=== PATIENT | female | born 1965 | race Caucasian/White ===

== ENCOUNTER → 2016-10-26 | Outpatient (CLI) | payer OTHER ==
[~2016-10-26] MED LIST: /LOR25TA PO; /RALO60TA PO; /RISPSOL3 GT; ACET-654 PO; ACET325S2 PR; ACTO45TA PO; ALBU17IN INH; ALLE60TA69 PO; ALLI60CA2 PO; AMLO5TAB2 PO; ASMA1AER3 IN; ASPI81TA7 PO; BABY81CH PO; BENA25CA2 PO; BUPR10TASR PO; BUPR15TA PO; BUTACAP78 PO; CALCCHW12 PO; CETI10TA PO; COMBVENT INH; CYCL10TA PO; DARV100T; DARV100T PO; DICL1POW30 PO; DOCQ100C PO; EPIP0.3I2 IM; ETOD400T PO; FENO160T10 PO; FENO54TA2 PO; FERR325T PO; FERR325T3 PO; GABA300C2 PO; GLIP5TAB8 PO; GLUC1000 PO; HYDR-3713 PO; HYDR12.55 PO; HYDR25TA6 OR; INSULANT SC; LEVOTHYROXINE; LITH300T2 PO; MOBI15TA PO; MULTCAP PO; NIAS10003 PO; NICO14DI3 TD; OMEP20CA3 PO; OMEP40CA2 PO; PREG100CA PO; PREG50CA; PRIN10TA PO; PROP40SO PO; RALO1TAB PO; RISP-4 PO; RISP1TAB21 PO; ROBA750T4 PO; SALMDISK INH; SERO1TAB PO; SERO50TA PO; SIMV10TA2 PO; SING5CHW PO; TIZA4TAB PO; TOPA25TA10 PO; TRAZ100T PO; TYLENOL #3 OR; ULTR50TA PO; VIT D 2000 PO; VITA500C24 PO; WELL200T PO; ZOCO10TA PO; [UNRECOGNIZED DRUG - CODE] PO; [UNRECOGNIZED DRUG - OTHER] INH; asthmanex INH; symbicort INH
--- NOTE | 2016-11-12 01:31 | ECWPNPC ---
PATIENT NAME: JAMES LORENZO : 1965 GENDER: FEMALE VISIT DATE: 10/26/2016 DISCHARGE DATE: 10/26/16 1024 VISIT LOCKED DATE TIME: PHYSICIAN: SYED AZUL RESOURCE: SYED AZUL REASON FOR APPOINTMENT 1. BACK HISTORY OF PRESENT ILLNESS HISTORY OF PRESENT ILLNESS: PAIN THE PATIENT DESCRIBES THE PAIN... FALL RISK SCREENING: SCREENING :NO FALLS IN THE PAST YEAR TODAY'S VISIT: NOTES: RATES PAIN TODAY 05/27. REPORTS" HEADACHE FROM HELL", HAS BEEEN CONSTANT FOR 2 DAYS. IS ALSO HAVING A FIBRO FLAIR. NOTES SHE IS ITCHY ALL OVER. HAS SEASONAL ALLERGIES.. CURRENT MEDICATIONS TAKING BREO ELLIPTA 100-25 MCG/INH AEROSOL POWDER BREATH ACTIVATED 1 PUFF INHALATION ONCE A DAY AT NIGHT TAKING SEROQUEL 200 MG TABLET 1 TABLET AT BEDTIME ORALLY AT BEDTIME TAKING WELLBUTRIN SR 100 MG TABLET EXTENDED RELEASE ORALLY DAILY TAKING SADE ALLERGY 180 MG TABLET 1 TABLET ORALLY ONCE A DAY TAKING GLIPIZIDE 5 MG TABLET 1/2 TABLET ORALLY ONCE A DAY TAKING FENOFIBRATE 160 MG TABLET 1 TABLET WITH A MEAL ORALLY ONCE A DAY TAKING SINGULAIR 10 MG TABLET 1 TABLET IN THE EVENING ORALLY ONCE A DAY TAKING PRILOSEC 20 MG CAPSULE DELAYED RELEASE 1 CAPSULE ORALLY TWICE DAILY TAKING RISPERDAL 1 MG TABLET 1 TABLET ORALLY EVERY AM TAKING METFORMIN HCL 1000 MG TABLET 1 TABLET WITH MEALS ORALLY TWICE A DAY TAKING ONE TOUCH/ONE TOUCH II STARTER ONE TOUCH STIPS 1 STRIP SUBCUTANEOUSLY TWICE A DAY DX: 250.00 TAKING EVISTA 60 MG TABLET 1 TABLET ORALLY ONCE A DAY TAKING ASPIRIN 81 MG TABLET CHEWABLE 1 TABLET (TAKING TWICE A DAY) BY MOUTH ONCE A DAY TAKING RISPERDAL 0.5 MG TABLET 1 TABLET ORALLY AT BEDTIME TAKING TOPAMAX 100 MG TABLET 1/2 TAB IN AM, 1 TAB AT BEDTIME ORALLY TWICE A DAY TAKING PROPRANOLOL HCL CR 120 MG CAPSULE EXTENDED RELEASE 24 HOUR 1 CAPSULE ORALLY ONCE A DAY TAKING HYDROCHLOROTHIAZIDE 12.5 MG CAPSULE 1 CAPSULE ORALLY ONCE A DAY TAKING RASPBERRY KETONES 100 MG CAPSULE ORALLY TAKING BUSPAR 5 MG TABLET 1 TABLET ORALLY DAILY TAKING TIZANIDINE HCL 4 MG TABLET 1 TAB ORALLY EVERY 8 HOURS MDD 3 TABS TAKING NORCO 5-325 MG TABLET 1 TAB(S) ORALLY EVERY 6 HOURS PRN PAIN MDD=4 TAKING GABAPENTIN 400 MG CAPSULE 1 CAPSULE ORALLY THREE TIMES A DAY TAKING TRAMADOL HCL 50 MG TABLET 1 -2 TABLET ORALLY EVERY 4 -6 HRS PRN PAIN MDD = 6 TAKING ATORVASTATIN CALCIUM 20 MG TABLET 1 TABLET ORALLY ONCE A DAY TAKING TOUJEO SOLOSTAR 300 UNIT/ML SOLUTION PEN-INJECTOR 60 UNITS SUBCUTANEOUS DAILY DISCONTINUED LANTUS SOLOSTAR 100 UNIT/ML SOLUTION 60 UNITS SUBCUTANEOUS DAILY AT LUNCH TIME UNKNOWN CLOTRIMAZOLE-BETAMETHASONE 1-0.05 % CREAM 1 APPLICATION TO AFFECTED AREA EXTERNALLY TWICE A DAY NEEDED UNKNOWN SYRINGE 1CC SYRINGES 1 SYRINGE INTRAMUSCULARLY ONCE A DAY UNKNOWN BLOOD PRESSURE MONITOR DX: 401.9 HOME BLOOD PRESSURE MONITOR TWICE A DAY MEDICATION LIST REVIEWED AND RECONCILED WITH THE PATIENT PAST MEDICAL HISTORY BIPOLAR DISORDER-MANAGED BY DR. 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, INSULIN REQUIRING HYPOTHYROIDISM HYPERLIPIDEMIA 2B OBESITY, MORBID NONALCOHOLIC FATTY LIVER DISEASE-SEEN DIET FEBRUARY 2006 ULTRASOUND ANEMIA, IRON DEFICIENCY-PATIENT REFUSES ENDOSCOPY EARLY MENOPAUSE AT AGE 42 ALLERGIES PENICILLIN (FOR ALLERGIES USE ONLY): DEADLY: ALLERGY AMOXICILLIN: DEADLY: ALLERGY TEGRETOL: DEADLY: ALLERGY CLARITIN: SOB: ALLERGY NIASPAN: HIVES BACLOFEN: HALLUCINATIONS MOBIC: SEVERE MIGRAINES: SIDE EFFECTS CLINDAMYCIN HCL: ANAPHYLAXIS: ALLERGY SOCIAL HISTORY GENERAL: TOBACCO USE ARE YOU A:NONSMOKER LEARNING BARRIERS / SPECIAL NEEDS ORIENTED TO PLAN OF CARE: PATIENT, PAIN MANAGEMENT PATIENT, ORIENTED TO PLAN OF CARE: PATIENT, PAIN MANAGEMENT PATIENT. NEW PATIENT PAIN DIARY TODAY'S VISITNOTES FROM 0-10, WHAT LEVEL IS YOUR PAIN TODAY?0 PAIN CLINIC PFS, CLERGY, PUBLIC HEALTH REFERRALS PFS REFERRAL NEEDED?NO CLERGY REFERRAL NEEDED?NO PUBLIC HEALTH REFERRAL NEEDED?NO WAS THE PROVIDER NOTIFIED OF ANY PERTINENT INFO?NO PFS REFERRAL NEEDED?NO CLERGY REFERRAL NEEDED?NO PUBLIC HEALTH REFERRAL NEEDED?NO WAS THE PROVIDER NOTIFIED OF ANY PERTINENT INFO?NO REVIEW OF SYSTEMS CONSTITUTIONAL: ANY CHANGE IN YOUR MEDICAL CONDITION? NO . CHILLS NO . FEVER NO . INFECTION: DO YOU HAVE NEW INFECTIONS? NO . DO YOU HAVE HISTORY OF MRSA? NO . MUSCULOSKELETAL: ANY NEW PATTERNS OF PAIN OR NUMBNESS? NO . GASTROENTEROLOGY: ANY NEW CHANGE IN BOWEL CONTROL? NO . GENITOURINARY: ANY NEW CHANGE IN BLADDER CONTROL? NO . IS THERE A CHANCE YOU COULD BE ? NO . HEMATOLOGY/LYMPH: DO YOU TAKE ANY BLOOD THINNERS? (FOR EXAMPLE- COUMADIN, PLAVIX, AGGRENOX, PLATEL, PRADAXA, OR XARELTO) NO . WHEN WAS YOUR LAST DOSE? DATE: TIME: . NEUROLOGY: HAVE YOU FALLEN IN THE PAST 6 MONTHS? YES . ANY NEW EXTREMITY NUMBNESS OR WEAKNESS? NO . CARDIOLOGY: DO YOU HAVE A PACEMAKER OR DEFIBRILLATOR? NO . RESPIRATORY: HAVE YOU BEEN SICK IN THE PAST WEEK? NO . FEVER NO . FLU LIKE SYMPTOMS? NO . COUGH NO . INTEGUMENTARY: DO YOU HAVE ANY RASHES OR OPEN SORES? NO . ALLERGIC/IMMUNO: ARE YOU ALLERGIC TO SHELLFISH OR IV DYE? NO . ANY NEW ALLERGIES? NO . PSYCHIATRIC: DO YOU HAVE THOUGHTS OF HURTING YOURSELF OR SOMEONE ELSE? NO . ARE YOU ABUSED, NEGLECTED, OR IN AN UNSAFE ENVIRONMENT? NO . ENDOCRINOLOGY: ARE YOU DIABETIC? YES - NOTES LOW BLOOD SUGARS . OTHER: DO YOU NEED ANY PRESCRIPTIONS? YES . IF YES, PLEASE LIST: NOT SURE . ANY NEW PROBLEMS WITH YOUR MEDICATIONS? NO . WHEN DID YOU LAST EAT? ____ . WHEN DID YOU LAST DRINK? ____ . WHAT DID YOU LAST DRINK? ____ . NAME OF PERSON DRIVING YOU HOME? ____ . DO YOU HAVE ANY OTHER QUESTIONS OR CONCERNS NO . REVIEWED BY: PROVIDER: SYED SOUZA . VITAL SIGNS WT 170 LBS, HT 64 IN, BMI 29.18 INDEX, BP 150/80 MM HG, HR 72 /MIN, RR 18 /MIN, TEMP 97.2 F, OXYGEN SAT % 99%, NA INITIALS SC 09:42. EXAMINATION GENERAL EXAMINATION: PSYCHALERT , ORIENTED X 3 . NECK:BILATERAL THRYOID ENLARGEMENT. TENDER. LUNGS:LUNG SOUNDS ARE CLEAR. HEART:HEART RATE REGULAR. MUSCULOSKELETAL:MUSCLE STRENGTH TESTING 5/5 BILATERAL LOWER EXTREMITIES. ABLE TO RISE TO STANDING POSITION. POSTURE STOOPED. GAIT SLOW. , TRIGGER POINTS:, ELICITED WITH PALPATION OVER LUMBAR PARAVERTEBRAL MUSCLES AND INTO THE SACRUM. RESTRICTION OF ROM IN THIS AREA. . ASSESSMENTS MYALGIA - M79.1 (PRIMARY) LUMBAR DISC DISPLACEMENT WITHOUT MYELOPATHY - M51.26 CHRONIC PRESCRIPTION OPIATE USE - Z79.899 TREATMENT MYALGIA TRIGGER POINT 3 + SYED MISHRA 10/26/2016 10:14:52 AM > NECK AND SHOULDERS NOTES: KEEP TRACK OF BLOOD SUGARS FOR DR PERAZA. MUST BRING MEDS TO VISIT. WALK TOLERATED. LIFT 1 LB WEIGHTS FOR UPPER BODY EXERCISE. PROCEDURE CODES 33270 INJECT TRIGGER POINTS, =/> 3 FOLLOW UP AFTER INJECTION ELECTRONICALLY SIGNED BY SAQIB ALEJO ON 11/09/2016 AT 09:43 AM EST DISCLAIMER : THIS IS A VISIT SUMMARY EXTRACTED FROM THE [employer] CHART. IT IS NOT A COPY OF THE [employer] PROGRESS NOTE. LETHA
== END ==
LOC: M PAIN 09:20
PROVIDERS: ATTEND Nurse Practitioner Family
DX: Z09 Encounter for follow-up examination after completed treatment for conditions other than malignant neoplasm (principal); M79.1 Myalgia; M51.26 Other intervertebral disc displacement, lumbar region; M51.36 Other intervertebral disc degeneration, lumbar region; E11.9 Type 2 diabetes mellitus without complications; Z79.4 Long term (current) use of insulin; E03.9 Hypothyroidism, unspecified; E78.5 Hyperlipidemia, unspecified; D50.9 Iron deficiency anemia, unspecified; K76.0 Fatty (change of) liver, not elsewhere classified; E66.9 Obesity, unspecified; Z68.29 Body mass index [BMI] 29.0-29.9, adult; J44.9 Chronic obstructive pulmonary disease, unspecified; I10 Essential (primary) hypertension; I87.2 Venous insufficiency (chronic) (peripheral); R60.0 Localized edema; F17.200 Nicotine dependence, unspecified, uncomplicated; E28.319 Asymptomatic premature menopause; F31.9 Bipolar disorder, unspecified; Z88.0 Allergy status to penicillin; Z88.1 Allergy status to other antibiotic agents; Z88.8 Allergy status to other drugs, medicaments and biological substances; Z79.84 Long term (current) use of oral hypoglycemic drugs; Z79.82 Long term (current) use of aspirin; Z79.891 Long term (current) use of opiate analgesic; Z79.899 Other long term (current) drug therapy; Z85.59 Personal history of malignant neoplasm of other urinary tract organ

== ENCOUNTER → 2016-11-05 | Outpatient (CLI) | payer OTHER ==
[~2016-11-05] MED LIST changes: +BUPIVACAINE HCL 0.25% 10 ML VIAL As Ordered ONE; +BUPIVACAINE HCL 0.25% 30 ML VIAL As Ordered ONE; +TRIAMCINOLONE ACETONIDE SUSP 40 MG/ML VIAL (J3301) As Ordered ONE
--- NOTE | 2016-11-08 23:39 | ECWPNPC ---
PATIENT NAME: JAMES LORENZO : 1965 GENDER: FEMALE VISIT DATE: 11/05/2016 DISCHARGE DATE: 11/05/16 09 VISIT LOCKED DATE TIME: PHYSICIAN: HENRY STEVENS RESOURCE: HENRY STEVENS REASON FOR APPOINTMENT 1. TPI HISTORY OF PRESENT ILLNESS HISTORY OF PRESENT ILLNESS: PAIN THE PATIENT DESCRIBES THE PAIN... FALL RISK SCREENING: SCREENING :NO FALLS IN THE PAST YEAR CURRENT MEDICATIONS TAKING BREO ELLIPTA 100-25 MCG/INH AEROSOL POWDER BREATH ACTIVATED 1 PUFF INHALATION ONCE A DAY AT NIGHT, NOTES: 1 MONTH AGO TAKING SEROQUEL 200 MG TABLET 1 TABLET AT BEDTIME ORALLY AT BEDTIME, NOTES: 11/04 11PM TAKING WELLBUTRIN SR 100 MG TABLET EXTENDED RELEASE ORALLY DAILY, NOTES: 11/05 7AM TAKING SADE ALLERGY 180 MG TABLET 1 TABLET ORALLY ONCE A DAY, NOTES: 11/04 9PM TAKING GLIPIZIDE 5 MG TABLET 1/2 TABLET ORALLY ONCE A DAY, NOTES: 11/04 9AM TAKING FENOFIBRATE 160 MG TABLET 1 TABLET WITH A MEAL ORALLY ONCE A DAY, NOTES: 11/04 9PM TAKING SINGULAIR 10 MG TABLET 1 TABLET IN THE EVENING ORALLY ONCE A DAY, NOTES: 11/05 7AM TAKING PRILOSEC 20 MG CAPSULE DELAYED RELEASE 1 CAPSULE ORALLY TWICE DAILY, NOTES: 11/05 7AM TAKING RISPERDAL 1 MG TABLET 1 TABLET ORALLY EVERY AM, NOTES: 11/05 7AM TAKING METFORMIN HCL 1000 MG TABLET 1 TABLET WITH MEALS ORALLY TWICE A DAY, NOTES: 11/04 9AM TAKING ONE TOUCH/ONE TOUCH II STARTER ONE TOUCH STIPS 1 STRIP SUBCUTANEOUSLY TWICE A DAY DX: 250.00 TAKING EVISTA 60 MG TABLET 1 TABLET ORALLY ONCE A DAY, NOTES: 11/05 7AM TAKING ASPIRIN 81 MG TABLET CHEWABLE 1 TABLET (TAKING TWICE A DAY) BY MOUTH ONCE A DAY, NOTES: 1 MONTH AGO TAKING RISPERDAL 0.5 MG TABLET 1 TABLET ORALLY AT BEDTIME, NOTES: 11/04 9PM TAKING TOPAMAX 100 MG TABLET 1/2 TAB IN AM, 1 TAB AT BEDTIME ORALLY TWICE A DAY, NOTES: 11/05 7AM TAKING PROPRANOLOL HCL CR 120 MG CAPSULE EXTENDED RELEASE 24 HOUR 1 CAPSULE ORALLY ONCE A DAY, NOTES: 11/05 7AM TAKING RASPBERRY KETONES 100 MG CAPSULE ORALLY , NOTES: 11/05 7AM TAKING BUSPAR 5 MG TABLET 1 TABLET ORALLY DAILY, NOTES: 11/05 7AM TAKING TIZANIDINE HCL 4 MG TABLET 1 TAB ORALLY EVERY 8 HOURS MDD 3 TABS, NOTES: 11/05 7AM TAKING NORCO 5-325 MG TABLET 1 TAB(S) ORALLY EVERY 6 HOURS PRN PAIN MDD=4, NOTES: 11/05 7AM TAKING GABAPENTIN 400 MG CAPSULE 1 CAPSULE ORALLY THREE TIMES A DAY, NOTES: 11/05 7AM TAKING TRAMADOL HCL 50 MG TABLET 1 -2 TABLET ORALLY EVERY 4 -6 HRS PRN PAIN MDD = 6, NOTES: 11/05 7AM TAKING ATORVASTATIN CALCIUM 20 MG TABLET 1 TABLET ORALLY ONCE A DAY, NOTES: 11/05 7AM TAKING TOUJEO SOLOSTAR 300 UNIT/ML SOLUTION PEN-INJECTOR 60 UNITS SUBCUTANEOUS DAILY TAKING LANTUS 100 UNIT/ML SOLUTION 60 UNITS SUBCUTANEOUS DAILY, NOTES: 11/04 12NOON NOT-TAKING HYDROCHLOROTHIAZIDE 12.5 MG CAPSULE 1 CAPSULE ORALLY ONCE A DAY UNKNOWN CLOTRIMAZOLE-BETAMETHASONE 1-0.05 % CREAM 1 APPLICATION TO AFFECTED AREA EXTERNALLY TWICE A DAY NEEDED UNKNOWN SYRINGE 1CC SYRINGES 1 SYRINGE INTRAMUSCULARLY ONCE A DAY UNKNOWN BLOOD PRESSURE MONITOR DX: 401.9 HOME BLOOD PRESSURE MONITOR TWICE A DAY MEDICATION LIST REVIEWED AND RECONCILED WITH THE PATIENT PAST MEDICAL HISTORY BIPOLAR DISORDER-MANAGED BY DR. 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, INSULIN REQUIRING HYPOTHYROIDISM HYPERLIPIDEMIA 2B OBESITY, MORBID NONALCOHOLIC FATTY LIVER DISEASE-SEEN DIET FEBRUARY 2006 ULTRASOUND ANEMIA, IRON DEFICIENCY-PATIENT REFUSES ENDOSCOPY EARLY MENOPAUSE AT AGE 42 ALLERGIES PENICILLIN (FOR ALLERGIES USE ONLY): DEADLY: ALLERGY AMOXICILLIN: DEADLY: ALLERGY TEGRETOL: DEADLY: ALLERGY CLARITIN: SOB: ALLERGY NIASPAN: HIVES BACLOFEN: HALLUCINATIONS MOBIC: SEVERE MIGRAINES: SIDE EFFECTS CLINDAMYCIN HCL: ANAPHYLAXIS: ALLERGY SOCIAL HISTORY GENERAL: TOBACCO USE ARE YOU A:NONSMOKER LEARNING BARRIERS / SPECIAL NEEDS ORIENTED TO PLAN OF CARE: PATIENT, PAIN MANAGEMENT PATIENT, ORIENTED TO PLAN OF CARE: PATIENT, PAIN MANAGEMENT PATIENT. NEW PATIENT PAIN DIARY TODAY'S VISITNOTES FROM 0-10, WHAT LEVEL IS YOUR PAIN TODAY?0 PAIN CLINIC PFS, CLERGY, PUBLIC HEALTH REFERRALS PFS REFERRAL NEEDED?NO CLERGY REFERRAL NEEDED?NO PUBLIC HEALTH REFERRAL NEEDED?NO WAS THE PROVIDER NOTIFIED OF ANY PERTINENT INFO?NO PFS REFERRAL NEEDED?NO CLERGY REFERRAL NEEDED?NO PUBLIC HEALTH REFERRAL NEEDED?NO WAS THE PROVIDER NOTIFIED OF ANY PERTINENT INFO?NO REVIEW OF SYSTEMS CONSTITUTIONAL: ANY CHANGE IN YOUR MEDICAL CONDITION? NO . CHILLS NO . FEVER NO . INFECTION: DO YOU HAVE NEW INFECTIONS? NO . DO YOU HAVE HISTORY OF MRSA? NO . MUSCULOSKELETAL: ANY NEW PATTERNS OF PAIN OR NUMBNESS? NO . GASTROENTEROLOGY: ANY NEW CHANGE IN BOWEL CONTROL? NO . GENITOURINARY: ANY NEW CHANGE IN BLADDER CONTROL? NO . IS THERE A CHANCE YOU COULD BE ? NO . HEMATOLOGY/LYMPH: DO YOU TAKE ANY BLOOD THINNERS? (FOR EXAMPLE- COUMADIN, PLAVIX, AGGRENOX, PLATEL, PRADAXA, OR XARELTO) NO . WHEN WAS YOUR LAST DOSE? DATE: TIME: . NEUROLOGY: HAVE YOU FALLEN IN THE PAST 6 MONTHS? YES, PT STATES THAT SHE WAS OUT WALKING AND TRIPPED OVER SHOELACE, NO INJURY FROM FALL, NO REPORT TO ED . ANY NEW EXTREMITY NUMBNESS OR WEAKNESS? NO . CARDIOLOGY: DO YOU HAVE A PACEMAKER OR DEFIBRILLATOR? NO . RESPIRATORY: HAVE YOU BEEN SICK IN THE PAST WEEK? NO . FEVER NO . FLU LIKE SYMPTOMS? NO . COUGH NO . INTEGUMENTARY: DO YOU HAVE ANY RASHES OR OPEN SORES? NO . ALLERGIC/IMMUNO: ARE YOU ALLERGIC TO SHELLFISH OR IV DYE? NO . ANY NEW ALLERGIES? NO . PSYCHIATRIC: DO YOU HAVE THOUGHTS OF HURTING YOURSELF OR SOMEONE ELSE? NO . ARE YOU ABUSED, NEGLECTED, OR IN AN UNSAFE ENVIRONMENT? NO . ENDOCRINOLOGY: ARE YOU DIABETIC? YES, PT STATES FSBS 134 AT 6AM . OTHER: DO YOU NEED ANY PRESCRIPTIONS? NO . IF YES, PLEASE LIST: ____ . ANY NEW PROBLEMS WITH YOUR MEDICATIONS? NO . WHEN DID YOU LAST EAT? 11/04 9PM . WHEN DID YOU LAST DRINK? 11/05 6:30AM . WHAT DID YOU LAST DRINK? BLACK COFFEE . NAME OF PERSON DRIVING YOU HOME? ELI WISEMANJEANNIEClaudia . DO YOU HAVE ANY OTHER QUESTIONS OR CONCERNS NO, PT STATES THAT SHE HAS NOT HAD FLU SHOT IN YEARS. . REVIEWED BY: PROVIDER: . VITAL SIGNS WT 170 LBS, HT 64 IN, BMI 29.18 INDEX, BP 142/68 MM HG, HR 76 /MIN, RR 16 /MIN, TEMP 97.2 F, OXYGEN SAT % 96, SAFE IN ENV? (Y/N) Y, NA INITIALS TL 0850, REVIEWED BY: TIANNA. ASSESSMENTS MYALGIA - M79.1 (PRIMARY) PROCEDURES PN TRIGGER POINT INJECTION WITH STEROIDS PRE PROCEDURE DIAGNOSIS 1. MYALGIA 2. PAIN AT LEFT SHOULDER AREA AND BILATERAL LOW BACK AREA POST PROCEDURE DIAGNOSIS 1. MYALGIA 2. PAIN AT LEFT SHOULDER AREA AND BILATERAL LOW BACK AREA PROCEDURE TRIGGER POINT INJECTION AT LEFT SHOULDER AREA AND BILATERAL LOW BACK AREA SURGEON DR. HENRY STEVENS MANAGER COSTING NONE ANESTHESIA LOCAL PRE PROCEDURE NOTE THE PATIENT HAS A HISTORY OF CHRONIC PAIN AT THE LEFT SHOULDER AREA AND RIGHT AND LEFT LOW BACK AREA. I EVALUATE THE PATIENT AND REVIEWED THE CHART. THERE IS EVIDENCE OF BANDS OF TISSUE WITH RESTRICTION OF MOVEMENT AND PRESENCE OF TRIGGER POINT AT THE AFFECTED AREA. I WENT OVER THE RISKS, ALTERNATIVES, AND BENEFITS ASSOCIATED WITH THIS PROCEDURE. THE PATIENT WOULD LIKE TO PROCEED AND GIVE CONSENT TO PERFORMED THE PROCEDURE. THE PATIENT DENIES UNEXPLAINABLE WEIGHT LOSS, FEVER, CHILLS, OR NEW CHANGES IN URINARY OR BOWEL CONTROL DESCRIPTION OF PROCEDURE THE PATIENT WAS BROUGHT TO THE PROCEDURE ROOM AND PLACED IN THE SITTING POSITION. THE AREA WAS CLEANED WITH ALCOHOL. THE PROCEDURE WAS DONE USING ASEPTIC STERILE TECHNIQUE. I CHECKED LATERALITY AND THE LEVEL WHERE THE PROCEDURE WAS GOING TO BE PERFORMED WITH THE PATIENT AND THE SUPPORTING STAFF AT THE MOMENT OF THE TIME OUT IN THE PROCEDURE ROOM. USING A 25-GAUGE NEEDLE, TRIGGER POINTS WERE INJECTED AT THE LEFT SHOULDER AREA AND RIGHT AND LEFT LOW BACK AREA WITH A TOTAL OF 40 ML OF BUPIVACAINE 0.25% AND KENALOG 40 MG. THERE WAS NO EVIDENCE OF BLOOD, PARESTHESIA OR CEREBROSPINAL FLUID DURING THE PROCEDURE. THE PATIENT WAS SENT TO THE RECOVERY ROOM. THE PATIENT WAS MOVING THE EXTREMITIES AND DOING WELL. THERE WAS NO COMPLICATION DURING THE PROCEDURE POST PROCEDURE NOTE THE PATIENT WILL BE SEEN IN A FOLLOW UP IN THE NEXT FEW WEEKS. INSTRUCTIONS WERE GIVEN, QUESTIONS WERE ANSWERED, AND THE PATIENT EXPRESSED UNDERSTANDING AND AGREES WITH THE PLAN. INSTRUCTIONS WERE GIVEN, QUESTIONS WERE ANSWERED, PATIENT REPORTS UNDERSTANDING AND AGREES WITH THE PLAN. I, LEORA GARCIA, DOCUMENTED THE ABOVE INFORMATION ACTING A SCRIBE FOR DR. STEVENS. I HAVE REVIEWED THE ABOVE DOCUMENT, WRITTEN BY LEORA GARCIA SCRIBCarey AND I VERIFY THAT IT IS ACCURATE. PROCEDURE CODES 78741 INJECT TRIGGER POINTS 3/> FOLLOW UP 3 WEEKS ELECTRONICALLY SIGNED BY HENRY STEVENS MD ON 11/08/2016 AT 10:50 PM EST DISCLAIMER : THIS IS A VISIT SUMMARY EXTRACTED FROM THE [employer] CHART. IT IS NOT A COPY OF THE [employer] PROGRESS NOTE. LETHA
== END ==
LOC: M PAIN 09:00
PROVIDERS: ATTEND Anesthesiology
DX: G89.29 Other chronic pain (principal); M79.1 Myalgia; M25.512 Pain in left shoulder; M54.5 Low back pain; F31.9 Bipolar disorder, unspecified; E11.9 Type 2 diabetes mellitus without complications; Z79.4 Long term (current) use of insulin; E78.5 Hyperlipidemia, unspecified; E03.9 Hypothyroidism, unspecified; J44.9 Chronic obstructive pulmonary disease, unspecified; I10 Essential (primary) hypertension; I87.2 Venous insufficiency (chronic) (peripheral); E66.9 Obesity, unspecified; Z68.29 Body mass index [BMI] 29.0-29.9, adult; M51.36 Other intervertebral disc degeneration, lumbar region; K76.0 Fatty (change of) liver, not elsewhere classified; D64.9 Anemia, unspecified; Z88.0 Allergy status to penicillin; Z88.1 Allergy status to other antibiotic agents; Z88.5 Allergy status to narcotic agent; Z88.8 Allergy status to other drugs, medicaments and biological substances; Z79.84 Long term (current) use of oral hypoglycemic drugs; Z79.82 Long term (current) use of aspirin; Z79.891 Long term (current) use of opiate analgesic; Z79.899 Other long term (current) drug therapy; Z87.891 Personal history of nicotine dependence; Z85.59 Personal history of malignant neoplasm of other urinary tract organ
CPT/HCPCS: 20553; J3301

== ENCOUNTER → 2016-11-20 | Outpatient (CLI) | payer OTHER ==
[~2016-11-20] MED LIST changes: -BUPIVACAINE HCL 0.25% 10 ML VIAL As Ordered ONE; -BUPIVACAINE HCL 0.25% 30 ML VIAL As Ordered ONE; -TRIAMCINOLONE ACETONIDE SUSP 40 MG/ML VIAL (J3301) As Ordered ONE
--- NOTE | 2016-12-10 01:25 | ECWPNPC ---
PATIENT NAME: JAMES LORENZO : 1965 GENDER: FEMALE VISIT DATE: 11/20/2016 DISCHARGE DATE: 11/20/16 1142 VISIT LOCKED DATE TIME: PHYSICIAN: SYED AZUL RESOURCE: SYED AZUL REASON FOR APPOINTMENT 1. POST PROCEDURE- SHOULDER/LBP HISTORY OF PRESENT ILLNESS HISTORY OF PRESENT ILLNESS: PAIN THE PATIENT DESCRIBES THE PAIN... FALL RISK SCREENING: SCREENING :NO FALLS IN THE PAST YEAR TODAY'S VISIT: NOTES: RATES PAIN TODAY 8/10. NOTES PAIN IS CONSTANT, ACHING AND BURNING, SHARP. NOTES FIBROMYALGIA IS BOTHING SHOULDERS AND ARMS.IS S/P TPI ON 11/05/16. THIS SIGNIF IMPROVED THE MOBILITY BUT ONLY HAD PAIN REDUCTION FOR A DAY OR SO. HAS BEEN HAVING URI SX.. CURRENT MEDICATIONS TAKING BREO ELLIPTA 100-25 MCG/INH AEROSOL POWDER BREATH ACTIVATED 1 PUFF INHALATION ONCE A DAY AT NIGHT, NOTES: 1 MONTH AGO TAKING SEROQUEL 200 MG TABLET 1 TABLET AT BEDTIME ORALLY AT BEDTIME, NOTES: 11/04 11PM TAKING WELLBUTRIN SR 100 MG TABLET EXTENDED RELEASE ORALLY DAILY, NOTES: 11/05 7AM TAKING SADE ALLERGY 180 MG TABLET 1 TABLET ORALLY ONCE A DAY, NOTES: 11/04 9PM TAKING GLIPIZIDE 5 MG TABLET 1/2 TABLET ORALLY ONCE A DAY, NOTES: 11/04 9AM TAKING FENOFIBRATE 160 MG TABLET 1 TABLET WITH A MEAL ORALLY ONCE A DAY, NOTES: 11/04 9PM TAKING SINGULAIR 10 MG TABLET 1 TABLET IN THE EVENING ORALLY ONCE A DAY, NOTES: 11/05 7AM TAKING PRILOSEC 20 MG CAPSULE DELAYED RELEASE 1 CAPSULE ORALLY TWICE DAILY, NOTES: 11/05 7AM TAKING RISPERDAL 1 MG TABLET 1 TABLET ORALLY EVERY AM, NOTES: 11/05 7AM TAKING METFORMIN HCL 1000 MG TABLET 1 TABLET WITH MEALS ORALLY TWICE A DAY, NOTES: 11/04 9AM TAKING ONE TOUCH/ONE TOUCH II STARTER ONE TOUCH STIPS 1 STRIP SUBCUTANEOUSLY TWICE A DAY DX: 250.00 TAKING EVISTA 60 MG TABLET 1 TABLET ORALLY ONCE A DAY, NOTES: 11/05 7AM TAKING ASPIRIN 81 MG TABLET CHEWABLE 1 TABLET (TAKING TWICE A DAY) BY MOUTH ONCE A DAY, NOTES: 1 MONTH AGO TAKING RISPERDAL 0.5 MG TABLET 1 TABLET ORALLY AT BEDTIME, NOTES: 11/04 9PM TAKING PROPRANOLOL HCL CR 120 MG CAPSULE EXTENDED RELEASE 24 HOUR 1 CAPSULE ORALLY ONCE A DAY, NOTES: 11/05 7AM TAKING RASPBERRY KETONES 100 MG CAPSULE ORALLY , NOTES: 11/05 7AM TAKING BUSPAR 5 MG TABLET 1 TABLET ORALLY DAILY, NOTES: 11/05 7AM TAKING TIZANIDINE HCL 4 MG TABLET 1 TAB ORALLY EVERY 8 HOURS MDD 3 TABS, NOTES: 11/05 7AM TAKING NORCO 5-325 MG TABLET 1 TAB(S) ORALLY EVERY 6 HOURS PRN PAIN MDD=4, NOTES: 11/05 7AM TAKING GABAPENTIN 400 MG CAPSULE 1 CAPSULE ORALLY THREE TIMES A DAY, NOTES: 11/05 7AM TAKING TRAMADOL HCL 50 MG TABLET 1 -2 TABLET ORALLY EVERY 4 -6 HRS PRN PAIN MDD = 6, NOTES: 11/05 7AM TAKING ATORVASTATIN CALCIUM 20 MG TABLET 1 TABLET ORALLY ONCE A DAY, NOTES: 11/05 7AM TAKING TOUJEO SOLOSTAR 300 UNIT/ML SOLUTION PEN-INJECTOR 60 UNITS SUBCUTANEOUS DAILY TAKING LANTUS 100 UNIT/ML SOLUTION 60 UNITS SUBCUTANEOUS DAILY, NOTES: 11/04 12NOON TAKING TOPAMAX 100 MG TABLET 1 TABLET ORALLY TWICE A DAY NOT-TAKING HYDROCHLOROTHIAZIDE 12.5 MG CAPSULE 1 CAPSULE ORALLY ONCE A DAY UNKNOWN CLOTRIMAZOLE-BETAMETHASONE 1-0.05 % CREAM 1 APPLICATION TO AFFECTED AREA EXTERNALLY TWICE A DAY NEEDED UNKNOWN SYRINGE 1CC SYRINGES 1 SYRINGE INTRAMUSCULARLY ONCE A DAY UNKNOWN BLOOD PRESSURE MONITOR DX: 401.9 HOME BLOOD PRESSURE MONITOR TWICE A DAY MEDICATION LIST REVIEWED AND RECONCILED WITH THE PATIENT PAST MEDICAL HISTORY BIPOLAR DISORDER-MANAGED BY DR. 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, INSULIN REQUIRING HYPOTHYROIDISM HYPERLIPIDEMIA 2B OBESITY, MORBID NONALCOHOLIC FATTY LIVER DISEASE-SEEN DIET FEBRUARY 2006 ULTRASOUND ANEMIA, IRON DEFICIENCY-PATIENT REFUSES ENDOSCOPY EARLY MENOPAUSE AT AGE 42 ALLERGIES PENICILLIN (FOR ALLERGIES USE ONLY): DEADLY: ALLERGY AMOXICILLIN: DEADLY: ALLERGY TEGRETOL: DEADLY: ALLERGY CLARITIN: SOB: ALLERGY NIASPAN: HIVES BACLOFEN: HALLUCINATIONS MOBIC: SEVERE MIGRAINES: SIDE EFFECTS CLINDAMYCIN HCL: ANAPHYLAXIS: ALLERGY SOCIAL HISTORY GENERAL: TOBACCO USE ARE YOU A:NONSMOKER LEARNING BARRIERS / SPECIAL NEEDS ORIENTED TO PLAN OF CARE: PATIENT, PAIN MANAGEMENT PATIENT, ORIENTED TO PLAN OF CARE: PATIENT, PAIN MANAGEMENT PATIENT. NEW PATIENT PAIN DIARY TODAY'S VISITNOTES FROM 0-10, WHAT LEVEL IS YOUR PAIN TODAY?0 PAIN CLINIC PFS, CLERGY, PUBLIC HEALTH REFERRALS PFS REFERRAL NEEDED?NO CLERGY REFERRAL NEEDED?NO PUBLIC HEALTH REFERRAL NEEDED?NO WAS THE PROVIDER NOTIFIED OF ANY PERTINENT INFO?NO PFS REFERRAL NEEDED?NO CLERGY REFERRAL NEEDED?NO PUBLIC HEALTH REFERRAL NEEDED?NO WAS THE PROVIDER NOTIFIED OF ANY PERTINENT INFO?NO REVIEW OF SYSTEMS CONSTITUTIONAL: ANY CHANGE IN YOUR MEDICAL CONDITION? NO . CHILLS NO . FEVER NO . INFECTION: DO YOU HAVE NEW INFECTIONS? NO . DO YOU HAVE HISTORY OF MRSA? NO . MUSCULOSKELETAL: ANY NEW PATTERNS OF PAIN OR NUMBNESS? NO . GASTROENTEROLOGY: ANY NEW CHANGE IN BOWEL CONTROL? NO . GENITOURINARY: ANY NEW CHANGE IN BLADDER CONTROL? NO . IS THERE A CHANCE YOU COULD BE ? NO . HEMATOLOGY/LYMPH: DO YOU TAKE ANY BLOOD THINNERS? (FOR EXAMPLE- COUMADIN, PLAVIX, AGGRENOX, PLATEL, PRADAXA, OR XARELTO) NO . WHEN WAS YOUR LAST DOSE? DATE: TIME: . NEUROLOGY: HAVE YOU FALLEN IN THE PAST 6 MONTHS? YES . ANY NEW EXTREMITY NUMBNESS OR WEAKNESS? NO . CARDIOLOGY: DO YOU HAVE A PACEMAKER OR DEFIBRILLATOR? NO . RESPIRATORY: HAVE YOU BEEN SICK IN THE PAST WEEK? YES . FEVER NO . FLU LIKE SYMPTOMS? NO . COUGH YES . INTEGUMENTARY: DO YOU HAVE ANY RASHES OR OPEN SORES? NO . ALLERGIC/IMMUNO: ARE YOU ALLERGIC TO SHELLFISH OR IV DYE? NO . ANY NEW ALLERGIES? NO . PSYCHIATRIC: DO YOU HAVE THOUGHTS OF HURTING YOURSELF OR SOMEONE ELSE? NO . ARE YOU ABUSED, NEGLECTED, OR IN AN UNSAFE ENVIRONMENT? NO . ENDOCRINOLOGY: ARE YOU DIABETIC? YES . OTHER: DO YOU NEED ANY PRESCRIPTIONS? YES . IF YES, PLEASE LIST: HYDROCODONE . ANY NEW PROBLEMS WITH YOUR MEDICATIONS? NO . WHEN DID YOU LAST EAT? ____ . WHEN DID YOU LAST DRINK? ____ . WHAT DID YOU LAST DRINK? ____ . NAME OF PERSON DRIVING YOU HOME? ____ . DO YOU HAVE ANY OTHER QUESTIONS OR CONCERNS NO . REVIEWED BY: PROVIDER: SYED WELLERP . VITAL SIGNS WT 170 LBS, HT 64 IN, BMI 29.18 INDEX, BP 140/80 MANUAL, HR 79 /MIN, RR 18 /MIN, TEMP 98.6 F, OXYGEN SAT % 95%, NA INITIALS SC 11:06, REVIEWED BY: RORY. EXAMINATION GENERAL EXAMINATION: PSYCHALERT , ORIENTED X 3 . NECK:BILATERAL THRYOID ENLARGEMENT. TENDER. LUNGS:LUNG SOUNDS ARE CLEAR. HEART:HEART RATE REGULAR. MUSCULOSKELETAL:MUSCLE STRENGTH TESTING 5/5 BILATERAL LOWER EXTREMITIES. ABLE TO RISE TO STANDING POSITION. POSTURE STOOPED. GAIT SLOW. , TRIGGER POINTS:, ELICITED WITH PALPATION OVER LUMBAR PARAVERTEBRAL MUSCLES AND INTO THE SACRUM. RESTRICTION OF ROM IN THIS AREA. . 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 TREATMENT MYALGIA REFILL NORCO TABLET, 5-325 MG, 1 TAB(S), ORALLY, EVERY 8 HOURS PRN PAIN MDD=3, 30 DAY(S), 120, REFILLS 0 START TESSALON PERLES CAPSULE, 100 MG, 1 CAPSULE NEEDED, ORALLY, THREE TIMES A DAY PRN COUGH, 10 DAY(S), 30, REFILLS 1 START [id number] CAPSULE, 24-485-11-30 MG, 1 CAPSULE NEEDED, ORALLY, EVERY 4 HRS PRN MIGRAINE MDD=2, 30 DAY(S), 30, REFILLS 1 START DULOXETINE HCL CAPSULE DELAYED RELEASE PARTICLES, 30 MG, 1 CAPSULE, ORALLY, DAILY, 30 DAY(S), 30 CAPSULE, REFILLS 1 PROCEDURE CODES [id number] ESTABILISHED PATIENT [facility] CHARGE DISPOSITION & COMMUNICATION FOLLOW UP 1 MONTHS ELECTRONICALLY SIGNED BY SAQIB ALEJO ON 12/09/2016 AT 12:10 PM EST DISCLAIMER : THIS IS A VISIT SUMMARY EXTRACTED FROM THE [facility] CHART. IT IS NOT A COPY OF THE [facility] PROGRESS NOTE. MTDD
== END ==
LOC: M PAIN 10:40
PROVIDERS: ATTEND Nurse Practitioner Family
DX: M79.1 Myalgia (principal); Z79.82 Long term (current) use of aspirin; Z79.84 Long term (current) use of oral hypoglycemic drugs; Z79.4 Long term (current) use of insulin; Z79.891 Long term (current) use of opiate analgesic; Z79.899 Other long term (current) drug therapy; I10 Essential (primary) hypertension; E11.9 Type 2 diabetes mellitus without complications

== ENCOUNTER → 2016-12-18 | Outpatient (CLI) | payer OTHER ==
--- NOTE | 2016-12-19 00:42 | ECWPNPC ---
PATIENT NAME: JAMES LORENZO : 1965 GENDER: FEMALE VISIT DATE: 12/18/2016 DISCHARGE DATE: 12/18/16 1136 VISIT LOCKED DATE TIME: PHYSICIAN: SYED AZUL RESOURCE: SYED AZUL REASON FOR APPOINTMENT 1. FIBROMIALGA HISTORY OF PRESENT ILLNESS HISTORY OF PRESENT ILLNESS: PAIN THE PATIENT DESCRIBES THE PAIN... FALL RISK SCREENING: SCREENING :NO FALLS IN THE PAST YEAR TODAY'S VISIT: NOTES: INCREASED PAIN AND MUSCLE SPASMS AT BACK OF HEAD, NECK AND SHOULDERS.RATES PAIN TODAY 7/10. DESCRIBES PAIN TIGHT, TENDER, SORE AND SHOOTING. CONTINUES TO HAVE SOME TIGHTNESS AT LOW BACK. NO RECENT FALLS. CURRENT MEDICATIONS TAKING BREO ELLIPTA 100-25 MCG/INH AEROSOL POWDER BREATH ACTIVATED 1 PUFF INHALATION ONCE A DAY AT NIGHT, NOTES: 1 MONTH AGO TAKING SEROQUEL 100 MG TABLET 1 TABLET AT BEDTIME ORALLY AT BEDTIME, NOTES: 11/04 11PM TAKING WELLBUTRIN SR 100 MG TABLET EXTENDED RELEASE ORALLY DAILY, NOTES: 11/05 7AM TAKING SADE ALLERGY 180 MG TABLET 1 TABLET ORALLY ONCE A DAY, NOTES: 11/04 9PM TAKING GLIPIZIDE 5 MG TABLET 1/2 TABLET ORALLY ONCE A DAY, NOTES: 11/04 9AM TAKING FENOFIBRATE 160 MG TABLET 1 TABLET WITH A MEAL ORALLY ONCE A DAY, NOTES: 11/04 9PM TAKING SINGULAIR 10 MG TABLET 1 TABLET IN THE EVENING ORALLY ONCE A DAY, NOTES: 11/05 7AM TAKING PRILOSEC 20 MG CAPSULE DELAYED RELEASE 1 CAPSULE ORALLY TWICE DAILY, NOTES: 11/05 7AM TAKING RISPERDAL 1 MG TABLET 1 TABLET ORALLY EVERY AM, NOTES: 11/05 7AM TAKING METFORMIN HCL 1000 MG TABLET 1 TABLET WITH MEALS ORALLY TWICE A DAY, NOTES: 11/04 9AM TAKING ONE TOUCH/ONE TOUCH II STARTER ONE TOUCH STIPS 1 STRIP SUBCUTANEOUSLY TWICE A DAY DX: 250.00 TAKING EVISTA 60 MG TABLET 1 TABLET ORALLY ONCE A DAY, NOTES: 11/05 7AM TAKING ASPIRIN 81 MG TABLET CHEWABLE 1 TABLET (TAKING TWICE A DAY) BY MOUTH ONCE A DAY TAKING RISPERDAL 0.5 MG TABLET 1 TABLET ORALLY AT BEDTIME TAKING PROPRANOLOL HCL CR 120 MG CAPSULE EXTENDED RELEASE 24 HOUR 1 CAPSULE ORALLY ONCE A DAY TAKING RASPBERRY KETONES 100 MG CAPSULE 1 DROP ORALLY BID TAKING TIZANIDINE HCL 4 MG TABLET 1 TAB ORALLY EVERY 8 HOURS MDD 3 TABS TAKING GABAPENTIN 400 MG CAPSULE 1 CAPSULE ORALLY THREE TIMES A DAY TAKING TRAMADOL HCL 50 MG TABLET 1 -2 TABLET ORALLY EVERY 4 -6 HRS PRN PAIN MDD = 6 TAKING ATORVASTATIN CALCIUM 20 MG TABLET 1 TABLET ORALLY ONCE A DAY TAKING TOUJEO SOLOSTAR 300 UNIT/ML SOLUTION PEN-INJECTOR 60 UNITS SUBCUTANEOUS DAILY TAKING TOPAMAX 100 MG TABLET 1 TABLET ORALLY TWICE A DAY TAKING NORCO 5-325 MG TABLET 1 TAB(S) ORALLY EVERY 8 HOURS PRN PAIN MDD=3 TAKING TESSALON PERLES 100 MG CAPSULE 1 CAPSULE NEEDED ORALLY THREE TIMES A DAY PRN COUGH TAKING [id number] MG CAPSULE 1 CAPSULE NEEDED ORALLY EVERY 4 HRS PRN MIGRAINE MDD=2 TAKING SEROQUEL 50 MG TABLET 1 TABLET ORALLY BEFORE BEDTIME TAKING RISPERDAL 0.5 MG TABLET 1 TABLET ORALLY ONCE A DAYIN P.M. TAKING BUSPIRONE HCL 10 MG TABLET 1 TABLET ORALLY DAILY NOT-TAKING DULOXETINE HCL 30 MG CAPSULE DELAYED RELEASE PARTICLES 1 CAPSULE ORALLY DAILY, NOTES: NOT TAKING DUE DO ALLERGY NOT-TAKING HYDROCHLOROTHIAZIDE 12.5 MG CAPSULE 1 CAPSULE ORALLY ONCE A DAY DISCONTINUED BUSPAR 5 MG TABLET 1 TAB ORALLY DAILY DISCONTINUED LANTUS 100 UNIT/ML SOLUTION 60 UNITS SUBCUTANEOUS DAILY UNKNOWN CLOTRIMAZOLE-BETAMETHASONE 1-0.05 % CREAM 1 APPLICATION TO AFFECTED AREA EXTERNALLY TWICE A DAY NEEDED UNKNOWN SYRINGE 1CC SYRINGES 1 SYRINGE INTRAMUSCULARLY ONCE A DAY UNKNOWN BLOOD PRESSURE MONITOR DX: 401.9 HOME BLOOD PRESSURE MONITOR TWICE A DAY MEDICATION LIST REVIEWED AND RECONCILED WITH THE PATIENT PAST MEDICAL HISTORY BIPOLAR DISORDER-MANAGED BY DR. 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, INSULIN REQUIRING HYPOTHYROIDISM HYPERLIPIDEMIA 2B OBESITY, MORBID NONALCOHOLIC FATTY LIVER DISEASE-SEEN DIET FEBRUARY 2006 ULTRASOUND ANEMIA, IRON DEFICIENCY-PATIENT REFUSES ENDOSCOPY EARLY MENOPAUSE AT AGE 42 ALLERGIES PENICILLIN (FOR ALLERGIES USE ONLY): DEADLY: ALLERGY AMOXICILLIN: DEADLY: ALLERGY TEGRETOL: DEADLY: ALLERGY CLARITIN: SOB: ALLERGY NIASPAN: HIVES BACLOFEN: HALLUCINATIONS MOBIC: SEVERE MIGRAINES: SIDE EFFECTS CLINDAMYCIN HCL: ANAPHYLAXIS: ALLERGY CYMBALTA: SEVERE NAUEA/VOMITING, INCREASE INTENSITY OF MIGRAINE: SIDE EFFECTS SOCIAL HISTORY GENERAL: TOBACCO USE ARE YOU A:CURRENT SMOKER HOW MANY CIGARETTES A DAY DO YOU SMOKE?6-10 HOW SOON AFTER YOU WAKE UP DO YOU SMOKE YOUR FIRST CIGARETTE?WITHIN 5 MIN HOW OFTEN DO YOU SMOKE CIGARETTES?EVERY DAY PATIENT COUNSELED ON THE DANGERS OF TOBACCO USE AND URGED TO QUIT: COUNCELLED ON THE IMPORTANCE OF QUITTING ARE YOU INTERESTED IN QUITTING?NOT READY TO QUIT STATES SHE IS NOT QUITTING LEARNING BARRIERS / SPECIAL NEEDS ORIENTED TO PLAN OF CARE: PATIENT, PAIN MANAGEMENT PATIENT, ORIENTED TO PLAN OF CARE: PATIENT, PAIN MANAGEMENT PATIENT. NEW PATIENT PAIN DIARY TODAY'S VISITNOTES FROM 0-10, WHAT LEVEL IS YOUR PAIN TODAY?0 PAIN CLINIC PFS, CLERGY, PUBLIC HEALTH REFERRALS PFS REFERRAL NEEDED?NO CLERGY REFERRAL NEEDED?NO PUBLIC HEALTH REFERRAL NEEDED?NO WAS THE PROVIDER NOTIFIED OF ANY PERTINENT INFO?NO PFS REFERRAL NEEDED?NO CLERGY REFERRAL NEEDED?NO PUBLIC HEALTH REFERRAL NEEDED?NO WAS THE PROVIDER NOTIFIED OF ANY PERTINENT INFO?NO REVIEW OF SYSTEMS CONSTITUTIONAL: ANY CHANGE IN YOUR MEDICAL CONDITION? NO . CHILLS NO . FEVER NO . INFECTION: DO YOU HAVE NEW INFECTIONS? YES - UPPER RESPIRATORY WITH COUGH . DO YOU HAVE HISTORY OF MRSA? NO . MUSCULOSKELETAL: ANY NEW PATTERNS OF PAIN OR NUMBNESS? NO . GASTROENTEROLOGY: ANY NEW CHANGE IN BOWEL CONTROL? NO . GENITOURINARY: ANY NEW CHANGE IN BLADDER CONTROL? NO . IS THERE A CHANCE YOU COULD BE ? NO . HEMATOLOGY/LYMPH: DO YOU TAKE ANY BLOOD THINNERS? (FOR EXAMPLE- COUMADIN, PLAVIX, AGGRENOX, PLATEL, PRADAXA, OR XARELTO) NO . WHEN WAS YOUR LAST DOSE? DATE: TIME: . NEUROLOGY: HAVE YOU FALLEN IN THE PAST 6 MONTHS? YES APPROX 2 MONTHS AGO SLIPPED ON ICE AND APPROX 1 1/2 MONTHS AGO JUST INCREASE IN PAIN . ANY NEW EXTREMITY NUMBNESS OR WEAKNESS? NO . CARDIOLOGY: DO YOU HAVE A PACEMAKER OR DEFIBRILLATOR? NO . CHEST PAIN DENIES CHEST PAIN . RESPIRATORY: HAVE YOU BEEN SICK IN THE PAST WEEK? YES COLD SYMP. X ONE WEEK. ON MUCINEX AND TUSSALON PERLES . FEVER NO . FLU LIKE SYMPTOMS? NO . COUGH YES, CLEAR TO YELLOW SPUTUM . INTEGUMENTARY: DO YOU HAVE ANY RASHES OR OPEN SORES? NO . ALLERGIC/IMMUNO: ARE YOU ALLERGIC TO SHELLFISH OR IV DYE? NO . ANY NEW ALLERGIES? NO . PSYCHIATRIC: DO YOU HAVE THOUGHTS OF HURTING YOURSELF OR SOMEONE ELSE? NO . ARE YOU ABUSED, NEGLECTED, OR IN AN UNSAFE ENVIRONMENT? NO . ENDOCRINOLOGY: ARE YOU DIABETIC? YES . OTHER: DO YOU NEED ANY PRESCRIPTIONS? NO . IF YES, PLEASE LIST: ____ . ANY NEW PROBLEMS WITH YOUR MEDICATIONS? NO . WHEN DID YOU LAST EAT? ____ . WHEN DID YOU LAST DRINK? ____ . WHAT DID YOU LAST DRINK? ____ . NAME OF PERSON DRIVING YOU HOME? ____ . DO YOU HAVE ANY OTHER QUESTIONS OR CONCERNS YES HAVING A LOT OF KNOTS IN SHOULDERS AND NECKS WHICH ARE CAUSING HEADACHES . PSYCHOLOGY: HIGH STRESS LEVEL IN THE FAMILY IMPROVED SINCE LAST VISIT . REVIEWED BY: PROVIDER: SYED SOUZA . VITAL SIGNS WT 180 LBS, HT 64 IN, BMI 30.89 INDEX, BP 153/88 MM HG, HR 84 /MIN, RR 18 /MIN, TEMP 93.7 F, OXYGEN SAT % 95%, NA INITIALS SC 10:51, REVIEWED BY: AD. EXAMINATION GENERAL EXAMINATION: PSYCHALERT , ORIENTED X 3 . NECK:BILATERAL THRYOID ENLARGEMENT. TENDER. LUNGS:LUNG SOUNDS ARE CLEAR. HEART:HEART RATE REGULAR. MUSCULOSKELETAL:MUSCLE STRENGTH TESTING 5/5 BILATERAL UPPER AND LOWER EXTREMITIES.. ABLE TO RISE TO STANDING POSITION. POSTURE STOOPED. GAIT SLOW. , TRIGGER POINTS AND TIGHT FIBROUS BANDS:, ELICITED WITH PALPATION OVER CERVICAL PARASPINOUS MUSCLES AND ACROSS THE TRAPEZIUS BILATERALLY. MARKED DECREASE IN ROM WITH NECK FLEXION, EXTENSION AND ROTATION. 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 TREATMENT MYALGIA TRIGGER POINT 3 + SYED MISHRA 12/18/2016 11:26:36 AM > NECK AND SHOULDERS NOTES: GO TO ER OR URGENT CARE REGARDING UPPER RESPIRATORY INFECTION AND COUGH. CONTINUE CURRENT MEDS. CLINICAL NOTES: ISTOP REGISTRY REVIEWED AND DEMNOSTRATES COMPLLIANCE. BRINGS IN MEDICATIONS WHICH IS APPROPRIATE FOR WHAT WAS DISPENSED. RECENT URINE TOXICOLOGY REVIEWED. NO UNAUTHORIZED MEDICATIONS. NO ILLICIT SUBSTANCES AND PRESCRIBED MEDICATIONS WERE PRESENT. PREVENTIVE MEDICINE PAIN CLINIC TEACHING: PROCEDURE TEACHING PATIENT DECLINED PRINTED INFORMATION ON TPI STATING SHE HAS HAD THEM IN THE PAST AND IS FAMILIAR WITH THEM. PRE-PROCEDURE INSTRUCTIONS REVIEWED WITH PATIENT AND SHE VERBALIZED UNDERSTANDING.. PROCEDURE CODES FA211 ESTABILISHED PATIENT [facility] CHARGE DISPOSITION & COMMUNICATION FOLLOW UP AFTER INJECTION ELECTRONICALLY SIGNED BY SAQIB ALEJO ON 12/18/2016 AT 01:43 PM EST DISCLAIMER : THIS IS A VISIT SUMMARY EXTRACTED FROM THE [employer] CHART. IT IS NOT A COPY OF THE [employer] PROGRESS NOTE. LETHA
== END ==
LOC: M PAIN 10:20
PROVIDERS: ATTEND Nurse Practitioner Family
DX: Z09 Encounter for follow-up examination after completed treatment for conditions other than malignant neoplasm (principal); G89.29 Other chronic pain; M79.7 Fibromyalgia; F31.9 Bipolar disorder, unspecified; J44.9 Chronic obstructive pulmonary disease, unspecified; I10 Essential (primary) hypertension; E11.9 Type 2 diabetes mellitus without complications; Z79.4 Long term (current) use of insulin; E03.9 Hypothyroidism, unspecified; E78.5 Hyperlipidemia, unspecified; F17.200 Nicotine dependence, unspecified, uncomplicated; E66.9 Obesity, unspecified; Z68.30 Body mass index [BMI] 30.0-30.9, adult; K76.0 Fatty (change of) liver, not elsewhere classified; D50.9 Iron deficiency anemia, unspecified; Z88.0 Allergy status to penicillin; Z88.1 Allergy status to other antibiotic agents; Z88.8 Allergy status to other drugs, medicaments and biological substances; Z88.6 Allergy status to analgesic agent; Z79.51 Long term (current) use of inhaled steroids; Z79.84 Long term (current) use of oral hypoglycemic drugs; Z79.82 Long term (current) use of aspirin; Z79.891 Long term (current) use of opiate analgesic; Z79.899 Other long term (current) drug therapy; Z86.59 Personal history of other mental and behavioral disorders

== ENCOUNTER → 2017-01-28 | Outpatient (CLI) | payer OTHER ==
[~2017-01-28] MED LIST changes: +BUPIVACAINE HCL 0.25% 10 ML VIAL As Ordered ONE; +BUPIVACAINE HCL 0.25% 30 ML VIAL As Ordered ONE; +TRIAMCINOLONE ACETONIDE SUSP 40 MG/ML VIAL (J3301) As Ordered ONE
--- NOTE | 2017-02-04 00:13 | ECWPNPC ---
PATIENT NAME: JAMES LORENZO : 1965 GENDER: FEMALE VISIT DATE: 01/28/2017 DISCHARGE DATE: 01/28/17 1620 VISIT LOCKED DATE TIME: PHYSICIAN: HENRY STEVENS RESOURCE: HENRY STEVENS REASON FOR APPOINTMENT 1. TPI HISTORY OF PRESENT ILLNESS HISTORY OF PRESENT ILLNESS: PAIN THE PATIENT DESCRIBES THE PAIN... FALL RISK SCREENING: SCREENING :NO FALLS IN THE PAST YEAR CURRENT MEDICATIONS TAKING BREO ELLIPTA 100-25 MCG/INH AEROSOL POWDER BREATH ACTIVATED 1 PUFF INHALATION ONCE A DAY AT NIGHT, NOTES: 1 MONTH AGO TAKING SEROQUEL 100 MG TABLET 1 TABLET AT BEDTIME ORALLY AT BEDTIME, NOTES: 01/27/17@2300 TAKING WELLBUTRIN SR 100 MG TABLET EXTENDED RELEASE ORALLY DAILY, NOTES: 0700 TAKING SADE ALLERGY 180 MG TABLET 1 TABLET ORALLY ONCE A DAY, NOTES: 01/27/17@2300 TAKING GLIPIZIDE 5 MG TABLET 1/2 TABLET ORALLY ONCE A DAY, NOTES: 01/27/17@0730 TAKING FENOFIBRATE 160 MG TABLET 1 TABLET WITH A MEAL ORALLY ONCE A DAY, NOTES: 01/27/17@2300 TAKING SINGULAIR 10 MG TABLET 1 TABLET IN THE EVENING ORALLY ONCE A DAY, NOTES: 0700 TAKING PRILOSEC 20 MG CAPSULE DELAYED RELEASE 1 CAPSULE ORALLY TWICE DAILY, NOTES: 0700 TAKING RISPERDAL 1 MG TABLET 1 TABLET ORALLY EVERY AM, NOTES: 0700 TAKING METFORMIN HCL 1000 MG TABLET 1 TABLET WITH MEALS ORALLY TWICE A DAY, NOTES: 0700 TAKING ONE TOUCH/ONE TOUCH II STARTER ONE TOUCH STIPS 1 STRIP SUBCUTANEOUSLY TWICE A DAY DX: 250.00 TAKING EVISTA 60 MG TABLET 1 TABLET ORALLY ONCE A DAY, NOTES: 0700 TAKING ASPIRIN 81 MG TABLET CHEWABLE 1 TABLET (TAKING TWICE A DAY) BY MOUTH ONCE A DAY, NOTES: HASNT USED LATELY TAKING RISPERDAL 0.5 MG TABLET 1 TABLET ORALLY AT BEDTIME, NOTES: 01/29/17@2300 TAKING PROPRANOLOL HCL ER 120 MG CAPSULE EXTENDED RELEASE 24 HOUR 1 CAPSULE ORALLY ONCE A DAY, NOTES: 0700 TAKING RASPBERRY KETONES 100 MG CAPSULE 1 DROP ORALLY BID, NOTES: 0700 TAKING TIZANIDINE HCL 4 MG TABLET 1 TAB ORALLY EVERY 8 HOURS MDD 3 TABS, NOTES: 0700 TAKING TRAMADOL HCL 50 MG TABLET 1 -2 TABLET ORALLY EVERY 4 -6 HRS PRN PAIN MDD = 6, NOTES: 0700 TAKING ATORVASTATIN CALCIUM 20 MG TABLET 1 TABLET ORALLY ONCE A DAY, NOTES: 0700 TAKING TOUJEO SOLOSTAR 300 UNIT/ML SOLUTION PEN-INJECTOR 60 UNITS SUBCUTANEOUS DAILY, NOTES: 01/27/17@1200 TAKING TOPAMAX 100 MG TABLET 1 TABLET ORALLY TWICE A DAY, NOTES: 0700 TAKING TESSALON PERLES 100 MG CAPSULE 1 CAPSULE NEEDED ORALLY THREE TIMES A DAY PRN COUGH, NOTES: 1 MONTH AGO TAKING [id number] [id number] MG CAPSULE 1 CAPSULE NEEDED ORALLY EVERY 4 HRS PRN MIGRAINE MDD=2, NOTES: 3DAYS AGO TAKING SEROQUEL 50 MG TABLET 1 TABLET ORALLY BEFORE BEDTIME, NOTES: 01/27/17@2300 TAKING BUSPIRONE HCL 10 MG TABLET 1 TABLET ORALLY DAILY, NOTES: 0700 TAKING NORCO 5-325 MG TABLET 1 TAB(S) ORALLY EVERY 8 HOURS PRN PAIN MDD=3, NOTES: 0700 TAKING GABAPENTIN 400 MG CAPSULE 1 CAPSULE ORALLY THREE TIMES A DAY, NOTES: 0700 TAKING LOSARTAN POTASSIUM 25 MG TABLET 1 TABLET ORALLY ONCE A DAY, NOTES: 0700 NOT-TAKING DULOXETINE HCL 30 MG CAPSULE DELAYED RELEASE PARTICLES 1 CAPSULE ORALLY DAILY, NOTES: NOT TAKING DUE DO ALLERGY NOT-TAKING HYDROCHLOROTHIAZIDE 12.5 MG CAPSULE 1 CAPSULE ORALLY ONCE A DAY DISCONTINUED RISPERDAL 0.5 MG TABLET 1 TABLET ORALLY ONCE A DAYIN P.M. UNKNOWN CLOTRIMAZOLE-BETAMETHASONE 1-0.05 % CREAM 1 APPLICATION TO AFFECTED AREA EXTERNALLY TWICE A DAY NEEDED UNKNOWN SYRINGE 1CC SYRINGES 1 SYRINGE INTRAMUSCULARLY ONCE A DAY UNKNOWN BLOOD PRESSURE MONITOR DX: 401.9 HOME BLOOD PRESSURE MONITOR TWICE A DAY MEDICATION LIST REVIEWED AND RECONCILED WITH THE PATIENT PAST MEDICAL HISTORY BIPOLAR DISORDER-MANAGED BY DR. 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, INSULIN REQUIRING HYPOTHYROIDISM HYPERLIPIDEMIA 2B OBESITY, MORBID NONALCOHOLIC FATTY LIVER DISEASE-SEEN DIET FEBRUARY 2006 ULTRASOUND ANEMIA, IRON DEFICIENCY-PATIENT REFUSES ENDOSCOPY EARLY MENOPAUSE AT AGE 42 ALLERGIES PENICILLIN (FOR ALLERGIES USE ONLY): DEADLY: ALLERGY AMOXICILLIN: DEADLY: ALLERGY TEGRETOL: DEADLY: ALLERGY CLARITIN: SOB: ALLERGY NIASPAN: HIVES BACLOFEN: HALLUCINATIONS MOBIC: SEVERE MIGRAINES: SIDE EFFECTS CLINDAMYCIN HCL: ANAPHYLAXIS: ALLERGY CYMBALTA: SEVERE NAUEA/VOMITING, INCREASE INTENSITY OF MIGRAINE: SIDE EFFECTS SOCIAL HISTORY GENERAL: PAIN CLINIC PFS, CLERGY, PUBLIC HEALTH REFERRALS CLERGY REFERRAL NEEDED?NO WAS THE PROVIDER NOTIFIED OF ANY PERTINENT INFO?NO PFS REFERRAL NEEDED?NO PUBLIC HEALTH REFERRAL NEEDED?NO PATIENT: ____. REVIEW OF SYSTEMS CONSTITUTIONAL: ANY CHANGE IN YOUR MEDICAL CONDITION? NO . CHILLS NO . FEVER NO . INFECTION: DO YOU HAVE NEW INFECTIONS? NO . DO YOU HAVE HISTORY OF MRSA? NO . MUSCULOSKELETAL: ANY NEW PATTERNS OF PAIN OR NUMBNESS? NO . GASTROENTEROLOGY: ANY NEW CHANGE IN BOWEL CONTROL? NO . GENITOURINARY: ANY NEW CHANGE IN BLADDER CONTROL? NO . IS THERE A CHANCE YOU COULD BE ? NO . HEMATOLOGY/LYMPH: DO YOU TAKE ANY BLOOD THINNERS? (FOR EXAMPLE- COUMADIN, PLAVIX, AGGRENOX, PLATEL, PRADAXA, OR XARELTO) NO . WHEN WAS YOUR LAST DOSE? DATE: TIME: . NEUROLOGY: HAVE YOU FALLEN IN THE PAST 6 MONTHS? NO . ANY NEW EXTREMITY NUMBNESS OR WEAKNESS? NO . CARDIOLOGY: DO YOU HAVE A PACEMAKER OR DEFIBRILLATOR? NO . RESPIRATORY: HAVE YOU BEEN SICK IN THE PAST WEEK? NO . FEVER NO . FLU LIKE SYMPTOMS? NO . COUGH NO . INTEGUMENTARY: DO YOU HAVE ANY RASHES OR OPEN SORES? NO . ALLERGIC/IMMUNO: ARE YOU ALLERGIC TO SHELLFISH OR IV DYE? NO . ANY NEW ALLERGIES? NO . PSYCHIATRIC: DO YOU HAVE THOUGHTS OF HURTING YOURSELF OR SOMEONE ELSE? NO . ARE YOU ABUSED, NEGLECTED, OR IN AN UNSAFE ENVIRONMENT? NO . ENDOCRINOLOGY: ARE YOU DIABETIC? YES . OTHER: DO YOU NEED ANY PRESCRIPTIONS? YES . IF YES, PLEASE LIST: ____GABAPENTIN . ANY NEW PROBLEMS WITH YOUR MEDICATIONS? NO . WHEN DID YOU LAST EAT? ____0700 . WHEN DID YOU LAST DRINK? ____1130 . WHAT DID YOU LAST DRINK? ____ . NAME OF PERSON DRIVING YOU HOME? ____[employer] . DO YOU HAVE ANY OTHER QUESTIONS OR CONCERNS NO . REVIEWED BY: PROVIDER: . VITAL SIGNS WT 180 LBS, HT 64 IN, BMI 30.89 INDEX, BP 167/87 MM HG, HR 83 /MIN, RR 18 /MIN, TEMP 95.9 F, OXYGEN SAT % 100%, NA INITIALS SC 14:15, REVIEWED BY: VD. ASSESSMENTS MYALGIA - M79.1 (PRIMARY) PROCEDURES PN TRIGGER POINT INJECTION WITH STEROIDS PRE PROCEDURE DIAGNOSIS 1. MYALGIA 2. PAIN AT BILATERAL NECK AREA AND BILATERAL SHOULDER AREA POST PROCEDURE DIAGNOSIS 1. MYALGIA 2. 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 I EVALUATE THE PATIENT AND REVIEWED THE CHART. THERE IS EVIDENCE OF BANDS OF TISSUE WITH RESTRICTION OF MOVEMENT AND PRESENCE OF TRIGGER POINT AT THE AFFECTED AREA. I WENT OVER THE RISKS, ALTERNATIVES, AND BENEFITS ASSOCIATED WITH THIS PROCEDURE. THE PATIENT WOULD LIKE TO PROCEED AND GIVE CONSENT TO PERFORMED THE PROCEDURE. THE PATIENT DENIES UNEXPLAINABLE WEIGHT LOSS, FEVER, CHILLS, OR NEW CHANGES IN URINARY OR BOWEL CONTROL DESCRIPTION OF PROCEDURE THE PATIENT WAS BROUGHT TO THE PROCEDURE ROOM AND PLACED IN THE SITTING POSITION. THE AREA WAS CLEANED WITH ALCOHOL. THE PROCEDURE WAS DONE USING ASEPTIC STERILE TECHNIQUE. I CHECKED LATERALITY AND THE LEVEL WHERE THE PROCEDURE WAS GOING TO BE PERFORMED WITH THE PATIENT AND THE SUPPORTING STAFF AT THE MOMENT OF THE TIME OUT IN THE PROCEDURE ROOM. USING A 25-GAUGE NEEDLE, TRIGGER POINTS WERE INJECTED AT THE RIGHT AND LEFT NECK AREA AND RIGHT AND LEFT SHOULDER AREA WITH A TOTAL OF 40 ML OF BUPIVACAINE 0.25% AND KENALOG 40 MG. THERE WAS NO EVIDENCE OF BLOOD, PARESTHESIA OR CEREBROSPINAL FLUID DURING THE PROCEDURE. THE PATIENT WAS SENT TO THE RECOVERY ROOM. THE PATIENT WAS MOVING THE EXTREMITIES AND DOING WELL. THERE WAS NO COMPLICATION DURING THE PROCEDURE POST PROCEDURE NOTE THE PATIENT WILL BE SEEN IN A FOLLOW UP IN THE NEXT FEW WEEKS. INSTRUCTIONS WERE GIVEN, QUESTIONS WERE ANSWERED, AND THE PATIENT EXPRESSED UNDERSTANDING AND AGREES WITH THE PLAN. I, LEORA GARCIA, DOCUMENTED THE ABOVE INFORMATION ACTING A SCRIBE FOR DR. STEVENS. I HAVE REVIEWED THE ABOVE DOCUMENT, WRITTEN BY LEORA SCHMIDT AND I VERIFY THAT IT IS ACCURATE. PROCEDURE CODES 97036 INJECT TRIGGER POINTS 3/> DISPOSITION & COMMUNICATION FOLLOW UP 3 WEEKS ELECTRONICALLY SIGNED BY HENRY STEVENS MD ON 02/03/2017 AT 11:20 AM EDT DISCLAIMER : THIS IS A VISIT SUMMARY EXTRACTED FROM THE [employer] CHART. IT IS NOT A COPY OF THE [employer] PROGRESS NOTE. LETHA
== END ==
LOC: M PAIN 14:20
PROVIDERS: ATTEND Anesthesiology
DX: G89.29 Other chronic pain (principal); M79.1 Myalgia; M54.2 Cervicalgia; M25.512 Pain in left shoulder; M25.511 Pain in right shoulder; Z79.891 Long term (current) use of opiate analgesic; Z79.899 Other long term (current) drug therapy; Z79.84 Long term (current) use of oral hypoglycemic drugs; Z79.82 Long term (current) use of aspirin; I10 Essential (primary) hypertension; J44.9 Chronic obstructive pulmonary disease, unspecified; M79.7 Fibromyalgia; E11.9 Type 2 diabetes mellitus without complications; E03.9 Hypothyroidism, unspecified; E78.5 Hyperlipidemia, unspecified; Z88.0 Allergy status to penicillin; Z88.1 Allergy status to other antibiotic agents; Z88.8 Allergy status to other drugs, medicaments and biological substances
CPT/HCPCS: 20553; J3301

== ENCOUNTER → 2017-02-11 | Outpatient (CLI) | payer OTHER ==
[~2017-02-11] MED LIST changes: -BUPIVACAINE HCL 0.25% 10 ML VIAL As Ordered ONE; -BUPIVACAINE HCL 0.25% 30 ML VIAL As Ordered ONE; -TRIAMCINOLONE ACETONIDE SUSP 40 MG/ML VIAL (J3301) As Ordered ONE
--- NOTE | 2017-03-02 01:31 | ECWPNPC ---
PATIENT NAME: JAMES LORENZO : 1965 GENDER: FEMALE VISIT DATE: 02/11/2017 DISCHARGE DATE: 02/11/17 1109 VISIT LOCKED DATE TIME: PHYSICIAN: SYED AZUL RESOURCE: SYED AZUL REASON FOR APPOINTMENT 1. POST TPI HISTORY OF PRESENT ILLNESS HISTORY OF PRESENT ILLNESS: PAIN THE PATIENT DESCRIBES THE PAIN... FALL RISK SCREENING: SCREENING :NO FALLS IN THE PAST YEAR TODAY'S VISIT: NOTES: IS S/P TRIGGER POINT INJECTIONS TO NECK AND SHOULDERS WITH STEROIDS ON 01/28/17 WITH 25% REDUCTION IN PAIN AND 100% REDUCTION IS HEADACHES. OVER THE LAST FEW WEEKS HAS BEEN HAVING INCRESED PAIN IN LOW BACK WITH RADIATION DOWN BACK OF RIGHT LEG TO FOOT. . CURRENT MEDICATIONS TAKING BREO ELLIPTA 100-25 MCG/INH AEROSOL POWDER BREATH ACTIVATED 1 PUFF INHALATION ONCE A DAY AT NIGHT TAKING SEROQUEL 100 MG TABLET 1 TABLET AT BEDTIME ORALLY AT BEDTIME TAKING WELLBUTRIN SR 100 MG TABLET EXTENDED RELEASE ORALLY DAILY TAKING SADE ALLERGY 180 MG TABLET 1 TABLET ORALLY ONCE A DAY TAKING GLIPIZIDE 5 MG TABLET 1/2 TABLET ORALLY ONCE A DAY TAKING FENOFIBRATE 160 MG TABLET 1 TABLET WITH A MEAL ORALLY ONCE A DAY TAKING SINGULAIR 10 MG TABLET 1 TABLET IN THE EVENING ORALLY ONCE A DAY TAKING PRILOSEC 20 MG CAPSULE DELAYED RELEASE 1 CAPSULE ORALLY TWICE DAILY TAKING RISPERDAL 1 MG TABLET 1 TABLET ORALLY EVERY AM TAKING METFORMIN HCL 1000 MG TABLET 1 TABLET WITH MEALS ORALLY TWICE A DAY TAKING ONE TOUCH/ONE TOUCH II STARTER ONE TOUCH STIPS 1 STRIP SUBCUTANEOUSLY TWICE A DAY DX: 250.00 TAKING EVISTA 60 MG TABLET 1 TABLET ORALLY ONCE A DAY TAKING ASPIRIN 81 MG TABLET CHEWABLE 1 TABLET (TAKING TWICE A DAY) BY MOUTH ONCE A DAY TAKING RISPERDAL 0.5 MG TABLET 1 TABLET ORALLY AT BEDTIME TAKING PROPRANOLOL HCL ER 120 MG CAPSULE EXTENDED RELEASE 24 HOUR 1 CAPSULE ORALLY ONCE A DAY TAKING RASPBERRY KETONES 100 MG CAPSULE 1 DROP ORALLY BID TAKING TIZANIDINE HCL 4 MG TABLET 1 TAB ORALLY EVERY 8 HOURS MDD 3 TABS TAKING TRAMADOL HCL 50 MG TABLET 1 -2 TABLET ORALLY EVERY 4 -6 HRS PRN PAIN MDD = 6 TAKING ATORVASTATIN CALCIUM 20 MG TABLET 1 TABLET ORALLY ONCE A DAY TAKING TOUJEO SOLOSTAR 300 UNIT/ML SOLUTION PEN-INJECTOR 60 UNITS SUBCUTANEOUS DAILY TAKING TOPAMAX 100 MG TABLET 1 TABLET ORALLY TWICE A DAY TAKING TESSALON PERLES 100 MG CAPSULE 1 CAPSULE NEEDED ORALLY THREE TIMES A DAY PRN COUGH TAKING [id number] [id number] MG CAPSULE 1 CAPSULE NEEDED ORALLY EVERY 4 HRS PRN MIGRAINE MDD=2 TAKING BUSPIRONE HCL 10 MG TABLET 1 TABLET ORALLY DAILY TAKING GABAPENTIN 400 MG CAPSULE 1 CAPSULE ORALLY THREE TIMES A DAY TAKING LOSARTAN POTASSIUM 25 MG TABLET 1 TABLET ORALLY ONCE A DAY TAKING NORCO 5-325 MG TABLET 1 TAB(S) ORALLY EVERY 8 HOURS PRN PAIN MDD=3 NOT-TAKING SEROQUEL 50 MG TABLET 1 TABLET ORALLY BEFORE BEDTIME NOT-TAKING DULOXETINE HCL 30 MG CAPSULE DELAYED RELEASE PARTICLES 1 CAPSULE ORALLY DAILY, NOTES: NOT TAKING DUE DO ALLERGY NOT-TAKING HYDROCHLOROTHIAZIDE 12.5 MG CAPSULE 1 CAPSULE ORALLY ONCE A DAY UNKNOWN CLOTRIMAZOLE-BETAMETHASONE 1-0.05 % CREAM 1 APPLICATION TO AFFECTED AREA EXTERNALLY TWICE A DAY NEEDED UNKNOWN SYRINGE 1CC SYRINGES 1 SYRINGE INTRAMUSCULARLY ONCE A DAY UNKNOWN BLOOD PRESSURE MONITOR DX: 401.9 HOME BLOOD PRESSURE MONITOR TWICE A DAY MEDICATION LIST REVIEWED AND RECONCILED WITH THE PATIENT PAST MEDICAL HISTORY BIPOLAR DISORDER-MANAGED BY DR. 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, INSULIN REQUIRING HYPOTHYROIDISM HYPERLIPIDEMIA 2B OBESITY, MORBID NONALCOHOLIC FATTY LIVER DISEASE-SEEN DIET FEBRUARY 2006 ULTRASOUND ANEMIA, IRON DEFICIENCY-PATIENT REFUSES ENDOSCOPY EARLY MENOPAUSE AT AGE 42 ALLERGIES PENICILLIN (FOR ALLERGIES USE ONLY): DEADLY: ALLERGY AMOXICILLIN: DEADLY: ALLERGY TEGRETOL: DEADLY: ALLERGY CLARITIN: SOB: ALLERGY NIASPAN: HIVES BACLOFEN: HALLUCINATIONS MOBIC: SEVERE MIGRAINES: SIDE EFFECTS CLINDAMYCIN HCL: ANAPHYLAXIS: ALLERGY CYMBALTA: SEVERE NAUEA/VOMITING, INCREASE INTENSITY OF MIGRAINE: SIDE EFFECTS SOCIAL HISTORY GENERAL: PAIN CLINIC PFS, CLERGY, PUBLIC HEALTH REFERRALS CLERGY REFERRAL NEEDED?NO WAS THE PROVIDER NOTIFIED OF ANY PERTINENT INFO?NO PFS REFERRAL NEEDED?NO PUBLIC HEALTH REFERRAL NEEDED?NO PATIENT: ____. REVIEW OF SYSTEMS CONSTITUTIONAL: ANY CHANGE IN YOUR MEDICAL CONDITION? NO . CHILLS NO . FEVER NO . INFECTION: DO YOU HAVE NEW INFECTIONS? NO . DO YOU HAVE HISTORY OF MRSA? NO . MUSCULOSKELETAL: ANY NEW PATTERNS OF PAIN OR NUMBNESS? YES, PAIN IN BOTH HIPS AND GOING INTO LEGS AND FEET . GASTROENTEROLOGY: ANY NEW CHANGE IN BOWEL CONTROL? NO . GENITOURINARY: ANY NEW CHANGE IN BLADDER CONTROL? NO . IS THERE A CHANCE YOU COULD BE ? NO . HEMATOLOGY/LYMPH: DO YOU TAKE ANY BLOOD THINNERS? (FOR EXAMPLE- COUMADIN, PLAVIX, AGGRENOX, PLATEL, PRADAXA, OR XARELTO) NO . WHEN WAS YOUR LAST DOSE? DATE: TIME: . NEUROLOGY: HAVE YOU FALLEN IN THE PAST 6 MONTHS? YES . ANY NEW EXTREMITY NUMBNESS OR WEAKNESS? NO . CARDIOLOGY: DO YOU HAVE A PACEMAKER OR DEFIBRILLATOR? NO . RESPIRATORY: HAVE YOU BEEN SICK IN THE PAST WEEK? NO, BUT RECENT BRONCHITIS . FEVER NO . FLU LIKE SYMPTOMS? NO . COUGH NO . INTEGUMENTARY: DO YOU HAVE ANY RASHES OR OPEN SORES? NO . ALLERGIC/IMMUNO: ARE YOU ALLERGIC TO SHELLFISH OR IV DYE? NO . ANY NEW ALLERGIES? NO . PSYCHIATRIC: DO YOU HAVE THOUGHTS OF HURTING YOURSELF OR SOMEONE ELSE? NO . ARE YOU ABUSED, NEGLECTED, OR IN AN UNSAFE ENVIRONMENT? NO . ENDOCRINOLOGY: ARE YOU DIABETIC? YES - LAST BS 99. HAD BLOOD SUGAR CRASH WITH LAST PROCEDURE . OTHER: DO YOU NEED ANY PRESCRIPTIONS? NO . IF YES, PLEASE LIST: ____ . ANY NEW PROBLEMS WITH YOUR MEDICATIONS? NO . WHEN DID YOU LAST EAT? ____ . WHEN DID YOU LAST DRINK? ____ . WHAT DID YOU LAST DRINK? ____ . NAME OF PERSON DRIVING YOU HOME? ____ . DO YOU HAVE ANY OTHER QUESTIONS OR CONCERNS NO . HEENT: PATIENT COMPLAINING OF SEASONAL ALLERGIES . REVIEWED BY: PROVIDER: SYED SOUZA . VITAL SIGNS WT 180 LBS, HT 64 IN, BMI 30.89 INDEX, BP 143/77 MM HG, HR 85 /MIN, RR 18 /MIN, TEMP 98.2 F, OXYGEN SAT % 96%, NA INITIALS SC 10:27, REVIEWED BY: CS. EXAMINATION GENERAL EXAMINATION: PSYCHALERT , ORIENTED X 3 . NECK:BILATERAL THRYOID ENLARGEMENT. TENDER. LUNGS:LUNG SOUNDS ARE CLEAR. HEART:HEART RATE REGULAR. MUSCULOSKELETAL:MUSCLE STRENGTH TESTING 5/5 BILATERAL UPPER AND LOWER EXTREMITIES.. ABLE TO RISE TO STANDING POSITION. POSTURE STOOPED. GAIT SLOW. , TRIGGER POINTS AND TIGHT FIBROUS BANDS:, ELICITED WITH PALPATION OVER CERVICAL PARASPINOUS MUSCLES AND ACROSS THE TRAPEZIUS BILATERALLY. POINT TENDERNESS OVER RIGHT SACRAL ILIAC JOINT. POSITIVE WILL SIGN. . 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 SACROILIITIS - M46.1 LUMBAR DISC DISPLACEMENT WITHOUT MYELOPATHY - M51.26 TREATMENT MYALGIA INJECTION ANESTHETIC SACROILIAC JOINTSYED AZUL 02/11/2017 10:57:13 AM > RIGHT SIDE NOTES: HOLD DIABETES MEDS AM OF PROCEDURE - DO BLOOD SUGAR AT HOME AM OF PROCEDURE. PROCEDURE CODES FA211 ESTABILISHED PATIENT [facility] CHARGE DISPOSITION & COMMUNICATION FOLLOW UP AFTER INJECTION (REASON: CHECK AUTH FOR RIGHT SIJ/ MUST SCHEDULE FOR EARLY AM) ELECTRONICALLY SIGNED BY SAQIB ALEJO ON 03/01/2017 AT 05:42 PM EDT DISCLAIMER : THIS IS A VISIT SUMMARY EXTRACTED FROM THE [email or web address] CHART. IT IS NOT A COPY OF THE [email or web address] PROGRESS NOTE. MTDD
== END ==
LOC: M PAIN 11:00
PROVIDERS: ATTEND Nurse Practitioner Family
DX: M79.1 Myalgia (principal); M46.1 Sacroiliitis, not elsewhere classified; M51.26 Other intervertebral disc displacement, lumbar region; E11.9 Type 2 diabetes mellitus without complications; J44.9 Chronic obstructive pulmonary disease, unspecified; F31.9 Bipolar disorder, unspecified; I10 Essential (primary) hypertension; E03.9 Hypothyroidism, unspecified; Z79.891 Long term (current) use of opiate analgesic; Z79.899 Other long term (current) drug therapy; Z79.82 Long term (current) use of aspirin; Z79.84 Long term (current) use of oral hypoglycemic drugs; Z88.0 Allergy status to penicillin; Z88.8 Allergy status to other drugs, medicaments and biological substances

== ENCOUNTER → 2017-02-26 | Outpatient (CLI) | payer OTHER ==
[~2017-02-26] MED LIST changes: +BUPIVACAINE HCL 0.25% 30 ML VIAL As Ordered ONE; +ISOVUE-M 300 61% 15ML VIAL (Q9967) As Ordered ONE; +LIDOCAINE 1% SDV INJ 30 ML VIAL As Ordered ONE; +TRIAMCINOLONE ACETONIDE SUSP 40 MG/ML VIAL (J3301) As Ordered ONE
--- NOTE | 2017-02-26 11:50 | REP ---
RIGHT SI JOINT SERIES: Limited two views. HISTORY: Injection procedure for pain. 18 seconds of fluoroscopy time is reported. FINDINGS: A sequence of two fluoroscopically obtained intraprocedural spot radiographs of the right SI joint document needle positions associated with right SI joint injection procedure.. Signed by Adán Zuleta MD 02/26/2017 12:57 P
--- NOTE | 2017-03-06 23:39 | ECWPNPC ---
PATIENT NAME: JAMES LORENZO : 1965 GENDER: FEMALE VISIT DATE: 02/26/2017 DISCHARGE DATE: 02/26/17 1037 VISIT LOCKED DATE TIME: PHYSICIAN: HENRY STEVENS RESOURCE: HENRY STEVENS REASON FOR APPOINTMENT 1. SIJ HISTORY OF PRESENT ILLNESS HISTORY OF PRESENT ILLNESS: PAIN THE PATIENT DESCRIBES THE PAIN... FALL RISK SCREENING: SCREENING :NO FALLS IN THE PAST YEAR CURRENT MEDICATIONS TAKING BREO ELLIPTA 100-25 MCG/INH AEROSOL POWDER BREATH ACTIVATED 1 PUFF INHALATION ONCE A DAY AT NIGHT PRN, NOTES: NONE RECENT TAKING SEROQUEL 100 MG TABLET 1 TABLET AT BEDTIME ORALLY AT BEDTIME, NOTES: 02/25/17 2300 TAKING WELLBUTRIN SR 100 MG TABLET EXTENDED RELEASE ORALLY DAILY, NOTES: 02/25/17699 TAKING SADE ALLERGY 180 MG TABLET 1 TABLET ORALLY ONCE A DAY, NOTES: 02/25/171729 TAKING GLIPIZIDE 5 MG TABLET 1/2 TABLET ORALLY ONCE A DAY, NOTES: 02/25/17699 TAKING FENOFIBRATE 160 MG TABLET 1 TABLET WITH A MEAL ORALLY ONCE A DAY, NOTES: 02/25/171899 TAKING SINGULAIR 10 MG TABLET 1 TAB ORALLY ONCE A DAY, NOTES: 02/25/17699 TAKING PRILOSEC 40 MG CAPSULE DELAYED RELEASE 1 CAPSULE ORALLY ONCE DAILY, NOTES: 02/25/17699 TAKING RISPERDAL 1 MG TABLET 1 TABLET ORALLY EVERY AM, NOTES: 02/25/17699 TAKING METFORMIN HCL 1000 MG TABLET 1 TABLET WITH MEALS ORALLY TWICE A DAY, NOTES: 02/25/171899 TAKING ONE TOUCH/ONE TOUCH II STARTER ONE TOUCH STIPS 1 STRIP SUBCUTANEOUSLY TWICE A DAY DX: 250.00 TAKING EVISTA 60 MG TABLET 1 TABLET ORALLY ONCE A DAY, NOTES: 02/25/17699 TAKING ASPIRIN 81 MG TABLET CHEWABLE 1 TABLET (TAKING TWICE A DAY) BY MOUTH ONCE A DAY, NOTES: 2 WEEKS AGO TAKING RISPERDAL 0.5 MG TABLET 1 TABLET ORALLY AT BEDTIME, NOTES: 02/25/171899 TAKING PROPRANOLOL HCL ER 120 MG CAPSULE EXTENDED RELEASE 24 HOUR 1 CAPSULE ORALLY ONCE A DAY, NOTES: 02/25/17699 TAKING RASPBERRY KETONES 100 MG CAPSULE 1 DROP ORALLY BID, NOTES: 02/25/171899 TAKING TIZANIDINE HCL 4 MG TABLET 1 TAB ORALLY EVERY 8 HOURS MDD 3 TABS, NOTES: 02/25/17 2100 TAKING ATORVASTATIN CALCIUM 20 MG TABLET 1 TABLET ORALLY ONCE A DAY, NOTES: 02/25/17 0700 TAKING TOUJEO SOLOSTAR 300 UNIT/ML SOLUTION PEN-INJECTOR 60 UNITS SUBCUTANEOUS DAILY, NOTES: 02/25/17 1500 TAKING TOPAMAX 100 MG TABLET 1 TABLET ORALLY TWICE A DAY, NOTES: 02/25/171899 TAKING TESSALON PERLES 100 MG CAPSULE 1 CAPSULE NEEDED ORALLY THREE TIMES A DAY PRN COUGH, NOTES: NONE RECENT TAKING [id number]-COD [id number] MG CAPSULE 1 CAPSULE NEEDED ORALLY EVERY 4 HRS PRN MIGRAINE MDD=2, NOTES: 2 DAYS AGO TAKING BUSPIRONE HCL 10 MG TABLET 1 TABLET ORALLY DAILY, NOTES: 02/25/17 07 TAKING GABAPENTIN 400 MG CAPSULE 1 CAPSULE ORALLY THREE TIMES A DAY, NOTES: 02/25/171899 TAKING LOSARTAN POTASSIUM 25 MG TABLET 1/2 TABLET ORALLY ONCE A DAY, NOTES: 07 TAKING NORCO 5-325 MG TABLET 1 TAB(S) ORALLY EVERY 8 HOURS PRN PAIN MDD=3, NOTES: 02/25/171999 TAKING TRAMADOL HCL 50 MG TABLET 1 -2 TABLET ORALLY EVERY 4 -6 HRS PRN PAIN MDD = 6, NOTES: 02/25/171999 NOT-TAKING SEROQUEL 50 MG TABLET 1 TABLET ORALLY BEFORE BEDTIME NOT-TAKING DULOXETINE HCL 30 MG CAPSULE DELAYED RELEASE PARTICLES 1 CAPSULE ORALLY DAILY, NOTES: NOT TAKING DUE DO ALLERGY NOT-TAKING HYDROCHLOROTHIAZIDE 12.5 MG CAPSULE 1 CAPSULE ORALLY ONCE A DAY UNKNOWN CLOTRIMAZOLE-BETAMETHASONE 1-0.05 % CREAM 1 APPLICATION TO AFFECTED AREA EXTERNALLY TWICE A DAY NEEDED UNKNOWN SYRINGE 1CC SYRINGES 1 SYRINGE INTRAMUSCULARLY ONCE A DAY UNKNOWN BLOOD PRESSURE MONITOR DX: 401.9 HOME BLOOD PRESSURE MONITOR TWICE A DAY MEDICATION LIST REVIEWED AND RECONCILED WITH THE PATIENT PAST MEDICAL HISTORY BIPOLAR DISORDER-MANAGED BY DR. 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, INSULIN REQUIRING HYPOTHYROIDISM HYPERLIPIDEMIA 2B OBESITY, MORBID NONALCOHOLIC FATTY LIVER DISEASE-SEEN DIET FEBRUARY 2006 ULTRASOUND ANEMIA, IRON DEFICIENCY-PATIENT REFUSES ENDOSCOPY EARLY MENOPAUSE AT AGE 42 ALLERGIES PENICILLIN (FOR ALLERGIES USE ONLY): DEADLY: ALLERGY AMOXICILLIN: DEADLY: ALLERGY TEGRETOL: DEADLY: ALLERGY CLARITIN: SOB: ALLERGY NIASPAN: HIVES BACLOFEN: HALLUCINATIONS MOBIC: SEVERE MIGRAINES: SIDE EFFECTS CLINDAMYCIN HCL: ANAPHYLAXIS: ALLERGY CYMBALTA: SEVERE NAUEA/VOMITING, INCREASE INTENSITY OF MIGRAINE: SIDE EFFECTS SOCIAL HISTORY GENERAL: TOBACCO USE ARE YOU A:CURRENT SMOKER HOW MANY CIGARETTES A DAY DO YOU SMOKE?11-20 HOW SOON AFTER YOU WAKE UP DO YOU SMOKE YOUR FIRST CIGARETTE?WITHIN 5 MIN HOW OFTEN DO YOU SMOKE CIGARETTES?EVERY DAY PATIENT COUNSELED ON THE DANGERS OF TOBACCO USE AND URGED TO QUIT:02/26/2017 ARE YOU INTERESTED IN QUITTING?NOT READY TO QUIT COUNSELED THE PATIENT ON SMOKING EFFECTS, EDUCATION [id number]/12/2017 PAIN CLINIC PFS, CLERGY, PUBLIC HEALTH REFERRALS CLERGY REFERRAL NEEDED?NO WAS THE PROVIDER NOTIFIED OF ANY PERTINENT INFO?NO PFS REFERRAL NEEDED?NO PUBLIC HEALTH REFERRAL NEEDED?NO PATIENT: ____. REVIEW OF SYSTEMS CONSTITUTIONAL: ANY CHANGE IN YOUR MEDICAL CONDITION? NO . CHILLS NO . FEVER NO . INFECTION: DO YOU HAVE NEW INFECTIONS? NO . DO YOU HAVE HISTORY OF MRSA? NO . MUSCULOSKELETAL: ANY NEW PATTERNS OF PAIN OR NUMBNESS? YES, PAIN RADIATING DOWN HIP--RIGHT > LEFT . GASTROENTEROLOGY: ANY NEW CHANGE IN BOWEL CONTROL? NO . GENITOURINARY: ANY NEW CHANGE IN BLADDER CONTROL? NO . IS THERE A CHANCE YOU COULD BE ? NO . HEMATOLOGY/LYMPH: DO YOU TAKE ANY BLOOD THINNERS? (FOR EXAMPLE- COUMADIN, PLAVIX, AGGRENOX, PLATEL, PRADAXA, OR XARELTO) NO . WHEN WAS YOUR LAST DOSE? DATE: TIME: . NEUROLOGY: HAVE YOU FALLEN IN THE PAST 6 MONTHS? YES, SEVERAL MONTHS AGO TRIPPED ON SHOELACE . ANY NEW EXTREMITY NUMBNESS OR WEAKNESS? NO . CARDIOLOGY: DO YOU HAVE A PACEMAKER OR DEFIBRILLATOR? NO . RESPIRATORY: HAVE YOU BEEN SICK IN THE PAST WEEK? NO . FEVER NO . FLU LIKE SYMPTOMS? NO . COUGH NO . INTEGUMENTARY: DO YOU HAVE ANY RASHES OR OPEN SORES? NO . ALLERGIC/IMMUNO: ARE YOU ALLERGIC TO SHELLFISH OR IV DYE? NO . ANY NEW ALLERGIES? NO . PSYCHIATRIC: DO YOU HAVE THOUGHTS OF HURTING YOURSELF OR SOMEONE ELSE? NO . ARE YOU ABUSED, NEGLECTED, OR IN AN UNSAFE ENVIRONMENT? NO . ENDOCRINOLOGY: ARE YOU DIABETIC? YES, FSBS 136 @ 0730 . OTHER: DO YOU NEED ANY PRESCRIPTIONS? NO . IF YES, PLEASE LIST: ____ . ANY NEW PROBLEMS WITH YOUR MEDICATIONS? NO . WHEN DID YOU LAST EAT? 02/25/17 2300 . WHEN DID YOU LAST DRINK? 02/26/17 0600 . WHAT DID YOU LAST DRINK? WATER . NAME OF PERSON DRIVING YOU HOME? MEDICAID FIRST ASSISTANT . DO YOU HAVE ANY OTHER QUESTIONS OR CONCERNS NO . REVIEWED BY: PROVIDER: . VITAL SIGNS WT 189 LBS, HT 64 IN, BMI 32.44 INDEX, BP 164/90 MM HG, HR 92 /MIN, RR 16 /MIN, TEMP 98.9 F, OXYGEN SAT % 97, BLOOD GLUCOSE LEVEL 136@0730, REVIEWED BY: AD. ASSESSMENTS SACROILIITIS, NOT ELSEWHERE CLASSIFIED - M46.1 (PRIMARY) PROCEDURES PN SI PRE PROCEDURE DIAGNOSIS SACROILIITIS, SACROILIAC JOINT DYSFUNCTION POST PROCEDURE DIAGNOSIS SACROILIITIS, SACROILIAC JOINT DYSFUNCTION PROCEDURE RIGHT SACROILIAC JOINT BLOCK SURGEON DR. HENRY STEVENS SOFTWARE TECHNICIAN NONE ANESTHESIA LOCAL PRE PROCEDURE NOTE PATIENT WITH HISTORY OF CHRONIC LOW BACK PAIN. I EVALUATED THE PATIENT AND REVIEWED THE CHART. I WENT OVER THE RISKS, ALTERNATIVES, AND BENEFITS ASSOCIATED WITH THIS PROCEDURE. THE PATIENT WOULD LIKE TO PROCEED AND GAVE CONSENT TO PERFORM THE PROCEDURE. THE PATIENT DENIES UNEXPLAINABLE WEIGHT LOSS, FEVER, CHILLS, OR NEW CHANGES IN URINARY OR BOWEL CONTROL DESCRIPTION OF PROCEDURE THE PATIENT WAS BROUGHT TO THE PROCEDURE ROOM AND PLACED IN THE PRONE POSITION. THE LUMBOSACRAL AREA WAS CLEANED WITH CHLORAPREP SOLUTION AND DRAPED ASEPTICALLY. THE PROCEDURE WAS DONE UNDER STERILE CONDITIONS. I CHECKED LATERALITY AND THE LEVEL WHERE THE PROCEDURE WAS GOING TO BE PERFORMED WITH THE PATIENT AND THE SUPPORTING STAFF AT THE MOMENT OF THE TIME OUT IN THE PROCEDURE ROOM. UNDER FLUOROSCOPIC GUIDANCE, TARGET POINT WAS SELECTED AT THE LOWER BORDER OF THE RIGHT SACROILIAC JOINT. TARGET POINT WAS SELECTED AFTER MEDIAL ROTATION AND TILT OF THE MAGNIFIER OF THE C-ARM. LIDOCAINE WAS USED TO NUMB THE SKIN AND SUBCUTANEOUS TISSUE BELOW IT. A SPINAL NEEDLE, 22-GAUGE, WAS ADVANCED UNDER FLUOROSCOPIC GUIDANCE AND FOLLOWING PATIENT FEEDBACK UNTIL THE TARGET AREA WAS TOUCHED. THE POSITION OF THE NEEDLE WAS VERIFIED WITH AP AND LATERAL VIEWS. AFTER PROPER POSITION OF THE NEEDLE WAS ACHIEVED, ISOVUE M DYE 30%, 0.25 ML, WAS INJECTED SHOWING SPREAD OF THE DYE. THEN, A SOLUTION OF 20 MG OF KENALOG WAS INJECTED IN RIGHT JOINT WITH 3 ML OF BUPIVACAINE 0.125%. THERE WAS NO EVIDENCE OF BLOOD, PARESTHESIA OR CEREBROSPINAL FLUID DURING THE PROCEDURE. THE PATIENT WAS SENT TO THE RECOVERY ROOM. THE PATIENT WAS MOVING THE EXTREMITIES AND DOING WELL. THERE WAS NO COMPLICATION DURING THE PROCEDURE. FLUOROSCOPY TIME WAS 18 SECONDS POST PROCEDURE NOTE THE PATIENT WILL BE SEEN IN A FOLLOW UP IN THE NEXT FEW WEEKS. INSTRUCTIONS WERE GIVEN, QUESTIONS WERE ANSWERED, AND THE PATIENT EXPRESSED UNDERSTANDING AND AGREED WITH THE PLAN. I, CHRISTIE LOPEZ, DOCUMENTED THE ABOVE INFORMATION ACTING A SCRIBE FOR DR. STEVENS. I HAVE REVIEWED THE ABOVE DOCUMENT, WRITTEN BY CHRISTIE SCHMIDT AND I VERIFY THAT IT IS [facility] FLUORO GUIDANCE (PAIN)[id number] PROCEDURE CODES 13523 INJECT SACROILIAC JOINT 6045F RADXPS IN END [id number] PXD DISPOSITION & COMMUNICATION FOLLOW UP 3 WEEKS ELECTRONICALLY SIGNED BY HENRY STEVENS MD ON 03/06/2017 AT 07:09 PM EDT DISCLAIMER : THIS IS A VISIT SUMMARY EXTRACTED FROM THE [employer] CHART. IT IS NOT A COPY OF THE [employer] PROGRESS NOTE. LETHA
== END ==
LOC: M PAIN 08:40
PROVIDERS: ATTEND Anesthesiology
DX: M46.1 Sacroiliitis, not elsewhere classified (principal); M79.1 Myalgia; Z79.82 Long term (current) use of aspirin; Z79.84 Long term (current) use of oral hypoglycemic drugs; Z79.891 Long term (current) use of opiate analgesic; Z79.899 Other long term (current) drug therapy; Z79.4 Long term (current) use of insulin; I10 Essential (primary) hypertension; E11.9 Type 2 diabetes mellitus without complications; F32.9 Major depressive disorder, single episode, unspecified; E03.9 Hypothyroidism, unspecified; E78.5 Hyperlipidemia, unspecified; J44.9 Chronic obstructive pulmonary disease, unspecified; F17.210 Nicotine dependence, cigarettes, uncomplicated; Z88.0 Allergy status to penicillin; Z88.1 Allergy status to other antibiotic agents; Z88.8 Allergy status to other drugs, medicaments and biological substances

== ENCOUNTER → 2017-03-19 | Outpatient (CLI) | payer OTHER ==
[~2017-03-19] MED LIST changes: -BUPIVACAINE HCL 0.25% 30 ML VIAL As Ordered ONE; -ISOVUE-M 300 61% 15ML VIAL (Q9967) As Ordered ONE; -LIDOCAINE 1% SDV INJ 30 ML VIAL As Ordered ONE; -TRIAMCINOLONE ACETONIDE SUSP 40 MG/ML VIAL (J3301) As Ordered ONE
--- NOTE | 2017-04-04 23:55 | ECWPNPC ---
PATIENT NAME: JAMES LORENZO : 1965 GENDER: FEMALE VISIT DATE: 03/19/2017 DISCHARGE DATE: 03/19/17 1108 VISIT LOCKED DATE TIME: PHYSICIAN: SYED AZUL RESOURCE: SYED AZUL REASON FOR APPOINTMENT 1. POST SIJ HISTORY OF PRESENT ILLNESS HISTORY OF PRESENT ILLNESS: PAIN THE PATIENT DESCRIBES THE PAIN... FALL RISK SCREENING: SCREENING :NO FALLS IN THE PAST YEAR TODAY'S VISIT: NOTES: S/P RIGHT SIJ INJECT ON 02/26/17. NOTES PAIN IN AREA DECREASED FROM 8/10 TO 0/10 FOR OVER ONE WEEK, AND NOW HAS SEVERE MUSCLE KNOT AND PAIN IS RADIATING UP THE BACK. STATES PAIN IS NO LONGER RADIATING INTO RIGHT LEG. . CURRENT MEDICATIONS TAKING BREO ELLIPTA 100-25 MCG/INH AEROSOL POWDER BREATH ACTIVATED 1 PUFF INHALATION ONCE A DAY AT NIGHT PRN, NOTES: NONE RECEN TAKING SEROQUEL 50 MG TABLET 1 TABLET AT BEDTIME ORALLY AT BEDTIME TAKING WELLBUTRIN SR 100 MG TABLET EXTENDED RELEASE ORALLY DAILY TAKING SADE ALLERGY 180 MG TABLET 1 TABLET ORALLY ONCE A DAY TAKING GLIPIZIDE 5 MG TABLET 1/2 TABLET ORALLY ONCE A DAY TAKING FENOFIBRATE 160 MG TABLET 1 TABLET WITH A MEAL ORALLY ONCE A DAY TAKING SINGULAIR 10 MG TABLET 1 TAB ORALLY ONCE A DAY TAKING PRILOSEC 40 MG CAPSULE DELAYED RELEASE 1 CAPSULE ORALLY ONCE DAILY TAKING RISPERDAL 1 MG TABLET 1 TABLET ORALLY EVERY AM TAKING METFORMIN HCL 1000 MG TABLET 1 TABLET WITH MEALS ORALLY TWICE A DAY TAKING ONE TOUCH/ONE TOUCH II STARTER ONE TOUCH STIPS 1 STRIP SUBCUTANEOUSLY TWICE A DAY DX: 250.00 TAKING EVISTA 60 MG TABLET 1 TABLET ORALLY ONCE A DAY TAKING ASPIRIN 81 MG TABLET CHEWABLE 1 TABLET (TAKING TWICE A DAY) BY MOUTH ONCE A DAY TAKING RISPERDAL 0.5 MG TABLET 1 TABLET ORALLY AT BEDTIME TAKING PROPRANOLOL HCL ER 120 MG CAPSULE EXTENDED RELEASE 24 HOUR 1 CAPSULE ORALLY ONCE A DAY TAKING RASPBERRY KETONES 100 MG CAPSULE 1 DROP ORALLY BID TAKING TIZANIDINE HCL 4 MG TABLET 1 TAB ORALLY EVERY 8 HOURS MDD 3 TABS TAKING ATORVASTATIN CALCIUM 20 MG TABLET 1 TABLET ORALLY ONCE A DAY TAKING TOUJEO SOLOSTAR 300 UNIT/ML SOLUTION PEN-INJECTOR 60 UNITS SUBCUTANEOUS DAILY TAKING TOPAMAX 100 MG TABLET 1 TABLET ORALLY TWICE A DAY TAKING TESSALON PERLES 100 MG CAPSULE 1 CAPSULE NEEDED ORALLY THREE TIMES A DAY PRN COUGH TAKING [id number]-COD 31-309-99-30 MG CAPSULE 1 CAPSULE NEEDED ORALLY EVERY 4 HRS PRN MIGRAINE MDD=2 TAKING BUSPIRONE HCL 10 MG TABLET 1 TABLET ORALLY DAILY TAKING GABAPENTIN 400 MG CAPSULE 1 CAPSULE ORALLY THREE TIMES A DAY TAKING LOSARTAN POTASSIUM 25 MG TABLET 1/2 TABLET ORALLY ONCE A DAY TAKING NORCO 5-325 MG TABLET 1 TAB(S) ORALLY EVERY 8 HOURS PRN PAIN MDD=3 TAKING TRAMADOL HCL 50 MG TABLET 1 -2 TABLET ORALLY EVERY 4 -6 HRS PRN PAIN MDD = 6 NOT-TAKING SEROQUEL 50 MG TABLET 1 TABLET ORALLY BEFORE BEDTIME NOT-TAKING DULOXETINE HCL 30 MG CAPSULE DELAYED RELEASE PARTICLES 1 CAPSULE ORALLY DAILY, NOTES: NOT TAKING DUE DO ALLERGY NOT-TAKING HYDROCHLOROTHIAZIDE 12.5 MG CAPSULE 1 CAPSULE ORALLY ONCE A DAY UNKNOWN CLOTRIMAZOLE-BETAMETHASONE 1-0.05 % CREAM 1 APPLICATION TO AFFECTED AREA EXTERNALLY TWICE A DAY NEEDED UNKNOWN SYRINGE 1CC SYRINGES 1 SYRINGE INTRAMUSCULARLY ONCE A DAY UNKNOWN BLOOD PRESSURE MONITOR DX: 401.9 HOME BLOOD PRESSURE MONITOR TWICE A DAY MEDICATION LIST REVIEWED AND RECONCILED WITH THE PATIENT PAST MEDICAL HISTORY BIPOLAR DISORDER-MANAGED BY DR. 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, INSULIN REQUIRING HYPOTHYROIDISM HYPERLIPIDEMIA 2B OBESITY, MORBID NONALCOHOLIC FATTY LIVER DISEASE-SEEN DIET FEBRUARY 2006 ULTRASOUND ANEMIA, IRON DEFICIENCY-PATIENT REFUSES ENDOSCOPY EARLY MENOPAUSE AT AGE 42 ALLERGIES PENICILLIN (FOR ALLERGIES USE ONLY): DEADLY: ALLERGY AMOXICILLIN: DEADLY: ALLERGY TEGRETOL: DEADLY: ALLERGY CLARITIN: SOB: ALLERGY NIASPAN: HIVES BACLOFEN: HALLUCINATIONS MOBIC: SEVERE MIGRAINES: SIDE EFFECTS CLINDAMYCIN HCL: ANAPHYLAXIS: ALLERGY CYMBALTA: SEVERE NAUEA/VOMITING, INCREASE INTENSITY OF MIGRAINE: SIDE EFFECTS REVIEW OF SYSTEMS CONSTITUTIONAL: ANY CHANGE IN YOUR MEDICAL CONDITION? NO . CHILLS NO . FEVER NO . INFECTION: DO YOU HAVE NEW INFECTIONS? NO . DO YOU HAVE HISTORY OF MRSA? NO . MUSCULOSKELETAL: ANY NEW PATTERNS OF PAIN OR NUMBNESS? NO . GASTROENTEROLOGY: ANY NEW CHANGE IN BOWEL CONTROL? NO . GENITOURINARY: ANY NEW CHANGE IN BLADDER CONTROL? NO . IS THERE A CHANCE YOU COULD BE ? NO . HEMATOLOGY/LYMPH: DO YOU TAKE ANY BLOOD THINNERS? (FOR EXAMPLE- COUMADIN, PLAVIX, AGGRENOX, PLATEL, PRADAXA, OR XARELTO) NO . WHEN WAS YOUR LAST DOSE? DATE: TIME: . NEUROLOGY: HAVE YOU FALLEN IN THE PAST 6 MONTHS? YES, NOT SINCE LAST TIME SHE WAS HERE . ANY NEW EXTREMITY NUMBNESS OR WEAKNESS? NO . CARDIOLOGY: DO YOU HAVE A PACEMAKER OR DEFIBRILLATOR? NO . RESPIRATORY: HAVE YOU BEEN SICK IN THE PAST WEEK? NO . FEVER NO . FLU LIKE SYMPTOMS? NO . COUGH NO . INTEGUMENTARY: DO YOU HAVE ANY RASHES OR OPEN SORES? NO . ALLERGIC/IMMUNO: ARE YOU ALLERGIC TO SHELLFISH OR IV DYE? NO . ANY NEW ALLERGIES? NO . PSYCHIATRIC: DO YOU HAVE THOUGHTS OF HURTING YOURSELF OR SOMEONE ELSE? NO . ARE YOU ABUSED, NEGLECTED, OR IN AN UNSAFE ENVIRONMENT? NO . ENDOCRINOLOGY: ARE YOU DIABETIC? YES - UNDER CONTROL BS 118 . OTHER: DO YOU NEED ANY PRESCRIPTIONS? NO . IF YES, PLEASE LIST: ____ . ANY NEW PROBLEMS WITH YOUR MEDICATIONS? NO . WHEN DID YOU LAST EAT? ____ . WHEN DID YOU LAST DRINK? ____ . WHAT DID YOU LAST DRINK? ____ . NAME OF PERSON DRIVING YOU HOME? ____ . DO YOU HAVE ANY OTHER QUESTIONS OR CONCERNS NO . ALLERGY: NASAL CONGESTION SEASONAL ALLERGIES . REVIEWED BY: PROVIDER: SYED SOUZA . VITAL SIGNS WT 193.2 LBS, HT 64 IN, BMI 33.16 INDEX, BP 137/79 MM HG, HR 76 /MIN, RR 16 /MIN, TEMP 96.8 F, OXYGEN SAT % 96%, NA INITIALS TL 1037, REVIEWED BY: NL. EXAMINATION GENERAL EXAMINATION: PSYCHALERT , ORIENTED X 3 . LUNGS:LUNG SOUNDS ARE CLEAR. HEART:HEART RATE REGULAR. MUSCULOSKELETAL:MUSCLE STRENGTH TESTING 5/5 BILATERAL UPPER AND LOWER EXTREMITIES.. ABLE TO RISE TO STANDING POSITION. POSTURE STOOPED. GAIT SLOW. , TRIGGER POINTS AND TIGHT FIBROUS BANDS:, ELICITED WITH PALPATION OVER LUMBAR PARASPINOUS MUSCLES AND ACROSS THE SACRUM BILATERALLY. POINT TENDERNESS OVER RIGHT SACRAL ILIAC JOINT. POSITIVE WILL SIGN. . 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 SACROILIITIS - M46.1 LUMBAR DISC DISPLACEMENT WITHOUT MYELOPATHY - M51.26 TREATMENT MYALGIA REFILL [id number] CAPSULE, 51-399-12-30 MG, 1 CAPSULE NEEDED, ORALLY, EVERY 4 HRS PRN MIGRAINE MDD=2, 30 DAY(S), 30, REFILLS 1 TRIGGER POINT 3 + TOÑASYED GILLIAM Jorge 03/19/2017 10:58:55 AM > LOW BACK NOTES: CONTINUE CURRENT MEDS. HOLD DIABETIC MEDS AM OF PROCEDURE. CHECK BLOOD SUGAR AM OF PROCEDURE AND BRING RESULTS TO CLINIC. PREVENTIVE MEDICINE EXPRESSED UNDERSTANDING OF PREPROCEDURE INSTRUCTIONS/ KNOWS NOT TO TAKE ANY MEDS FOR HER BLOOD SUGARS. PROCEDURE CODES FA211 ESTABILISHED PATIENT [facility] CHARGE DISPOSITION & COMMUNICATION FOLLOW UP AFTER INJECTION (REASON: CHECK AUTH FOR TPI LOW BACK/SACRUM) ELECTRONICALLY SIGNED BY SAQIB ALEJO ON 04/04/2017 AT 03:47 PM EDT DISCLAIMER : THIS IS A VISIT SUMMARY EXTRACTED FROM THE [employer] CHART. IT IS NOT A COPY OF THE [employer] PROGRESS NOTE. LETHA
== END ==
LOC: M PAIN 10:40
PROVIDERS: ATTEND Nurse Practitioner Family
DX: M79.1 Myalgia (principal); M46.1 Sacroiliitis, not elsewhere classified; M51.26 Other intervertebral disc displacement, lumbar region; Z79.82 Long term (current) use of aspirin; Z79.84 Long term (current) use of oral hypoglycemic drugs; Z79.4 Long term (current) use of insulin; Z79.891 Long term (current) use of opiate analgesic; Z79.899 Other long term (current) drug therapy; Z88.0 Allergy status to penicillin; Z88.1 Allergy status to other antibiotic agents; Z88.8 Allergy status to other drugs, medicaments and biological substances

== ENCOUNTER → 2017-04-05 | Outpatient (CLI) | payer OTHER ==
[~2017-04-05] MED LIST changes: +TOPA1TAB PO; -TOPA25TA10 PO
--- NOTE | 2017-04-24 00:26 | ECWPNPC ---
PATIENT NAME: JAMES LORENZO : 1965 GENDER: FEMALE VISIT DATE: 04/05/2017 DISCHARGE DATE: 04/05/17 1227 VISIT LOCKED DATE TIME: PHYSICIAN: SYED AZUL RESOURCE: SYED AZUL REASON FOR APPOINTMENT 1. BACK HISTORY OF PRESENT ILLNESS HISTORY OF PRESENT ILLNESS: PAIN THE PATIENT DESCRIBES THE PAIN... FALL RISK SCREENING: SCREENING :NO FALLS IN THE PAST YEAR TODAY'S VISIT: NOTES: RATES PAIN TODAY 07/27. IS REPORTING SEVERE PAIN IN RIGHT SACRUM ASYA LAST INJECTION. SOMETHING POPPED IN LOW BACK WHEN LIFTING AN OBJECT.PAIN MEDS ARE NOT WORKING. CAN STAND AND WALK BUT REPORTS SHE IS IN [place].. CURRENT MEDICATIONS TAKING BREO ELLIPTA 100-25 MCG/INH AEROSOL POWDER BREATH ACTIVATED 1 PUFF INHALATION ONCE A DAY AT NIGHT PRN, NOTES: NONE RECEN TAKING SEROQUEL 50 MG TABLET 1 TABLET AT BEDTIME ORALLY AT BEDTIME TAKING WELLBUTRIN SR 100 MG TABLET EXTENDED RELEASE ORALLY DAILY TAKING SADE ALLERGY 180 MG TABLET 1 TABLET ORALLY ONCE A DAY TAKING GLIPIZIDE 5 MG TABLET 1/2 TABLET ORALLY ONCE A DAY TAKING FENOFIBRATE 160 MG TABLET 1 TABLET WITH A MEAL ORALLY ONCE A DAY TAKING SINGULAIR 10 MG TABLET 1 TAB ORALLY ONCE A DAY TAKING PRILOSEC 40 MG CAPSULE DELAYED RELEASE 1 CAPSULE ORALLY ONCE DAILY TAKING RISPERDAL 1 MG TABLET 1 TABLET ORALLY EVERY AM TAKING METFORMIN HCL 1000 MG TABLET 1 TABLET WITH MEALS ORALLY TWICE A DAY TAKING ONE TOUCH/ONE TOUCH II STARTER ONE TOUCH STIPS 1 STRIP SUBCUTANEOUSLY TWICE A DAY DX: 250.00 TAKING EVISTA 60 MG TABLET 1 TABLET ORALLY ONCE A DAY TAKING ASPIRIN 81 MG TABLET CHEWABLE 1 TABLET (TAKING TWICE A DAY) BY MOUTH ONCE A DAY TAKING RISPERDAL 0.5 MG TABLET 1 TABLET ORALLY AT BEDTIME TAKING PROPRANOLOL HCL ER 120 MG CAPSULE EXTENDED RELEASE 24 HOUR 1 CAPSULE ORALLY ONCE A DAY TAKING RASPBERRY KETONES 100 MG CAPSULE 1 DROP ORALLY BID TAKING TIZANIDINE HCL 4 MG TABLET 1 TAB ORALLY EVERY 8 HOURS MDD 3 TABS TAKING ATORVASTATIN CALCIUM 20 MG TABLET 1 TABLET ORALLY ONCE A DAY TAKING TOUJEO SOLOSTAR 300 UNIT/ML SOLUTION PEN-INJECTOR 60 UNITS SUBCUTANEOUS DAILY TAKING TOPAMAX 100 MG TABLET 1 TABLET ORALLY TWICE A DAY TAKING TESSALON PERLES 100 MG CAPSULE 1 CAPSULE NEEDED ORALLY THREE TIMES A DAY PRN COUGH TAKING BUSPIRONE HCL 10 MG TABLET 1 TABLET ORALLY DAILY TAKING GABAPENTIN 400 MG CAPSULE 1 CAPSULE ORALLY THREE TIMES A DAY TAKING LOSARTAN POTASSIUM 25 MG TABLET 1/2 TABLET ORALLY ONCE A DAY TAKING TRAMADOL HCL 50 MG TABLET 1 -2 TABLET ORALLY EVERY 4 -6 HRS PRN PAIN MDD = 6 TAKING [id number] 42-021-88-30 MG CAPSULE 1 CAPSULE NEEDED ORALLY EVERY 4 HRS PRN MIGRAINE MDD=2 TAKING NORCO 5-325 MG TABLET 1 TAB(S) ORALLY EVERY 8 HOURS PRN PAIN MDD=3 NOT-TAKING SEROQUEL 50 MG TABLET 1 TABLET ORALLY BEFORE BEDTIME NOT-TAKING DULOXETINE HCL 30 MG CAPSULE DELAYED RELEASE PARTICLES 1 CAPSULE ORALLY DAILY, NOTES: NOT TAKING DUE DO ALLERGY NOT-TAKING HYDROCHLOROTHIAZIDE 12.5 MG CAPSULE 1 CAPSULE ORALLY ONCE A DAY UNKNOWN CLOTRIMAZOLE-BETAMETHASONE 1-0.05 % CREAM 1 APPLICATION TO AFFECTED AREA EXTERNALLY TWICE A DAY NEEDED UNKNOWN SYRINGE 1CC SYRINGES 1 SYRINGE INTRAMUSCULARLY ONCE A DAY UNKNOWN BLOOD PRESSURE MONITOR DX: 401.9 HOME BLOOD PRESSURE MONITOR TWICE A DAY PAST MEDICAL HISTORY BIPOLAR DISORDER-MANAGED BY DR. 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 12/26 ARTHROSCOPIS KNEE SURGERY - L 1984 C-SECTIONS 1987, HOSPITALIZATION/MAJOR DIAGNOSTIC PROCEDURE LITHIUM TOXICITY (PEAK 2.59) REQUIRING DIALYSIS X1 SECONDARY TO ACUTE RENAL FAILURE (PEAK CR 2.1-11/2011 IT WAS 1.0) SECONDARY TO DEHYDRATION FROM VIRAL GASTRITIS, ACEI/[facility]IC [facility]- REVIEW OF SYSTEMS REVIEWED BY: PROVIDER: SYED SOUZA . CONSTITUTIONAL: ANY CHANGE IN YOUR MEDICAL CONDITION? YES . CHILLS NO . FEVER NO . INFECTION: DO YOU HAVE NEW INFECTIONS? NO . DO YOU HAVE HISTORY OF MRSA? NO . MUSCULOSKELETAL: ANY NEW PATTERNS OF PAIN OR NUMBNESS? NO . GASTROENTEROLOGY: ANY NEW CHANGE IN BOWEL CONTROL? NO . GENITOURINARY: ANY NEW CHANGE IN BLADDER CONTROL? NO . IS THERE A CHANCE YOU COULD BE ? NO . HEMATOLOGY/LYMPH: DO YOU TAKE ANY BLOOD THINNERS? (FOR EXAMPLE- COUMADIN, PLAVIX, AGGRENOX, PLATEL, PRADAXA, OR XARELTO) NO . WHEN WAS YOUR LAST DOSE? DATE: TIME: . NEUROLOGY: HAVE YOU FALLEN IN THE PAST 6 MONTHS? YES, COUPLE OF DAYS AGO KNEES GAVE OUT/ FELL ON BACKSIDE . ANY NEW EXTREMITY NUMBNESS OR WEAKNESS? NO . CARDIOLOGY: DO YOU HAVE A PACEMAKER OR DEFIBRILLATOR? NO . RESPIRATORY: HAVE YOU BEEN SICK IN THE PAST WEEK? NO . FEVER NO . FLU LIKE SYMPTOMS? NO . COUGH NO . INTEGUMENTARY: DO YOU HAVE ANY RASHES OR OPEN SORES? NO . ALLERGIC/IMMUNO: ARE YOU ALLERGIC TO SHELLFISH OR IV DYE? NO . ANY NEW ALLERGIES? NO . PSYCHIATRIC: DO YOU HAVE THOUGHTS OF HURTING YOURSELF OR SOMEONE ELSE? NO . ARE YOU ABUSED, NEGLECTED, OR IN AN UNSAFE ENVIRONMENT? NO . ENDOCRINOLOGY: ARE YOU DIABETIC? YES . OTHER: DO YOU NEED ANY PRESCRIPTIONS? NO . IF YES, PLEASE LIST: ____ . ANY NEW PROBLEMS WITH YOUR MEDICATIONS? NO . WHEN DID YOU LAST EAT? ____ . WHEN DID YOU LAST DRINK? ____ . WHAT DID YOU LAST DRINK? ____ . NAME OF PERSON DRIVING YOU HOME? ____ . DO YOU HAVE ANY OTHER QUESTIONS OR CONCERNS NO . VITAL SIGNS WT 193.2 LBS, HT 64 IN, BMI 33.16 INDEX, BP 134/78 MM HG, HR 82 /MIN, RR 16 /MIN, TEMP 98.6 F, OXYGEN SAT % 90%, NA INITIALS SC 11:41. EXAMINATION GENERAL EXAMINATION: PSYCHALERT , ORIENTED X 3 . LUNGS:LUNG SOUNDS ARE CLEAR. HEART:HEART RATE REGULAR. MUSCULOSKELETAL:MUSCLE STRENGTH TESTING 5/5 BILATERAL UPPER AND LOWER EXTREMITIES.. VERY SLOW TO RISE TO STANDING POSITION. POSTURE STOOPED. GAIT SLOW. , TRIGGER POINTS AND TIGHT FIBROUS BANDS:, ELICITED WITH PALPATION OVER LUMBAR PARASPINOUS MUSCLES AND ACROSS THE SACRUM BILATERALLY. POINT TENDERNESS OVER RIGHT SACRAL ILIAC JOINT. POSITIVE WILL SIGN. . 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 SACROILIITIS - M46.1 LUMBAR DISC DISPLACEMENT WITHOUT MYELOPATHY - M51.26 TREATMENT MYALGIA CLINICAL NOTES: ISTOP REGISTRY REVIEWED AND DEMNOSTRATES COMPLLIANCE. BRINGS IN MEDICATIONS WHICH IS APPROPRIATE FOR WHAT WAS DISPENSED. RECENT URINE TOXICOLOGY REVIEWED. NO UNAUTHORIZED MEDICATIONS. NO ILLICIT SUBSTANCES AND PRESCRIBED MEDICATIONS WERE PRESENT. WISHES TO HOLD ON ANY INJECTIONS FOR NOW CURRENT EXACERBATION IN PAIN BEGAN FOLLOWING SIJ INJECTION. LUMBAR DISC DISPLACEMENT WITHOUT MYELOPATHY START NORCO TABLET, 5-325 MG, 1-2 TABLETS, ORALLY, EVERY 6 HRS PRN PAIN MDD=6, 30 DAY(S), 180, REFILLS 0 [facility] SPINE, LUMBOSACRAL W/[id number],SUSAN M 04/05/2017 12:21:15 PM > INCREASED LOW BACK PAIN NOTES: OK TO INCREASE HYDROCODONE 2 TABS EVERY 6-8 HRS MAX 6 /DAY FOR 2 WEEKS. ICE/HEAT TO LOW BACK. WALK DAILY. PROCEDURE CODES FA211 ESTABILISHED PATIENT [facility] CHARGE DISPOSITION & COMMUNICATION FOLLOW UP 3-4 WEEKS (REASON: BACK PAIN) ELECTRONICALLY SIGNED BY SAQIB ALEJO ON 04/22/2017 AT 06:29 PM EDT DISCLAIMER : THIS IS A VISIT SUMMARY EXTRACTED FROM THE [email or web address] CHART. IT IS NOT A COPY OF THE [email or web address] PROGRESS NOTE. LETHA
== END ==
LOC: M PAIN 11:00
PROVIDERS: ATTEND Nurse Practitioner Family
DX: M79.1 Myalgia (principal); M46.1 Sacroiliitis, not elsewhere classified; M51.26 Other intervertebral disc displacement, lumbar region; Z79.891 Long term (current) use of opiate analgesic; Z79.899 Other long term (current) drug therapy; Z79.84 Long term (current) use of oral hypoglycemic drugs; Z79.82 Long term (current) use of aspirin; Z79.4 Long term (current) use of insulin; Z88.0 Allergy status to penicillin; Z88.8 Allergy status to other drugs, medicaments and biological substances

== ENCOUNTER → 2017-05-06 | Outpatient (CLI) | payer OTHER ==
--- NOTE | 2017-06-04 01:06 | ECWPNPC ---
PATIENT NAME: JAMES LORENZO : 1965 GENDER: FEMALE VISIT DATE: 05/06/2017 DISCHARGE DATE: 05/06/17 1524 VISIT LOCKED DATE TIME: PHYSICIAN: SYED AZUL RESOURCE: SYED AZUL REASON FOR APPOINTMENT 1. LOW BACK HISTORY OF PRESENT ILLNESS HISTORY OF PRESENT ILLNESS: PAIN THE PATIENT DESCRIBES THE PAIN... FALL RISK SCREENING: SCREENING :NO FALLS IN THE PAST YEAR TODAY'S VISIT: NOTES: RATES PAIN TODAY 8/10. NOTES PAIN IN CENTER BACK WITH RADIATION TO RIGHT LEG TO KNEE AND CALF. CAN NOT SLEEP. CURRENT MEDICATIONS TAKING BREO ELLIPTA 100-25 MCG/INH AEROSOL POWDER BREATH ACTIVATED 1 PUFF INHALATION ONCE A DAY AT NIGHT PRN, NOTES: NONE RECEN TAKING SEROQUEL 100 MG TABLET 1 TABLET AT BEDTIME ORALLY AT BEDTIME TAKING WELLBUTRIN SR 100 MG TABLET EXTENDED RELEASE ORALLY TWICE A DAY TAKING SADE ALLERGY 180 MG TABLET 1 TABLET ORALLY ONCE A DAY TAKING GLIPIZIDE 5 MG TABLET 1/2 TABLET ORALLY ONCE A DAY TAKING FENOFIBRATE 160 MG TABLET 1 TABLET WITH A MEAL ORALLY ONCE A DAY TAKING SINGULAIR 10 MG TABLET 1 TAB ORALLY ONCE A DAY TAKING PRILOSEC 40 MG CAPSULE DELAYED RELEASE 1 CAPSULE ORALLY TWICE A DAY TAKING RISPERDAL 1 MG TABLET 1 TABLET ORALLY EVERY AM TAKING METFORMIN HCL 1000 MG TABLET 1 TABLET WITH MEALS ORALLY TWICE A DAY TAKING ONE TOUCH/ONE TOUCH II STARTER ONE TOUCH STIPS 1 STRIP SUBCUTANEOUSLY TWICE A DAY DX: 250.00 TAKING EVISTA 60 MG TABLET 1 TABLET ORALLY ONCE A DAY TAKING ASPIRIN 81 MG TABLET CHEWABLE 1 TABLET (TAKING TWICE A DAY) BY MOUTH ONCE A DAY TAKING RISPERDAL 0.5 MG TABLET 1 TABLET ORALLY AT BEDTIME TAKING PROPRANOLOL HCL ER 120 MG CAPSULE EXTENDED RELEASE 24 HOUR 1 CAPSULE ORALLY ONCE A DAY TAKING RASPBERRY KETONES 100 MG CAPSULE 1 DROP ORALLY BID TAKING TIZANIDINE HCL 4 MG TABLET 1 TAB ORALLY EVERY 8 HOURS MDD 3 TABS TAKING ATORVASTATIN CALCIUM 20 MG TABLET 1 TABLET ORALLY ONCE A DAY TAKING TOUJEO SOLOSTAR 300 UNIT/ML SOLUTION PEN-INJECTOR 60 UNITS SUBCUTANEOUS DAILY TAKING TOPAMAX 100 MG TABLET 1 TABLET ORALLY TWICE A DAY TAKING TESSALON PERLES 100 MG CAPSULE 1 CAPSULE NEEDED ORALLY THREE TIMES A DAY PRN COUGH TAKING BUSPIRONE HCL 10 MG TABLET 1 TABLET ORALLY DAILY TAKING GABAPENTIN 400 MG CAPSULE 1 CAPSULE ORALLY THREE TIMES A DAY TAKING LOSARTAN POTASSIUM 25 MG TABLET 1/2 TABLET ORALLY ONCE A DAY TAKING TRAMADOL HCL 50 MG TABLET 1 -2 TABLET ORALLY EVERY 4 -6 HRS PRN PAIN MDD = 6 TAKING [id number]-COD 81-590-12-30 MG CAPSULE 1 CAPSULE NEEDED ORALLY EVERY 4 HRS PRN MIGRAINE MDD=2 TAKING NORCO 5-325 MG TABLET 1-2 TABLETS ORALLY EVERY 6 HRS PRN PAIN MDD=6 NOT-TAKING NORCO 5-325 MG TABLET 1 TAB(S) ORALLY EVERY 8 HOURS PRN PAIN MDD=3 NOT-TAKING SEROQUEL 50 MG TABLET 1 TABLET ORALLY BEFORE BEDTIME NOT-TAKING DULOXETINE HCL 30 MG CAPSULE DELAYED RELEASE PARTICLES 1 CAPSULE ORALLY DAILY, NOTES: NOT TAKING DUE DO ALLERGY NOT-TAKING HYDROCHLOROTHIAZIDE 12.5 MG CAPSULE 1 CAPSULE ORALLY ONCE A DAY UNKNOWN CLOTRIMAZOLE-BETAMETHASONE 1-0.05 % CREAM 1 APPLICATION TO AFFECTED AREA EXTERNALLY TWICE A DAY NEEDED UNKNOWN SYRINGE 1CC SYRINGES 1 SYRINGE INTRAMUSCULARLY ONCE A DAY UNKNOWN BLOOD PRESSURE MONITOR DX: 401.9 HOME BLOOD PRESSURE MONITOR TWICE A DAY MEDICATION LIST REVIEWED AND RECONCILED WITH THE PATIENT PAST MEDICAL HISTORY BIPOLAR DISORDER-MANAGED BY DR. 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, INSULIN REQUIRING HYPOTHYROIDISM HYPERLIPIDEMIA 2B OBESITY, MORBID NONALCOHOLIC FATTY LIVER DISEASE-SEEN DIET FEBRUARY 2006 ULTRASOUND ANEMIA, IRON DEFICIENCY-PATIENT REFUSES ENDOSCOPY EARLY MENOPAUSE AT AGE 42 ALLERGIES PENICILLIN (FOR ALLERGIES USE ONLY): DEADLY: ALLERGY AMOXICILLIN: DEADLY: ALLERGY TEGRETOL: DEADLY: ALLERGY CLARITIN: SOB: ALLERGY NIASPAN: HIVES BACLOFEN: HALLUCINATIONS MOBIC: SEVERE MIGRAINES: SIDE EFFECTS CLINDAMYCIN HCL: ANAPHYLAXIS: ALLERGY CYMBALTA: SEVERE NAUEA/VOMITING, INCREASE INTENSITY OF MIGRAINE: SIDE EFFECTS SOCIAL HISTORY GENERAL: TOBACCO USE ARE YOU A:CURRENT SMOKER HOW MANY CIGARETTES A DAY DO YOU SMOKE?11-20 HOW SOON AFTER YOU WAKE UP DO YOU SMOKE YOUR FIRST CIGARETTE?WITHIN 5 MIN HOW OFTEN DO YOU SMOKE CIGARETTES?EVERY DAY PATIENT COUNSELED ON THE DANGERS OF TOBACCO USE AND URGED TO QUIT:02/26/2017 ARE YOU INTERESTED IN QUITTING?NOT READY TO QUIT COUNSELED THE PATIENT ON SMOKING EFFECTS, EDUCATION [id number]/12/2017 PAIN CLINIC PFS, CLERGY, PUBLIC HEALTH REFERRALS PFS REFERRAL NEEDED?NO CLERGY REFERRAL NEEDED?NO PUBLIC HEALTH REFERRAL NEEDED?NO HAS THE PATIENT BEEN EDUCATED REGARDING HIS/HER PLAN OF CARE?YES HAS THE PATIENT BEEN EDUCATED REGARDING PAIN, THE RISK FOR PAIN, THE IMPORTANCE OF EFFECTIVE PAIN MANAGEMENT, AND THE PAIN ASSESSMENT PROCESS?YES PATIENT: ____. REVIEW OF SYSTEMS REVIEWED BY: PROVIDER: SYED SOUZA . CONSTITUTIONAL: ANY CHANGE IN YOUR MEDICAL CONDITION? NO . CHILLS NO . FEVER NO . INFECTION: DO YOU HAVE NEW INFECTIONS? NO . DO YOU HAVE HISTORY OF MRSA? NO . MUSCULOSKELETAL: ANY NEW PATTERNS OF PAIN OR NUMBNESS? NO . GASTROENTEROLOGY: ANY NEW CHANGE IN BOWEL CONTROL? NO . GENITOURINARY: ANY NEW CHANGE IN BLADDER CONTROL? NO . IS THERE A CHANCE YOU COULD BE ? NO . HEMATOLOGY/LYMPH: DO YOU TAKE ANY BLOOD THINNERS? (FOR EXAMPLE- COUMADIN, PLAVIX, AGGRENOX, PLATEL, PRADAXA, OR XARELTO) NO . WHEN WAS YOUR LAST DOSE? DATE: TIME: . NEUROLOGY: HAVE YOU FALLEN IN THE PAST 6 MONTHS? NO . ANY NEW EXTREMITY NUMBNESS OR WEAKNESS? NO . CARDIOLOGY: DO YOU HAVE A PACEMAKER OR DEFIBRILLATOR? NO . RESPIRATORY: HAVE YOU BEEN SICK IN THE PAST WEEK? NO . FEVER NO . FLU LIKE SYMPTOMS? NO . COUGH NO . INTEGUMENTARY: DO YOU HAVE ANY RASHES OR OPEN SORES? NO . ALLERGIC/IMMUNO: ARE YOU ALLERGIC TO SHELLFISH OR IV DYE? NO . ANY NEW ALLERGIES? NO . PSYCHIATRIC: DO YOU HAVE THOUGHTS OF HURTING YOURSELF OR SOMEONE ELSE? NO . ARE YOU ABUSED, NEGLECTED, OR IN AN UNSAFE ENVIRONMENT? NO . ENDOCRINOLOGY: ARE YOU DIABETIC? YES . OTHER: DO YOU NEED ANY PRESCRIPTIONS? NO . IF YES, PLEASE LIST: ____ . ANY NEW PROBLEMS WITH YOUR MEDICATIONS? NO . WHEN DID YOU LAST EAT? ____ . WHEN DID YOU LAST DRINK? ____ . WHAT DID YOU LAST DRINK? ____ . NAME OF PERSON DRIVING YOU HOME? ____ . DO YOU HAVE ANY OTHER QUESTIONS OR CONCERNS NO . VITAL SIGNS WT 193.8 LBS, HT 64 IN, BMI 33.26 INDEX, BP 130/90 MM HG, HR 87 /MIN, RR 18 /MIN, TEMP 98.2 F, OXYGEN SAT % 93%, NA INITIALS SC, REVIEWED BY: CIRILO. EXAMINATION GENERAL EXAMINATION: PSYCHALERT , ORIENTED X 3 . LUNGS:LUNG SOUNDS ARE CLEAR. HEART:HEART RATE REGULAR. MUSCULOSKELETAL:MUSCLE STRENGTH TESTING 5/5 BILATERAL UPPER AND LOWER EXTREMITIES.. VERY SLOW TO RISE TO STANDING POSITION. POSTURE STOOPED. GAIT SLOW. , TRIGGER POINTS AND TIGHT FIBROUS BANDS:, ELICITED WITH PALPATION OVER LUMBAR PARASPINOUS MUSCLES AND ACROSS THE SACRUM BILATERALLY. POINT TENDERNESS OVER RIGHT SACRAL ILIAC JOINT. POSITIVE WILL SIGN. . ASSESSMENTS LUMBAR DISC DISPLACEMENT WITHOUT MYELOPATHY - M51.26 (PRIMARY) MYALGIA - M79.1 FIBROMYALGIA - M79.7 SACROILIITIS - M46.1 LUMBAR RADICULOPATHY, RIGHT - M54.16 TREATMENT LUMBAR DISC DISPLACEMENT WITHOUT MYELOPATHY START PERCOCET TABLET, 10-325 MG, 1 TABLET NEEDED, ORALLY, EVERY 6 HRS PRN PAIN MDD=4, 30 DAY(S), 120, REFILLS 0 NOTES: ICE AND MASSAGE TO LOW BACKINTRALAMIAR EPIDURAL /SPECIAL ATTENTION RIGHT L5-S1HOLD BLOOD SUGAR MEDS AM OF PROCEDURE. CHECK BLOOD SUGAR AM OF PROCEDURE. CLINICAL NOTES: ISTOP REGISTRY REVIEWED AND DEMNOSTRATES COMPLLIANCE. BRINGS IN MEDICATIONS WHICH IS APPROPRIATE FOR WHAT WAS DISPENSED. RECENT URINE TOXICOLOGY REVIEWED. NO UNAUTHORIZED MEDICATIONS. NO ILLICIT SUBSTANCES AND PRESCRIBED MEDICATIONS WERE PRESENT. PREVENTIVE MEDICINE PAIN CLINIC TEACHING: MEDICATIONS PATIENT HAS TAKEN PERCOCET PRIOR AND DOES NOT NEED ANY ADDITIONAL INFORMATION. PROCEDURE TEACHING PRE-PROCEDURE TEACHING DONE. QUESTIONS ANSWERED. PATIENT STATES SHE HAS HAD EPIDURALS IN THE PAST.. PROCEDURE CODES FA211 ESTABILISHED PATIENT [facility] CHARGE DISPOSITION & COMMUNICATION FOLLOW UP AFTER INJECTION (REASON: INTRALAMIAR EPIDURAL /SPECIAL ATTENTION RIGHT L5-S1) ELECTRONICALLY SIGNED BY SAQIB ALEJO ON 06/03/2017 AT 08:54 AM EDT DISCLAIMER : THIS IS A VISIT SUMMARY EXTRACTED FROM THE [employer] CHART. IT IS NOT A COPY OF THE [employer] PROGRESS NOTE. MTDD
== END ==
LOC: M PAIN 13:20
PROVIDERS: ATTEND Nurse Practitioner Family
DX: M51.26 Other intervertebral disc displacement, lumbar region (principal); M79.7 Fibromyalgia; M46.1 Sacroiliitis, not elsewhere classified; M54.16 Radiculopathy, lumbar region; G89.29 Other chronic pain; F17.210 Nicotine dependence, cigarettes, uncomplicated; Z79.84 Long term (current) use of oral hypoglycemic drugs; Z79.899 Other long term (current) drug therapy; Z79.891 Long term (current) use of opiate analgesic; Z79.4 Long term (current) use of insulin; Z79.82 Long term (current) use of aspirin; Z88.0 Allergy status to penicillin; Z88.8 Allergy status to other drugs, medicaments and biological substances

== ENCOUNTER → 2017-05-12 | Outpatient (REF) | payer OTHER ==
[2017-05-12 16:02] LABS: BASO % 0.4 % (0.0-1.0); EOS # 0.2 K/mm3 (0.0-0.50); EOS % 1.4 % (0.0-3.0); LARGE UNSTAINED CELL # 0.2 K/mm3 (0.0-0.4); LARGE UNSTAINED CELL % 1.3 % (0.0-4.0); LYMPH # 3.6 K/mm3 (1.5-4.5); LYMPH % 24.3 % (24.0-44.0); MEAN CORPUSCULAR HEMOGLOBIN 30.6 pg (27.0-33.0); MEAN CORPUSCULAR HGB CONC 33.1 g/dl (32.0-36.5); MEAN CORPUSCULAR VOLUME 92.4 fl (80.0-96.0); MONO # 0.7 K/mm3 (0.0-0.8); MONO % 4.7 % (0.0-5.0); NEUTROPHILS # 9.4 K/mm3 (1.8-7.7); NEUTROPHILS % 67.8 % (36.0-66.0); PLATELET COUNT, AUTOMATED 276 k/mm3 (150-450); RED CELL DISTRIBUTION WIDTH 14.1 % (11.5-14.5); WHITE BLOOD COUNT 13.9 K/mm3 (4.0-10.0)
[2017-05-12 16:24] LABS: ALBUMIN 3.6 GM/DL (3.2-5.2); ALBUMIN/GLOBULIN RATIO 1.03 (1.00-1.93); ALKALINE PHOSPHATASE 66 U/L (45-117); ALT/SGPT 18 U/L (12-78); ANION GAP 10 MEQ/L (8-16); AST/SGOT 10 U/L (15-37); BILIRUBIN,TOTAL 0.3 MG/DL (0.2-1.0); BLOOD UREA NITROGEN 17 MG/DL (7-18); CALCIUM LEVEL 9.1 MG/DL (8.5-10.1); CARBON DIOXIDE LEVEL 23 MEQ/L (21-32); CHLORIDE LEVEL 103 MEQ/L (98-107); CREATININE FOR GFR 1.02 MG/DL (0.55-1.02); FERRITIN 26 NG/ML (8-252); GLOMERULAR FILTRATION RATE > 60.0 (>51); GLUCOSE, FASTING 168 MG/DL (70-105); PERCENT SATURATION 9.1 % (13.2-37.4); POTASSIUM SERUM 4.2 MEQ/L (3.5-5.1); SODIUM LEVEL 136 MEQ/L (136-145); TOTAL IRON BINDING CAPACITY 395 UG/DL (250-450); TOTAL PROTEIN 7.1 GM/DL (6.4-8.2)
== END ==
LOC: M SFHCPLAZ 14:56
PROVIDERS: ATTEND Physician Assistant Medical
DX: D50.8 Other iron deficiency anemias (principal); I10 Essential (primary) hypertension; E03.9 Hypothyroidism, unspecified; E11.8 Type 2 diabetes mellitus with unspecified complications

== ENCOUNTER → 2017-07-06 | Outpatient (CLI) | payer OTHER ==
[~2017-07-06] MED LIST changes: +ISOVUE-M 300 61% 15ML VIAL (Q9967) As Ordered ONE; +LIDOCAINE 1% SDV INJ 30 ML VIAL As Ordered ONE; +methylPREDNISolone SUSP 40 MG/ML (DEPO-medrol) VIAL (J1030) As Ordered ONE
--- NOTE | 2017-07-06 15:28 | REP ---
Partial lumbar spine series: Three views . History: Injection procedure for pain. Eight seconds of fluoroscopy time is reported. Findings: A sequence of three fluoroscopically obtained last image hold procedural spot radiographs of the lumbar spine document needle position and contrast injection associated with injection procedure. Signed by Adán Zuleta MD 07/06/2017 03:20 P
--- NOTE | 2017-07-07 00:29 | ECWPNPC ---
PATIENT NAME: JAMES LORENZO : 1965 GENDER: FEMALE VISIT DATE: 07/06/2017 DISCHARGE DATE: 07/06/17 1013 VISIT LOCKED DATE TIME: PHYSICIAN: HENRY STEVENS RESOURCE: HENRY STEVENS REASON FOR APPOINTMENT 1. INTRALAMINAR LE HISTORY OF PRESENT ILLNESS HISTORY OF PRESENT ILLNESS: PAIN THE PATIENT DESCRIBES THE PAIN... FALL RISK SCREENING: SCREENING :NO FALLS IN THE PAST YEAR CURRENT MEDICATIONS TAKING SEROQUEL 100 MG TABLET 1 TABLET AT BEDTIME ORALLY AT BEDTIME, NOTES: NONE LATELY TAKING RISPERDAL 1 MG TABLET 1 TABLET ORALLY EVERY AM, NOTES: 07/06/17529 TAKING BUSPIRONE HCL 10 MG TABLET 1 TABLET ORALLY DAILY, NOTES: 07/06/17529 TAKING SADE ALLERGY 180 MG TABLET 1 TABLET ORALLY ONCE A DAY, NOTES: 07/05/172099 TAKING FENOFIBRATE 160 MG TABLET 1 TABLET WITH A MEAL ORALLY ONCE A DAY, NOTES: 07/05/172099 TAKING SINGULAIR 10 MG TABLET 1 TAB ORALLY ONCE A DAY, NOTES: 07/05/172099 TAKING EVISTA 60 MG TABLET 1 TABLET ORALLY ONCE A DAY, NOTES: 07/05/172099 TAKING ATORVASTATIN CALCIUM 20 MG TABLET 1 TABLET ORALLY ONCE A DAY, NOTES: 07/06/17529 TAKING TOPAMAX 100 MG TABLET 1 TABLET ORALLY TWICE A DAY, NOTES: 07/06/17529 TAKING MHEYKLFIJF-BKEC-GPLX-COD 88-953-30-30 MG CAPSULE 1 CAPSULE NEEDED ORALLY EVERY 4 HRS PRN MIGRAINE MDD=2, NOTES: NONE LATELY TAKING BLOOD PRESSURE MONITOR DX: 401.9 HOME BLOOD PRESSURE MONITOR DAILY TAKING BREO ELLIPTA 100-25 MCG/INH AEROSOL POWDER BREATH ACTIVATED 1 PUFF INHALATION ONCE A DAY AT NIGHT PRN, NOTES: NONE RECENT.Y TAKING [employer] W/DEVICE KIT DIRECTED DX E11.8 _ FOUR TIMES DAILY TAKING TIZANIDINE HCL 4 MG TABLET 1 TAB ORALLY EVERY 8 HOURS MDD 3 TABS, NOTES: 07/06/17529 TAKING GABAPENTIN 400 MG CAPSULE 1 CAPSULE ORALLY THREE TIMES A DAY, NOTES: 07/06/17529 TAKING TRAMADOL HCL 50 MG TABLET 1 -2 TABLET ORALLY EVERY 4 -6 HRS PRN PAIN MDD = 6, NOTES: 07/06/17529 TAKING NICODERM CQ 21 MG/24HR PATCH 24 HOUR 1 PATCH TO SKIN TRANSDERMAL ONCE A DAY, NOTES: 07/06/17529 TAKING EQL NICOTINE POLACRILEX 2 MG LOZENGE 1 LOZENGE NEEDED MOUTH/THROAT TWICE A DAY, NOTES: NONE LATELY TAKING PROPRANOLOL HCL ER 120 MG CAPSULE EXTENDED RELEASE 24 HOUR 1 CAPSULE ORALLY ONCE A DAY, NOTES: 07/06/17529 TAKING LOSARTAN POTASSIUM 25 MG TABLET 1/2 TABLET ORALLY ONCE A DAY, NOTES: 07/06/17529 TAKING AMLODIPINE BESYLATE 2.5 MG TABLET 1 TABLET ORALLY ONCE A DAY, NOTES: 07/06/17529 TAKING PRILOSEC 40 MG CAPSULE DELAYED RELEASE 1 CAPSULE ORALLY TWICE A DAY, NOTES: 07/06/17529 TAKING ONE TOUCH/ONE TOUCH II STARTER ONE TOUCH STIPS 1 STRIP SUBCUTANEOUSLY TWICE A DAY DX: 250.00 TAKING METFORMIN HCL 1000 MG TABLET 1 TABLET WITH MEALS ORALLY TWICE A DAY, NOTES: 07/05/172099 TAKING ONETOUCH VERIO - STRIP DIRECTED IN VITRO FOUR TIMES DAILY NEEDED; E11.69 TAKING NOVOLOG FLEXPEN 100 UNIT/ML SOLUTION PEN-INJECTOR 5 UNITS C MEALS UNABLE TO USE SYRINGES DUE TO FIBROMYALGIA SUBCUTANEOUS QAC C MEALSMDDD : 30 UNITS, NOTES: 07/05/171999 TAKING TOUJEO SOLOSTAR 300 UNIT/ML SOLUTION PEN-INJECTOR 60 UNITS SUBCUTANEOUS BEFORE BEDTIME, NOTES: 07/05/171999 TAKING TRULICITY 0.75 MG/0.5ML SOLUTION PEN-INJECTOR 0.5 ML SUBCUTANEOUS WEEKLY, NOTES: 07/02/17 TAKING PERCOCET 5-325 MG TABLET 1 -2 TABLET NEEDED ORALLY EVERY 6 HRS PRN PAIN MDD=6, NOTES: 07/04/17 TAKING PERCOCET 5-325 MG TABLET 1 TABLET NEEDED ORALLY EVERY 4 HRS PRN PAIN MDD=6, NOTES: 07/06/17529 NOT-TAKING RASPBERRY KETONES 100 MG CAPSULE 1 DROP ORALLY BID NOT-TAKING AZITHROMYCIN 250 MG TABLET 2 TABLETS ON THE FIRST DAY, THEN 1 TABLET DAILY FOR 4 DAYS ORALLY ONCE A DAY NOT-TAKING VICTOZA 18 MG/3ML SOLUTION PEN-INJECTOR 0.2 ML SUBCUTANEOUS ONCE A DAY MEDICATION LIST REVIEWED AND RECONCILED WITH THE PATIENT PAST MEDICAL HISTORY BIPOLAR DISORDER-MANAGED BY DR. 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 12/26 ARTHROSCOPIS KNEE SURGERY - L 1984 C-SECTIONS 1987, HOSPITALIZATION/MAJOR DIAGNOSTIC PROCEDURE LITHIUM TOXICITY (PEAK 2.59) REQUIRING DIALYSIS X1 SECONDARY TO ACUTE RENAL FAILURE (PEAK CR 2.1-11/2011 IT WAS 1.0) SECONDARY TO DEHYDRATION FROM VIRAL GASTRITIS, ACEI/DIURETIC USE-[facility] 01/21- REVIEW OF SYSTEMS REVIEWED BY: PROVIDER: . CONSTITUTIONAL: ANY CHANGE IN YOUR MEDICAL CONDITION? NO . CHILLS NO . FEVER NO . INFECTION: DO YOU HAVE NEW INFECTIONS? NO . DO YOU HAVE HISTORY OF MRSA? NO . MUSCULOSKELETAL: ANY NEW PATTERNS OF PAIN OR NUMBNESS? NO . GASTROENTEROLOGY: ANY NEW CHANGE IN BOWEL CONTROL? NO . GENITOURINARY: ANY NEW CHANGE IN BLADDER CONTROL? NO . IS THERE A CHANCE YOU COULD BE ? NO . HEMATOLOGY/LYMPH: DO YOU TAKE ANY BLOOD THINNERS? (FOR EXAMPLE- COUMADIN, PLAVIX, AGGRENOX, PLATEL, PRADAXA, OR XARELTO) NO . WHEN WAS YOUR LAST DOSE? DATE: TIME: . NEUROLOGY: HAVE YOU FALLEN IN THE PAST 6 MONTHS? YES, PT STATES SHE FELL FOR LOSS OF BALANCE, WEAKNESS AND PAIN. PT DENIES SEEKING MEDICAL TX FOR ANY INJURIES . ANY NEW EXTREMITY NUMBNESS OR WEAKNESS? NO . CARDIOLOGY: DO YOU HAVE A PACEMAKER OR DEFIBRILLATOR? NO . RESPIRATORY: HAVE YOU BEEN SICK IN THE PAST WEEK? NO . FEVER NO . FLU LIKE SYMPTOMS? NO . COUGH NO . INTEGUMENTARY: DO YOU HAVE ANY RASHES OR OPEN SORES? NO . ALLERGIC/IMMUNO: ARE YOU ALLERGIC TO SHELLFISH OR IV DYE? NO . ANY NEW ALLERGIES? NO . PSYCHIATRIC: DO YOU HAVE THOUGHTS OF HURTING YOURSELF OR SOMEONE ELSE? NO . ARE YOU ABUSED, NEGLECTED, OR IN AN UNSAFE ENVIRONMENT? NO . ENDOCRINOLOGY: ARE YOU DIABETIC? YES . OTHER: DO YOU NEED ANY PRESCRIPTIONS? YES, GABAPENTIN, TRAMADOL, TOPOMAX . IF YES, PLEASE LIST: ____ . ANY NEW PROBLEMS WITH YOUR MEDICATIONS? NO . WHEN DID YOU LAST EAT? 07/05/17 2100 . WHEN DID YOU LAST DRINK? 07/06/17 0530 . WHAT DID YOU LAST DRINK? WATER . NAME OF PERSON DRIVING YOU HOME? ELI IQBAL . DO YOU HAVE ANY OTHER QUESTIONS OR CONCERNS NO . VITAL SIGNS WT 180 LBS, HT 64 IN, BMI 30.89 INDEX, BP 124/63 MM HG, HR 76 /MIN, RR 18 /MIN, TEMP 97.3 F, OXYGEN SAT % 97%, BLOOD GLUCOSE LEVEL 89, NA INITIALS SC 08:55, REVIEWED BY: DIPTI. ASSESSMENTS INTERVERTEBRAL DISC DISORDER WITH RADICULOPATHY OF LUMBAR REGION - M51.16 (PRIMARY) PROCEDURES PRE PROCEDURE DIAGNOSIS LUMBAR DISC DISORDER WITH RADICULOPATHY POST PROCEDURE DIAGNOSIS LUMBAR DISC DISORDER WITH RADICULOPATHY PROCEDURE LUMBAR EPIDURAL STEROID INJECTION UNDER FLUOROSCOPIC GUIDANCE SURGEON DR. HENRY STEVENS DISABILITY REPRESENTATIVE NONE ANESTHESIA LOCAL PRE PROCEDURE NOTE THE PATIENT HAS A HISTORY OF CHRONIC LOW BACK PAIN. I EVALUATE THE PATIENT AND REVIEWED THE CHART. I WENT OVER THE RISKS, ALTERNATIVES, AND BENEFITS ASSOCIATED WITH THIS PROCEDURE. THE PATIENT WOULD LIKE TO PROCEED AND GIVE CONSENT TO PERFORMED THE PROCEDURE. THE PATIENT DENIES UNEXPLAINABLE WEIGHT LOSS, FEVER, CHILLS, OR NEW CHANGES IN URINARY OR BOWEL CONTROL. DESCRIPTION OF PROCEDURE THE PATIENT WAS BROUGHT TO THE PROCEDURE ROOM AND PLACED IN THE PRONE POSITION. THE LUMBOSACRAL AREA WAS CLEANED WITH BETADINE SOLUTION AND DRAPED ASEPTICALLY. THE PROCEDURE WAS DONE UNDER STERILE CONDITIONS. I CHECKED LATERALITY AND THE LEVEL WHERE THE PROCEDURE WAS GOING TO BE PERFORMED WITH THE PATIENT AND THE SUPPORTING STAFF AT THE MOMENT OF THE TIME OUT IN THE PROCEDURE ROOM. UNDER FLUOROSCOPIC GUIDANCE, THE TARGET POINT WAS SELECTED AT THE INTERLAMINAR LEVEL OF L4-L5. LIDOCAINE WAS USED TO NUMB THE SKIN AND THE SUBCUTANEOUS TISSUE BELOW IT. EPIDURAL TUOHY NEEDLE, 17-GAUGE, WAS ADVANCED UNDER FLUOROSCOPIC GUIDANCE AND FOLLOWING PATIENT FEEDBACK UNTIL THE EPIDURAL SPACE WAS REACHED, 7 CM DEEP INTO THE SKIN BY THE LOSS OF RESISTANCE TECHNIQUE. ISOVUE M DYE 30%, 0.25 ML, WAS INJECTED SHOWING ADEQUATE SPREAD OF THE DYE. THEN, A SOLUTION OF 3 ML OF NORMAL SALINE WITH DEPO-MEDROL 60 MG WAS INJECTED SLOWLY FOLLOWING PATIENT FEEDBACK. THERE WAS NO EVIDENCE OF BLOOD, PARESTHESIA OR CEREBROSPINAL FLUID DURING THE PROCEDURE. THE PATIENT WAS SENT TO THE RECOVERY ROOM. THE PATIENT WAS MOVING THE EXTREMITIES AND DOING WELL. THERE WAS NO COMPLICATION DURING THE PROCEDURE. FLUOROSCOPY TIME WAS 8 SECONDS. POST PROCEDURE NOTE THE PATIENT WILL BE SEEN IN A FOLLOW UP IN THE NEXT FEW WEEKS. INSTRUCTIONS WERE GIVEN, QUESTIONS WERE ANSWERED, AND THE PATIENT EXPRESSED UNDERSTANDING AND AGREES WITH THE PLAN. I, CHRISTIE LOPEZ, DOCUMENTED THE ABOVE INFORMATION ACTING A SCRIBE FOR DR. STEVENS. I HAVE REVIEWED THE ABOVE DOCUMENT, WRITTEN BY CHRISTIE CSHMIDT AND I VERIFY THAT IT IS ACCURATE DIAGNOSTIC IMAGING [facility] FLUORO GUIDE SPINE INJECTION (PAIN)[id number] PROCEDURE CODES 84482 LUMBAR/SACRAL W/ IMAGING 6045F RADXPS IN END [id number] PXD DISPOSITION & COMMUNICATION FOLLOW UP 3 WEEKS ELECTRONICALLY SIGNED BY HENRY STEVENS MD ON 07/06/2017 AT 09:18 PM EDT DISCLAIMER : THIS IS A VISIT SUMMARY EXTRACTED FROM THE [employer] CHART. IT IS NOT A COPY OF THE [employer] PROGRESS NOTE. MTDD
== END ==
LOC: M PAIN 08:30
PROVIDERS: ATTEND Anesthesiology
DX: G89.29 Other chronic pain (principal); M51.16 Intervertebral disc disorders with radiculopathy, lumbar region; M54.5 Low back pain; I10 Essential (primary) hypertension; J44.9 Chronic obstructive pulmonary disease, unspecified; E78.2 Mixed hyperlipidemia; E11.9 Type 2 diabetes mellitus without complications; Z79.891 Long term (current) use of opiate analgesic; Z79.84 Long term (current) use of oral hypoglycemic drugs; Z79.899 Other long term (current) drug therapy; Z79.4 Long term (current) use of insulin; Z88.0 Allergy status to penicillin; Z88.1 Allergy status to other antibiotic agents; Z88.8 Allergy status to other drugs, medicaments and biological substances
CPT/HCPCS: 62323; J1030; Q9967

== ENCOUNTER → 2017-08-03 | Outpatient (CLI) | payer OTHER ==
[~2017-08-03] MED LIST changes: -ISOVUE-M 300 61% 15ML VIAL (Q9967) As Ordered ONE; -LIDOCAINE 1% SDV INJ 30 ML VIAL As Ordered ONE; -methylPREDNISolone SUSP 40 MG/ML (DEPO-medrol) VIAL (J1030) As Ordered ONE
--- NOTE | 2017-08-03 23:14 | ECWPNPC ---
PATIENT NAME: JAMES LORENZO : 1965 GENDER: FEMALE VISIT DATE: 08/03/2017 DISCHARGE DATE: 08/03/17 1313 VISIT LOCKED DATE TIME: PHYSICIAN: HENRY STEVENS RESOURCE: HENRY STEVENS REASON FOR APPOINTMENT 1. DISCUSS MED REACTIONS, SW PATIENT HISTORY OF PRESENT ILLNESS HISTORY OF PRESENT ILLNESS: PAIN THE PATIENT DESCRIBES THE PAIN... PT WITH HISTORY OF LOW BACK PAIN. LESI DONE A MONTH AGO GIVING MORE THAN 50% PAIN RELIEF IN PAIN DOWN THE LEG WITH INCREASE FUNCTIONALITY. SHE CAN WALK BETTER AND IS SATISFIED WITH RESULTS. PRESENTLY SHE HAS PAIN IN RIGHT LOWER BACK AREA WITH SPASTICITY. SHE DESCRIBE THIS PAIN CONSTANT AND ACHING. SHE DEVELOPED A REACTION TO OXYCODONE AND GABAPENTIN. FALL RISK SCREENING: SCREENING :NO FALLS IN THE PAST YEAR CURRENT MEDICATIONS TAKING SEROQUEL 100 MG TABLET 1 TABLET AT BEDTIME ORALLY AT BEDTIME, NOTES: NONE LATELY TAKING RISPERDAL 1 MG TABLET 1 TABLET ORALLY EVERY AM, NOTES: 07/06/17529 TAKING BUSPIRONE HCL 10 MG TABLET 1 TABLET ORALLY DAILY, NOTES: 07/06/17529 TAKING SADE ALLERGY 180 MG TABLET 1 TABLET ORALLY ONCE A DAY, NOTES: 07/05/172099 TAKING SINGULAIR 10 MG TABLET 1 TAB ORALLY ONCE A DAY, NOTES: 07/05/172099 TAKING EVISTA 60 MG TABLET 1 TABLET ORALLY ONCE A DAY, NOTES: 07/05/172099 TAKING BLOOD PRESSURE MONITOR DX: 401.9 HOME BLOOD PRESSURE MONITOR DAILY TAKING BREO ELLIPTA 100-25 MCG/INH AEROSOL POWDER BREATH ACTIVATED 1 PUFF INHALATION ONCE A DAY AT NIGHT PRN, NOTES: NONE RECENT.Y TAKING [employer] W/DEVICE KIT DIRECTED DX E11.8 _ FOUR TIMES DAILY TAKING PROPRANOLOL HCL ER 120 MG CAPSULE EXTENDED RELEASE 24 HOUR 1 CAPSULE ORALLY ONCE A DAY, NOTES: 07/06/17529 TAKING LOSARTAN POTASSIUM 25 MG TABLET 1/2 TABLET ORALLY ONCE A DAY, NOTES: 07/06/17529 TAKING AMLODIPINE BESYLATE 2.5 MG TABLET 1 TABLET ORALLY ONCE A DAY, NOTES: 07/06/17529 TAKING PRILOSEC 40 MG CAPSULE DELAYED RELEASE 1 CAPSULE ORALLY TWICE A DAY, NOTES: 07/06/17529 TAKING ONE TOUCH/ONE TOUCH II STARTER ONE TOUCH STIPS 1 STRIP SUBCUTANEOUSLY TWICE A DAY DX: 250.00 TAKING METFORMIN HCL 1000 MG TABLET 1 TABLET WITH MEALS ORALLY TWICE A DAY, NOTES: 07/05/172099 TAKING ONETOUCH VERIO - STRIP DIRECTED IN VITRO FOUR TIMES DAILY NEEDED; E11.69 TAKING NOVOLOG FLEXPEN 100 UNIT/ML SOLUTION PEN-INJECTOR 5 UNITS C MEALS UNABLE TO USE SYRINGES DUE TO FIBROMYALGIA SUBCUTANEOUS QAC C MEALSMDDD : 30 UNITS, NOTES: 07/05/171999 TAKING TOUJEO SOLOSTAR 300 UNIT/ML SOLUTION PEN-INJECTOR 60 UNITS SUBCUTANEOUS BEFORE BEDTIME, NOTES: 07/05/171999 TAKING TRULICITY 0.75 MG/0.5ML SOLUTION PEN-INJECTOR 0.5 ML SUBCUTANEOUS WEEKLY, NOTES: 07/02/17 TAKING ATORVASTATIN CALCIUM 20 MG TABLET 1 TABLET ORALLY ONCE A DAY, NOTES: 07/06/17529 TAKING FENOFIBRATE 160 MG TABLET 1 TABLET WITH A MEAL ORALLY ONCE A DAY, NOTES: 07/05/172099 TAKING TIZANIDINE HCL 4 MG TABLET 1 TAB ORALLY EVERY 8 HOURS MDD 3 TABS TAKING TOPAMAX 100 MG TABLET 1 TABLET ORALLY TWICE A DAY TAKING TRAMADOL HCL 50 MG TABLET 1 -2 TABLET ORALLY EVERY 4 -6 HRS PRN PAIN MDD = 6 TAKING BD PEN NEEDLE SHORT U/F 31G X 8 MM MISCELLANEOUS DIRECTED SUBCUTANEOUSLY FIVE TIMES DAILY NEEDED TAKING HYDROCODONE-ACETAMINOPHEN 5-325 MG TABLET 1 TABLET NEEDED ORALLY EVERY 6 HRS, NOTES: STATES SHE HAS THESE FROM AN OLD PRESCRIPTION NOT-TAKING GSREFUFLCP-YSVW-CMPS-COD 12-825-18-30 MG CAPSULE 1 CAPSULE NEEDED ORALLY EVERY 4 HRS PRN MIGRAINE MDD=2, NOTES: NONE LATELY NOT-TAKING PERCOCET 5-325 MG TABLET 1 -2 TABLET NEEDED ORALLY EVERY 6 HRS PRN PAIN MDD=6, NOTES: 07/04/17 NOT-TAKING PERCOCET 5-325 MG TABLET 1 TABLET NEEDED ORALLY EVERY 4 HRS PRN PAIN MDD=6, NOTES: 07/06/17529 NOT-TAKING GABAPENTIN 400 MG CAPSULE 1 CAPSULE ORALLY THREE TIMES A DAY NOT-TAKING RASPBERRY KETONES 100 MG CAPSULE 1 DROP ORALLY BID NOT-TAKING AZITHROMYCIN 250 MG TABLET 2 TABLETS ON THE FIRST DAY, THEN 1 TABLET DAILY FOR 4 DAYS ORALLY ONCE A DAY NOT-TAKING VICTOZA 18 MG/3ML SOLUTION PEN-INJECTOR 0.2 ML SUBCUTANEOUS ONCE A DAY DISCONTINUED NICODERM CQ 21 MG/24HR PATCH 24 HOUR 1 PATCH TO SKIN TRANSDERMAL ONCE A DAY, NOTES: 07/06/17 0530 DISCONTINUED EQL NICOTINE POLACRILEX 2 MG LOZENGE 1 LOZENGE NEEDED MOUTH/THROAT TWICE A DAY, NOTES: NONE LATELY MEDICATION LIST REVIEWED AND RECONCILED WITH THE PATIENT PAST MEDICAL HISTORY BIPOLAR DISORDER-MANAGED BY DR. 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, INSULIN REQUIRING HYPOTHYROIDISM HYPERLIPIDEMIA 2B OBESITY, MORBID NONALCOHOLIC FATTY LIVER DISEASE-SEEN DIET FEBRUARY 2006 ULTRASOUND ANEMIA, IRON DEFICIENCY-PATIENT REFUSES ENDOSCOPY EARLY MENOPAUSE AT AGE 42 ALLERGIES PENICILLIN (FOR ALLERGIES USE ONLY): DEADLY: ALLERGY AMOXICILLIN: DEADLY: ALLERGY TEGRETOL: DEADLY: ALLERGY CLARITIN: SOB: ALLERGY NIASPAN: HIVES BACLOFEN: HALLUCINATIONS MOBIC: SEVERE MIGRAINES: SIDE EFFECTS CLINDAMYCIN HCL: ANAPHYLAXIS: ALLERGY CYMBALTA: SEVERE NAUEA/VOMITING, INCREASE INTENSITY OF MIGRAINE: SIDE EFFECTS GABAPENTIN: NUMBNESS: SIDE EFFECTS OXYCODONE: ANAPHYLAXIS: ALLERGY SURGICAL HISTORY R BREAST BX. 12/26 ARTHROSCOPIS KNEE SURGERY - L 1985 C-SECTIONS 1987, FAMILY HISTORY NO FAMILY HISTORY DOCUMENTED. SOCIAL HISTORY GENERAL: TOBACCO USE ARE YOU A:CURRENT SMOKER ARE YOU INTERESTED IN QUITTING?NOT READY TO QUIT COUNSELED THE PATIENT ON SMOKING EFFECTS, EDUCATION [id number]/17/2017 EDUCATION MATERIAL PRINTED OFF HOW MANY CIGARETTES A DAY DO YOU SMOKE?11-20 HOW SOON AFTER YOU WAKE UP DO YOU SMOKE YOUR FIRST CIGARETTE?WITHIN 5 MIN HOW OFTEN DO YOU SMOKE CIGARETTES?EVERY DAY PATIENT COUNSELED ON THE DANGERS OF TOBACCO USE AND URGED TO QUIT:08/03/2017 BMI CARE GOAL FOLLOW-UP ABOVE NORMAL BMI FOLLOW-UPDIETARY NEEDS EDUCATION ALCOHOL SCREENING DID YOU HAVE A DRINK CONTAINING ALCOHOL IN THE PAST YEAR?NO POINTS0 INTERPRETATIONNEGATIVE CAFFEINE CAFFEINE USE?YES OCCUPATION: DISABLED. DIET: CARBOHYDRATE CONTROLLED. EXERCISE: NO REGULAR EXERCISE. MARITAL STATUS: .. [id number] BUDDHISM LANGUAGE LANGUAGES SPOKEN:NAMIBIAN EDUCATION LEVEL OF EDUCATION:FINISHED COLLEGE LEARNING BARRIERS / SPECIAL NEEDS CHANGE FROM LAST VISIT?NO BARRIERS TO LEARNING?NO HEARING IMPAIRED?NO VISION IMPAIRED?YES :CORRECTIVE LENSES COGNITIVELY IMPAIRED?NO READINESS TO LEARN?YES LEARNING PREFERENCES?NO LEARNING CAPABILITIES PRESENT?YES EMOTIONAL BARRIERS?NO SPECIAL DEVICES?NO LEAD FABRICATOR NEEDED?NO PAIN CLINIC PFS, CLERGY, PUBLIC HEALTH REFERRALS PFS REFERRAL NEEDED?NO CLERGY REFERRAL NEEDED?NO PUBLIC HEALTH REFERRAL NEEDED?NO HAS THE PATIENT BEEN EDUCATED REGARDING HIS/HER PLAN OF CARE?YES HAS THE PATIENT BEEN EDUCATED REGARDING PAIN, THE RISK FOR PAIN, THE IMPORTANCE OF EFFECTIVE PAIN MANAGEMENT, AND THE PAIN ASSESSMENT PROCESS?YES PATIENT: ____. TRAVEL OUTSIDE US: NO. DOMESTIC VIOLENCE DO YOU FEEL SAFE IN YOUR ENVIRONMENT?YES HOSPITALIZATION/MAJOR DIAGNOSTIC PROCEDURE LITHIUM TOXICITY (PEAK 2.59) REQUIRING DIALYSIS X1 SECONDARY TO ACUTE RENAL FAILURE (PEAK CR 2.1-11/2011 IT WAS 1.0) SECONDARY TO DEHYDRATION FROM VIRAL GASTRITIS, ACEI/DIURETIC USE-[facility] 01/21- REVIEW OF SYSTEMS REVIEWED BY: PROVIDER: HENRY STEVENS MD . CONSTITUTIONAL: ANY CHANGE IN YOUR MEDICAL CONDITION? NO . CHILLS NO . FEVER NO . INFECTION: DO YOU HAVE NEW INFECTIONS? NO . DO YOU HAVE HISTORY OF MRSA? NO . MUSCULOSKELETAL: ANY NEW PATTERNS OF PAIN OR NUMBNESS? YES PT REPORTS NUMBNESS ON HER ENTIRE LEFT SIDE, BELIEVES IT TO BE A REACTION TO THE GABAPENTIN. SHE HAS SINCE STOPPED THE GABAPENTIN AND THE NUMBNESS IS GONE. . GASTROENTEROLOGY: ANY NEW CHANGE IN BOWEL CONTROL? NO . GENITOURINARY: ANY NEW CHANGE IN BLADDER CONTROL? NO . IS THERE A CHANCE YOU COULD BE ? NO . HEMATOLOGY/LYMPH: DO YOU TAKE ANY BLOOD THINNERS? (FOR EXAMPLE- COUMADIN, PLAVIX, AGGRENOX, PLATEL, PRADAXA, OR XARELTO) NO . WHEN WAS YOUR LAST DOSE? DATE: TIME: . NEUROLOGY: HAVE YOU FALLEN IN THE PAST 6 MONTHS? NO . ANY NEW EXTREMITY NUMBNESS OR WEAKNESS? NO . CARDIOLOGY: DO YOU HAVE A PACEMAKER OR DEFIBRILLATOR? NO . RESPIRATORY: HAVE YOU BEEN SICK IN THE PAST WEEK? NO . FEVER NO . FLU LIKE SYMPTOMS? NO . COUGH NO . INTEGUMENTARY: DO YOU HAVE ANY RASHES OR OPEN SORES? NO . ALLERGIC/IMMUNO: ARE YOU ALLERGIC TO SHELLFISH OR IV DYE? NO . ANY NEW ALLERGIES? NO . PSYCHIATRIC: DO YOU HAVE THOUGHTS OF HURTING YOURSELF OR SOMEONE ELSE? NO . ARE YOU ABUSED, NEGLECTED, OR IN AN UNSAFE ENVIRONMENT? NO . ENDOCRINOLOGY: ARE YOU DIABETIC? YES . OTHER: DO YOU NEED ANY PRESCRIPTIONS? NO . IF YES, PLEASE LIST: ____ . ANY NEW PROBLEMS WITH YOUR MEDICATIONS? YES PT REPORTS NEW ALLERGIES - SHE REPORTS THE GABAPENTIN IS MAKING HER NUMB ON THE LEFT SIDE. SHE STOPPED TAKING IT AND THE NUMBNESS HAS GONE AWAY. SHE ALSO REPORTS THAT HER OXYCODONE, WHICH SHE HAS BEEN ON SINCE APRIL, HAS RECENTLY STARTED MAKING HER ITCH, GETTING PROGRESSIVELY WORSE AND SHE HAD AN ANAPHYLLACTIC REACTION OVER THE WEEKEND TO IT. SHE CALLED THE PHARMACIST, WHO ADVISED HER TO STOP TAKING HER OXYCODONE. SHE IS NOW REPORTING THAT SHE IS GOING THROUGH WITHDRAWAL SYMPTOMS. . WHEN DID YOU LAST EAT? ____ . WHEN DID YOU LAST DRINK? ____ . WHAT DID YOU LAST DRINK? ____ . NAME OF PERSON DRIVING YOU HOME? ____ . DO YOU HAVE ANY OTHER QUESTIONS OR CONCERNS NO . VITAL SIGNS WT 180 LBS, HT 64 IN, BMI 30.89 INDEX, BP 143/77 MM HG, HR 90 /MIN, RR 18 /MIN, TEMP 98.6 F, OXYGEN SAT % 95%, SAFE IN ENV? (Y/N) YES, NA INITIALS AW 1058, REVIEWED BY: ADELE. EXAMINATION : PT IS ALERT OX3 AND COOPERATIVE. TENDERNESS AT RIGHT LOWER BACK AREA WITH PRESENCE OF TRIGGER POINTS AND RESTRICTION OF MOVEMENT. BANDS OF TISSUE ARE PRESENT. ASSESSMENTS MYALGIA - M79.1 (PRIMARY) LOW BACK PAIN - M54.5 OTHER CHRONIC PAIN - G89.29 TREATMENT MYALGIA CLINICAL NOTES: I WENT THROUGH THE RISK ALTERNATIVES AND BENEFITS OF TPI THE PT EXPRESS SHE WANT TO MOVE FORWARD WITH IT. IN TERMS OF MEDICATIONS SHE WILL STOP OXYCODONE AND GABAPENTIN. BASED IN OUR CONVERSATION I DO NOT THINK SHE HAS ALLERGY TO GABAPENTIN. PROBABLY IT CAN BE STARTED AGAIN AT A LOW DOSE. AFTER DISCUSSING WITH THE PATIENT SHE WILL MOVE FORWARD WITH THE TRIGGER POINT AND DISCUSS THE MEDS WITH THE SET UP MECHANIC STAMPING MACHINES ON HER NEXT VISIT. INSTRUCTIONS WERE GIVING QUESTIONS WERE ANSWERED. THE PATIENT REPORTS UNDERSTANDING AND AGREES. PROCEDURE CODES FA211 ESTABILISHED PATIENT [facility] FACILITY CHARGE DISPOSITION & COMMUNICATION FOLLOW UP TPI AND F/UP WITH SET UP MECHANIC STAMPING MACHINES ELECTRONICALLY SIGNED BY HENRY STEVENS MD ON 08/03/2017 AT 03:03 PM EDT DISCLAIMER : THIS IS A VISIT SUMMARY EXTRACTED FROM THE [employer] CHART. IT IS NOT A COPY OF THE [employer] PROGRESS NOTE. MTDD
== END ==
LOC: M PAIN 11:30
PROVIDERS: ATTEND Anesthesiology
DX: M79.1 Myalgia (principal); M54.5 Low back pain; G89.29 Other chronic pain; I10 Essential (primary) hypertension; J44.9 Chronic obstructive pulmonary disease, unspecified; E11.8 Type 2 diabetes mellitus with unspecified complications; F31.9 Bipolar disorder, unspecified; K21.9 Gastro-esophageal reflux disease without esophagitis; Z79.891 Long term (current) use of opiate analgesic; Z79.4 Long term (current) use of insulin; Z79.899 Other long term (current) drug therapy; Z88.0 Allergy status to penicillin; Z88.1 Allergy status to other antibiotic agents; Z88.8 Allergy status to other drugs, medicaments and biological substances

== ENCOUNTER → 2017-08-11 | Outpatient (CLI) | payer OTHER ==
--- NOTE | 2017-09-06 00:21 | ECWPNPC ---
PATIENT NAME: JAMES LORENZO : 1965 GENDER: FEMALE VISIT DATE: 08/11/2017 DISCHARGE DATE: 08/11/17 1614 VISIT LOCKED DATE TIME: PHYSICIAN: SYED AZUL RESOURCE: SYED AZUL REASON FOR APPOINTMENT 1. MYOFACIAL, LBP HISTORY OF PRESENT ILLNESS HISTORY OF PRESENT ILLNESS: PAIN THE PATIENT DESCRIBES THE PAIN... FALL RISK SCREENING: SCREENING :NO FALLS IN THE PAST YEAR TODAY'S VISIT: NOTES: HAD ITCHING, DIFF BREATHING AND THEN LEFT SIDE NUMBNESS WITH OXYCODONE. HAD ADVERSE REACTION ALSO TO GABAPENTIN WITH WEAKNESS AND NUMBNESS IN LEFT SIDE. STOPPED AND RESTARTED WITH SAME REACTION. DR PERAZA () THINKS IT IS A REACTION WITH THESE MEDS AND TRULICITYIS DUE FOR TPI ON 08/16/17. CURRENT MEDICATIONS TAKING SEROQUEL 100 MG TABLET 1 TABLET AT BEDTIME ORALLY AT BEDTIME TAKING RISPERDAL 1 MG TABLET 1 TABLET ORALLY EVERY AM TAKING BUSPIRONE HCL 10 MG TABLET 1 TABLET ORALLY DAILY TAKING SADE ALLERGY 180 MG TABLET 1 TABLET ORALLY ONCE A DAY TAKING SINGULAIR 10 MG TABLET 1 TAB ORALLY ONCE A DAY TAKING EVISTA 60 MG TABLET 1 TABLET ORALLY ONCE A DAY TAKING BLOOD PRESSURE MONITOR DX: 401.9 HOME BLOOD PRESSURE MONITOR DAILY TAKING BREO ELLIPTA 100-25 MCG/INH AEROSOL POWDER BREATH ACTIVATED 1 PUFF INHALATION ONCE A DAY AT NIGHT PRN TAKING ONETOUCH VERIO W/DEVICE KIT DIRECTED DX E11.8 _ FOUR TIMES DAILY TAKING PROPRANOLOL HCL ER 120 MG CAPSULE EXTENDED RELEASE 24 HOUR 1 CAPSULE ORALLY ONCE A DAY TAKING LOSARTAN POTASSIUM 25 MG TABLET 1/2 TABLET ORALLY ONCE A DAY TAKING PRILOSEC 40 MG CAPSULE DELAYED RELEASE 1 CAPSULE ORALLY TWICE A DAY TAKING ONE TOUCH/ONE TOUCH II STARTER ONE TOUCH STIPS 1 STRIP SUBCUTANEOUSLY TWICE A DAY DX: 250.00 TAKING METFORMIN HCL 1000 MG TABLET 1 TABLET WITH MEALS ORALLY TWICE A DAY, NOTES: 07/05/17 2100 TAKING ONETOUCH VERIO - STRIP DIRECTED IN VITRO FOUR TIMES DAILY NEEDED; E11.69 TAKING NOVOLOG FLEXPEN 100 UNIT/ML SOLUTION PEN-INJECTOR 5 UNITS C MEALS UNABLE TO USE SYRINGES DUE TO FIBROMYALGIA SUBCUTANEOUS QAC C MEALSMDDD : 30 UNITS TAKING TOUJEO SOLOSTAR 300 UNIT/ML SOLUTION PEN-INJECTOR 60 UNITS SUBCUTANEOUS BEFORE BEDTIME TAKING TRULICITY 0.75 MG/0.5ML SOLUTION PEN-INJECTOR 0.5 ML SUBCUTANEOUS WEEKLY TAKING ATORVASTATIN CALCIUM 20 MG TABLET 1 TABLET ORALLY ONCE A DAY TAKING FENOFIBRATE 160 MG TABLET 1 TABLET WITH A MEAL ORALLY ONCE A DAY TAKING TIZANIDINE HCL 4 MG TABLET 1 TAB ORALLY EVERY 8 HOURS MDD 3 TABS TAKING TOPAMAX 100 MG TABLET 1 TABLET ORALLY TWICE A DAY TAKING TRAMADOL HCL 50 MG TABLET 1 -2 TABLET ORALLY EVERY 4 -6 HRS PRN PAIN MDD = 6 TAKING BD PEN NEEDLE SHORT U/F 31G X 8 MM MISCELLANEOUS DIRECTED SUBCUTANEOUSLY FIVE TIMES DAILY NEEDED TAKING HYDROCODONE-ACETAMINOPHEN 5-325 MG TABLET 1 TABLET NEEDED ORALLY EVERY 6 HRS MDD3, NOTES: STATES SHE HAS THESE FROM AN OLD PRESCRIPTION NOT-TAKING AMLODIPINE BESYLATE 2.5 MG TABLET 1 TABLET ORALLY ONCE A DAY NOT-TAKING ARBHAXREVP-VXIN-RBPD-COD [id number] MG CAPSULE 1 CAPSULE NEEDED ORALLY EVERY 4 HRS PRN MIGRAINE MDD=2, NOTES: NONE LATELY NOT-TAKING PERCOCET 5-325 MG TABLET 1 -2 TABLET NEEDED ORALLY EVERY 6 HRS PRN PAIN MDD=6, NOTES: 07/04/17 NOT-TAKING PERCOCET 5-325 MG TABLET 1 TABLET NEEDED ORALLY EVERY 4 HRS PRN PAIN MDD=6, NOTES: 07/06/17 0530 NOT-TAKING GABAPENTIN 400 MG CAPSULE 1 CAPSULE ORALLY THREE TIMES A DAY NOT-TAKING RASPBERRY KETONES 100 MG CAPSULE 1 DROP ORALLY BID NOT-TAKING AZITHROMYCIN 250 MG TABLET 2 TABLETS ON THE FIRST DAY, THEN 1 TABLET DAILY FOR 4 DAYS ORALLY ONCE A DAY NOT-TAKING VICTOZA 18 MG/3ML SOLUTION PEN-INJECTOR 0.2 ML SUBCUTANEOUS ONCE A DAY MEDICATION LIST REVIEWED AND RECONCILED WITH THE PATIENT PAST MEDICAL HISTORY BIPOLAR DISORDER-MANAGED BY DR. 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, INSULIN REQUIRING HYPOTHYROIDISM HYPERLIPIDEMIA 2B OBESITY, MORBID NONALCOHOLIC FATTY LIVER DISEASE-SEEN DIET FEBRUARY 2006 ULTRASOUND ANEMIA, IRON DEFICIENCY-PATIENT REFUSES ENDOSCOPY EARLY MENOPAUSE AT AGE 42 ALLERGIES PENICILLIN (FOR ALLERGIES USE ONLY): DEADLY: ALLERGY AMOXICILLIN: DEADLY: ALLERGY TEGRETOL: DEADLY: ALLERGY CLARITIN: SOB: ALLERGY NIASPAN: HIVES BACLOFEN: HALLUCINATIONS MOBIC: SEVERE MIGRAINES: SIDE EFFECTS CLINDAMYCIN HCL: ANAPHYLAXIS: ALLERGY CYMBALTA: SEVERE NAUEA/VOMITING, INCREASE INTENSITY OF MIGRAINE: SIDE EFFECTS GABAPENTIN: NUMBNESS: SIDE EFFECTS OXYCODONE: ANAPHYLAXIS: ALLERGY SURGICAL HISTORY R BREAST BX. 12/26 ARTHROSCOPIS KNEE SURGERY - L 1984 C-SECTIONS 1987, SOCIAL HISTORY GENERAL: TOBACCO USE ARE YOU A:CURRENT SMOKER ARE YOU INTERESTED IN QUITTING?NOT READY TO QUIT COUNSELED THE PATIENT ON SMOKING EFFECTS, EDUCATION [id number]/17/2017 EDUCATION MATERIAL PRINTED OFF HOW MANY CIGARETTES A DAY DO YOU SMOKE?11-20 HOW SOON AFTER YOU WAKE UP DO YOU SMOKE YOUR FIRST CIGARETTE?WITHIN 5 MIN HOW OFTEN DO YOU SMOKE CIGARETTES?EVERY DAY PATIENT COUNSELED ON THE DANGERS OF TOBACCO USE AND URGED TO QUIT:08/03/2017 BMI CARE GOAL FOLLOW-UP ABOVE NORMAL BMI FOLLOW-UPDIETARY NEEDS EDUCATION ALCOHOL SCREENING DID YOU HAVE A DRINK CONTAINING ALCOHOL IN THE PAST YEAR?NO POINTS0 INTERPRETATIONNEGATIVE CAFFEINE CAFFEINE USE?YES OCCUPATION: DISABLED. DIET: CARBOHYDRATE CONTROLLED. EXERCISE: NO REGULAR EXERCISE. MARITAL STATUS: .. WORSHIP [id number] DENOMINATIONAL LANGUAGE LANGUAGES SPOKEN:[id number] EDUCATION LEVEL OF EDUCATION:FINISHED COLLEGE LEARNING BARRIERS / SPECIAL NEEDS CHANGE FROM LAST VISIT?NO BARRIERS TO LEARNING?NO HEARING IMPAIRED?NO VISION IMPAIRED?YES :CORRECTIVE LENSES COGNITIVELY IMPAIRED?NO READINESS TO LEARN?YES LEARNING PREFERENCES?NO LEARNING CAPABILITIES PRESENT?YES EMOTIONAL BARRIERS?NO SPECIAL DEVICES?NO MANAGER ENGLISH NEEDED?NO PAIN CLINIC PFS, CLERGY, PUBLIC HEALTH REFERRALS PFS REFERRAL NEEDED?NO CLERGY REFERRAL NEEDED?NO PUBLIC HEALTH REFERRAL NEEDED?NO HAS THE PATIENT BEEN EDUCATED REGARDING HIS/HER PLAN OF CARE?YES HAS THE PATIENT BEEN EDUCATED REGARDING PAIN, THE RISK FOR PAIN, THE IMPORTANCE OF EFFECTIVE PAIN MANAGEMENT, AND THE PAIN ASSESSMENT PROCESS?YES PATIENT: ____. TRAVEL OUTSIDE US: NO. DOMESTIC VIOLENCE DO YOU FEEL SAFE IN YOUR ENVIRONMENT?YES HOSPITALIZATION/MAJOR DIAGNOSTIC PROCEDURE LITHIUM TOXICITY (PEAK 2.59) REQUIRING DIALYSIS X1 SECONDARY TO ACUTE RENAL FAILURE (PEAK CR 2.1-11/2011 IT WAS 1.0) SECONDARY TO DEHYDRATION FROM VIRAL GASTRITIS, ACEI/DIURETIC USE-[facility] 01/21- REVIEW OF SYSTEMS REVIEWED BY: PROVIDER: SYED SOUZA . CONSTITUTIONAL: ANY CHANGE IN YOUR MEDICAL CONDITION? NO . CHILLS NO . FEVER NO . INFECTION: DO YOU HAVE NEW INFECTIONS? NO . DO YOU HAVE HISTORY OF MRSA? NO . MUSCULOSKELETAL: ANY NEW PATTERNS OF PAIN OR NUMBNESS? YES, LEFT LEG NUMBNESS . GASTROENTEROLOGY: ANY NEW CHANGE IN BOWEL CONTROL? NO . GENITOURINARY: ANY NEW CHANGE IN BLADDER CONTROL? NO . IS THERE A CHANCE YOU COULD BE ? NO . HEMATOLOGY/LYMPH: DO YOU TAKE ANY BLOOD THINNERS? (FOR EXAMPLE- COUMADIN, PLAVIX, AGGRENOX, PLATEL, PRADAXA, OR XARELTO) NO . WHEN WAS YOUR LAST DOSE? DATE: TIME: . NEUROLOGY: HAVE YOU FALLEN IN THE PAST 6 MONTHS? YES, PT STATES SHE FELL DOWN STAIRS, PT DENIES SEEKING MEDICAL ATTENTION . ANY NEW EXTREMITY NUMBNESS OR WEAKNESS? NO . CARDIOLOGY: DO YOU HAVE A PACEMAKER OR DEFIBRILLATOR? NO . RESPIRATORY: HAVE YOU BEEN SICK IN THE PAST WEEK? NO . FEVER NO . FLU LIKE SYMPTOMS? NO . COUGH NO . INTEGUMENTARY: DO YOU HAVE ANY RASHES OR OPEN SORES? NO . ALLERGIC/IMMUNO: ARE YOU ALLERGIC TO SHELLFISH OR IV DYE? NO . ANY NEW ALLERGIES? NO . PSYCHIATRIC: DO YOU HAVE THOUGHTS OF HURTING YOURSELF OR SOMEONE ELSE? NO . ARE YOU ABUSED, NEGLECTED, OR IN AN UNSAFE ENVIRONMENT? NO . ENDOCRINOLOGY: ARE YOU DIABETIC? NO . OTHER: DO YOU NEED ANY PRESCRIPTIONS? NO . IF YES, PLEASE LIST: ____ . ANY NEW PROBLEMS WITH YOUR MEDICATIONS? YES, PT STATES SHE WAS TAKEN OFF OF GABAPENTIN AND OXYCODONE. PT STARTED ON HYDROCODONE FROM AN OLD SCRIPT. . WHEN DID YOU LAST EAT? ____ . WHEN DID YOU LAST DRINK? ____ . WHAT DID YOU LAST DRINK? ____ . NAME OF PERSON DRIVING YOU HOME? ____ . DO YOU HAVE ANY OTHER QUESTIONS OR CONCERNS NO . VITAL SIGNS WT 179 LBS, HT 64 IN, BMI 30.72 INDEX, BP 158/97 MM HG, HR 102 /MIN, RR 18 /MIN, TEMP 99.3 F, OXYGEN SAT % 96%, NA INITIALS AW 1500, REVIEWED BY: EM. EXAMINATION GENERAL EXAMINATION: PSYCHALERT , ORIENTED X 3 . LUNGS:LUNG SOUNDS ARE CLEAR. HEART:HEART RATE REGULAR. MUSCULOSKELETAL:MUSCLE STRENGTH TESTING 5/5 BILATERAL UPPER AND LOWER EXTREMITIES.. VERY SLOW TO RISE TO STANDING POSITION. POSTURE STOOPED. GAIT SLOW. , TRIGGER POINTS AND TIGHT FIBROUS BANDS:, ELICITED WITH PALPATION OVER LUMBAR PARASPINOUS MUSCLES AND ACROSS THE SACRUM RIGHT GREATER THAN LEFT. POINT TENDERNESS OVER RIGHT SACRAL ILIAC JOINT. POSITIVE WILL SIGN. . ASSESSMENTS MYALGIA - M79.1 (PRIMARY) LUMBAR DISC DISPLACEMENT WITHOUT MYELOPATHY - M51.26 CHRONIC PRESCRIPTION OPIATE USE - Z79.899 FIBROMYALGIA - M79.7 TREATMENT MYALGIA REFILL HYDROCODONE-ACETAMINOPHEN TABLET, 5-325 MG, 1 TABLET NEEDED, ORALLY, EVERY 6 HRS MDD4, 30 DAY(S), 120, REFILLS 0 NOTES: UTOX TODAYUPDATE NARCOTIC AGREEMENT. CLINICAL NOTES: ISTOP REGISTRY REVIEWED AND DEMNOSTRATES COMPLLIANCE. (REF # [id number]) BRINGS IN MEDICATIONS WHICH IS APPROPRIATE FOR WHAT WAS DISPENSED. RECENT URINE TOXICOLOGY REVIEWED. NO UNAUTHORIZED MEDICATIONS. NO ILLICIT SUBSTANCES AND PRESCRIBED MEDICATIONS WERE PRESENT. PROCEDURE CODES FA211 ESTABILISHED PATIENT [facility] CHARGE DISPOSITION & COMMUNICATION FOLLOW UP AFTER PROCEDURE (REASON: BACK PAIN) ELECTRONICALLY SIGNED BY SAQIB ALEJO ON 09/05/2017 AT 09:16 AM EST DISCLAIMER : THIS IS A VISIT SUMMARY EXTRACTED FROM THE [employer] CHART. IT IS NOT A COPY OF THE [facility] [employer] PROGRESS NOTE. LETHA
== END ==
LOC: M PAIN 15:00
PROVIDERS: ATTEND Nurse Practitioner Family
DX: M79.1 Myalgia (principal); M51.26 Other intervertebral disc displacement, lumbar region; G89.29 Other chronic pain; I10 Essential (primary) hypertension; E11.8 Type 2 diabetes mellitus with unspecified complications; F17.210 Nicotine dependence, cigarettes, uncomplicated; Z79.891 Long term (current) use of opiate analgesic; Z79.899 Other long term (current) drug therapy; Z79.4 Long term (current) use of insulin; Z88.0 Allergy status to penicillin; Z88.1 Allergy status to other antibiotic agents; Z88.8 Allergy status to other drugs, medicaments and biological substances

== ENCOUNTER → 2017-09-28 | Outpatient (REF) | payer OTHER ==
[2017-09-28 15:32] LABS: BASO # 0.1 10^3/uL (0.0-0.2); BASO % 0.3 % (0.0-1.0); EOS # 0.2 10^3/uL (0.0-0.50); EOS % 1.3 % (0.0-3.0); IMMATURE GRANULOCYTE % 0.5 % (0-0); LYMPH # 3.9 10^3/uL (1.5-4.5); LYMPH % 26.5 % (24.0-44.0); MEAN CORPUSCULAR HEMOGLOBIN 28.5 pg (27.0-33.0); MEAN CORPUSCULAR HGB CONC 31.4 g/dl (32.0-36.5); MONO % 6.6 % (0.0-5.0); NEUTROPHILS # 9.6 10^3/uL (1.8-7.7); NEUTROPHILS % 64.8 % (36.0-66.0); PLATELET COUNT, AUTOMATED 367 10^3/uL (150-450); RED CELL DISTRIBUTION WIDTH 14.9 % (11.5-14.5); WHITE BLOOD COUNT 14.8 10^3/uL (4.0-10.0)
[2017-09-28 16:11] LABS: CALCIUM LEVEL 9.5 MG/DL (8.5-10.1); CREATININE FOR GFR 1.05 MG/DL (0.55-1.02); GLOMERULAR FILTRATION RATE 58.8 (>51); POTASSIUM SERUM 4.7 MEQ/L (3.5-5.1)
== END ==
LOC: M SFHCPLAZ 14:06
PROVIDERS: ATTEND Physician Assistant Medical
DX: E11.69 Type 2 diabetes mellitus with other specified complication (principal); J04.2 Acute laryngotracheitis

== ENCOUNTER → 2017-10-28 | Outpatient (CLI) | payer OTHER | LOC: M PAIN 09:30 | DX: M51.26 Other intervertebral disc displacement, lumbar region (principal); M79.7 Fibromyalgia; I10 Essential (primary) hypertension; E11.9 Type 2 diabetes mellitus without complications; E03.9 Hypothyroidism, unspecified; E78.5 Hyperlipidemia, unspecified; F31.9 Bipolar disorder, unspecified; J44.9 Chronic obstructive pulmonary disease, unspecified; F17.210 Nicotine dependence, cigarettes, uncomplicated; F10.21 Alcohol dependence, in remission; D50.8 Other iron deficiency anemias; E66.01 Morbid (severe) obesity due to excess calories; Z68.31 Body mass index [BMI] 31.0-31.9, adult; Z79.4 Long term (current) use of insulin; Z79.51 Long term (current) use of inhaled steroids; Z79.891 Long term (current) use of opiate analgesic; Z79.899 Other long term (current) drug therapy; Z88.0 Allergy status to penicillin; Z88.1 Allergy status to other antibiotic agents; Z88.6 Allergy status to analgesic agent; Z88.5 Allergy status to narcotic agent; Z88.8 Allergy status to other drugs, medicaments and biological substances | CPT/HCPCS: G0463 ==

== ENCOUNTER → 2017-11-26 | Outpatient (CLI) | payer OTHER | LOC: M PAIN 13:30 | DX: Z53.29 Procedure and treatment not carried out because of patient's decision for other reasons (principal) ==

== ENCOUNTER → 2017-12-20 | Outpatient (CLI) | payer OTHER | LOC: M PAIN 10:30 | DX: M79.1 Myalgia (principal); M51.26 Other intervertebral disc displacement, lumbar region; M79.7 Fibromyalgia; I10 Essential (primary) hypertension; E11.9 Type 2 diabetes mellitus without complications; E03.9 Hypothyroidism, unspecified; E78.5 Hyperlipidemia, unspecified; J44.9 Chronic obstructive pulmonary disease, unspecified; F17.210 Nicotine dependence, cigarettes, uncomplicated; Z79.4 Long term (current) use of insulin; Z79.891 Long term (current) use of opiate analgesic; Z79.899 Other long term (current) drug therapy; Z88.0 Allergy status to penicillin; Z86.39 Personal history of other endocrine, nutritional and metabolic disease | CPT/HCPCS: G0463 ==

== ENCOUNTER → 2017-12-24 | Outpatient (CLI) | payer OTHER ==
[~2017-12-24] MED LIST changes: -/LOR25TA PO; -/RALO60TA PO; -/RISPSOL3 GT; -ACET-654 PO; -ACET325S2 PR; -ACTO45TA PO; -ALBU17IN INH; -ALLE60TA69 PO; -ALLI60CA2 PO; -AMLO5TAB2 PO; -ASMA1AER3 IN; -ASPI81TA7 PO; -BABY81CH PO; -BENA25CA2 PO; +BUPIVACAINE HCL 0.25% 10 ML VIAL As Ordered; +BUPIVACAINE HCL 0.25% 30 ML VIAL As Ordered; -BUPR10TASR PO; -BUPR15TA PO; -BUTACAP78 PO; -CALCCHW12 PO; -CETI10TA PO; -COMBVENT INH; -CYCL10TA PO; -DARV100T; -DARV100T PO; -DICL1POW30 PO; -DOCQ100C PO; -EPIP0.3I2 IM; -ETOD400T PO; -FENO160T10 PO; -FENO54TA2 PO; -FERR325T PO; -FERR325T3 PO; -GABA300C2 PO; -GLIP5TAB8 PO; -GLUC1000 PO; -HYDR-3713 PO; -HYDR12.55 PO; -HYDR25TA6 OR; -INSULANT SC; -LEVOTHYROXINE; -LITH300T2 PO; -MOBI15TA PO; -MULTCAP PO; -NIAS10003 PO; -NICO14DI3 TD; -OMEP20CA3 PO; -OMEP40CA2 PO; -PREG100CA PO; -PREG50CA; -PRIN10TA PO; -PROP40SO PO; -RALO1TAB PO; -RISP-4 PO; -RISP1TAB21 PO; -ROBA750T4 PO; -SALMDISK INH; -SERO1TAB PO; -SERO50TA PO; -SIMV10TA2 PO; -SING5CHW PO; -TIZA4TAB PO; -TOPA1TAB PO; -TRAZ100T PO; +TRIAMCINOLONE ACETONIDE SUSP 40 MG/ML VIAL (J3301) As Ordered; -TYLENOL #3 OR; -ULTR50TA PO; -VIT D 2000 PO; -VITA500C24 PO; -WELL200T PO; -ZOCO10TA PO; -[UNRECOGNIZED DRUG - CODE] PO; -[UNRECOGNIZED DRUG - OTHER] INH; -asthmanex INH; -symbicort INH
== END ==
LOC: M PAIN 08:45
DX: M79.1 Myalgia (principal); F32.9 Major depressive disorder, single episode, unspecified; J44.9 Chronic obstructive pulmonary disease, unspecified; I10 Essential (primary) hypertension; E11.9 Type 2 diabetes mellitus without complications; E03.9 Hypothyroidism, unspecified; E78.5 Hyperlipidemia, unspecified; Z79.4 Long term (current) use of insulin; Z79.891 Long term (current) use of opiate analgesic; Z79.899 Other long term (current) drug therapy; Z78.0 Asymptomatic menopausal state; Z88.0 Allergy status to penicillin; Z88.8 Allergy status to other drugs, medicaments and biological substances
CPT/HCPCS: J3301

== ENCOUNTER → 2018-01-28 | Outpatient (CLI) | payer OTHER | LOC: M PAIN 13:30 | DX: G89.29 Other chronic pain (principal); M79.1 Myalgia; M51.26 Other intervertebral disc displacement, lumbar region; F31.9 Bipolar disorder, unspecified; J44.9 Chronic obstructive pulmonary disease, unspecified; J45.20 Mild intermittent asthma, uncomplicated; F17.210 Nicotine dependence, cigarettes, uncomplicated; I10 Essential (primary) hypertension; I87.2 Venous insufficiency (chronic) (peripheral); M51.36 Other intervertebral disc degeneration, lumbar region; E11.9 Type 2 diabetes mellitus without complications; E03.9 Hypothyroidism, unspecified; E78.5 Hyperlipidemia, unspecified; K76.0 Fatty (change of) liver, not elsewhere classified; D50.9 Iron deficiency anemia, unspecified; Z79.84 Long term (current) use of oral hypoglycemic drugs; Z79.899 Other long term (current) drug therapy; Z79.891 Long term (current) use of opiate analgesic; Z88.0 Allergy status to penicillin; Z88.5 Allergy status to narcotic agent; Z88.1 Allergy status to other antibiotic agents; Z88.8 Allergy status to other drugs, medicaments and biological substances | CPT/HCPCS: G0463 ==

== ENCOUNTER → 2018-02-17 | Outpatient (CLI) | payer OTHER, MEDICAID | LOC: M PAIN 09:00 | DX: G89.29 Other chronic pain (principal); M79.1 Myalgia; F31.9 Bipolar disorder, unspecified; J44.9 Chronic obstructive pulmonary disease, unspecified; J45.20 Mild intermittent asthma, uncomplicated; F17.210 Nicotine dependence, cigarettes, uncomplicated; I10 Essential (primary) hypertension; I87.2 Venous insufficiency (chronic) (peripheral); E11.9 Type 2 diabetes mellitus without complications; E03.9 Hypothyroidism, unspecified; E78.5 Hyperlipidemia, unspecified; E66.01 Morbid (severe) obesity due to excess calories; K76.0 Fatty (change of) liver, not elsewhere classified; D50.9 Iron deficiency anemia, unspecified; M51.36 Other intervertebral disc degeneration, lumbar region; R60.0 Localized edema; Z79.4 Long term (current) use of insulin; Z79.891 Long term (current) use of opiate analgesic; Z79.899 Other long term (current) drug therapy; Z88.0 Allergy status to penicillin; Z88.5 Allergy status to narcotic agent; Z88.8 Allergy status to other drugs, medicaments and biological substances | CPT/HCPCS: J3301 ==

== ENCOUNTER → 2018-04-27 | Outpatient (CLI) | payer OTHER | LOC: M PAIN 10:15 | DX: M79.1 Myalgia (principal); M51.26 Other intervertebral disc displacement, lumbar region; F31.9 Bipolar disorder, unspecified; J44.9 Chronic obstructive pulmonary disease, unspecified; F10.10 Alcohol abuse, uncomplicated; I10 Essential (primary) hypertension; E11.9 Type 2 diabetes mellitus without complications; E03.9 Hypothyroidism, unspecified; E78.5 Hyperlipidemia, unspecified; K76.0 Fatty (change of) liver, not elsewhere classified; E66.9 Obesity, unspecified; Z68.30 Body mass index [BMI] 30.0-30.9, adult; Z79.51 Long term (current) use of inhaled steroids; Z79.4 Long term (current) use of insulin; Z79.899 Other long term (current) drug therapy; Z88.0 Allergy status to penicillin; Z88.1 Allergy status to other antibiotic agents; Z88.5 Allergy status to narcotic agent; Z88.6 Allergy status to analgesic agent; Z88.8 Allergy status to other drugs, medicaments and biological substances; Z86.718 Personal history of other venous thrombosis and embolism | CPT/HCPCS: G0463 ==

== ENCOUNTER → 2018-08-17 | Outpatient (REF) | payer OTHER ==
[2018-08-20 14:32] LABS: AMPHETAMINE SCREEN, URINE Negative ng/mL (Cutoff=1000); BARBITURATES SCREEN, URINE Negative ng/mL (Cutoff=200); BENZODIAZEPINES, URINE SCREEN Negative ng/mL (Cutoff=200); CANNABINOID SCREEN, URINE Negative ng/mL (Cutoff=20); COCAINE SCREEN, URINE Negative ng/mL (Cutoff=300); CREATININE, URINE 27.2 mg/dL (20.0-300.0); FENTANYL URINE SCREEN Negative pg/mL (Cutoff=2000); METHADONE, URINE SCREEN Negative ng/mL (Cutoff=300); OPIATE SCREEN, URINE See Final Results ng/mL (Cutoff=300); OPIATES, URINE Negative ng/mL (Cutoff=300); OXYCODONE, SCREEN, URINE Negative ng/mL (Cutoff=100); PCP SCREEN, URINE Negative ng/mL (Cutoff=25); SPECIFIC GRAVITY, URINE 1.008 (.); pH, URINE 6.2 (4.5-8.9)
== END ==
LOC: M SFHCPLAZ 10:31
DX: M51.26 Other intervertebral disc displacement, lumbar region (principal); E11.69 Type 2 diabetes mellitus with other specified complication

== ENCOUNTER → 2018-08-26 | Outpatient (CLI) | payer OTHER | LOC: M PLARAD 07:39 | DX: M51.27 Other intervertebral disc displacement, lumbosacral region (principal); M54.12 Radiculopathy, cervical region; M54.16 Radiculopathy, lumbar region; M79.10 Myalgia, unspecified site; M51.26 Other intervertebral disc displacement, lumbar region; M50.222 Other cervical disc displacement at C5-C6 level; M50.221 Other cervical disc displacement at C4-C5 level; M50.23 Other cervical disc displacement, cervicothoracic region; M47.892 Other spondylosis, cervical region | CPT/HCPCS: 72141 ==

== ENCOUNTER → 2019-02-22 | Outpatient (REF) | payer OTHER, MEDICAID ==
[~2019-02-22] MED LIST changes: +/LOR25TA PO; +ACET-654 PO; +ACET325S2 PR; +ACTO45TA PO; +ALBU17IN INH; +ALLE60TA69 PO; +ALLI60CA2 PO; +AMLO5TAB2 PO; +ASMA1AER3 IN; +ASPI81TA7 PO; +BABY81CH PO; +BENA25CA2 PO; -BUPIVACAINE HCL 0.25% 10 ML VIAL As Ordered; -BUPIVACAINE HCL 0.25% 30 ML VIAL As Ordered; +BUPR10TASR PO; +BUPR15TA PO; +BUTACAP78 PO; +CALCCHW12 PO; +CETI10TA PO; +COMBVENT INH; +CYCL10TA PO; +DARV100T; +DARV100T PO; +DICL1POW30 PO; +DOCQ100C PO; +EPIP0.3I2 IM; +ETOD400T PO; +EVIS1TAB PO; +FENO160T10 PO; +FENO54TA2 PO; +FERR325T PO; +FERR325T3 PO; +GABA300C2 PO; +GLIP5TAB8 PO; +GLUC1000 PO; +HYDR-3713 PO; +HYDR12.55 PO; +HYDR25TA6 OR; +INSULANT SC; +LEVOTHYROXINE; +LITH300T2 PO; +MOBI15TA PO; +MULTCAP PO; +NIAS10003 PO; +NICO14DI3 TD; +OMEP20CA3 PO; +OMEP40CA2 PO; +PREG100CA PO; +PREG50CA; +PRIN10TA PO; +PROP40SO PO; +RALO1TAB PO; +RISP-4 PO; +RISP1SOL15 GT; +RISP1TAB21 PO; +ROBA750T4 PO; +SALMDISK INH; +SERO1TAB PO; +SERO50TA PO; +SIMV10TA2 PO; +SING5CHW PO; +TIZA4TAB PO; +TOPA1TAB PO; +TRAZ100T PO; -TRIAMCINOLONE ACETONIDE SUSP 40 MG/ML VIAL (J3301) As Ordered; +TYLENOL #3 OR; +ULTR50TA PO; +VIT D 2000 PO; +VITA500C24 PO; +WELL200T PO; +ZOCO10TA PO; +[UNRECOGNIZED DRUG - CODE] PO; +[UNRECOGNIZED DRUG - OTHER] INH; +asthmanex INH; +symbicort INH
[2019-02-23 10:47] LABS: CREATININE, URINE 31.1 MG/DL; MALB URINE SIEMENS 44.4 MG/L; MAU/CREAT RATIO 142.7 MCG/MG (0.0-30.0)
== END ==
LOC: M SFHCPLAZ 09:48
PROVIDERS: ATTEND Physician Assistant Medical
DX: E11.69 Type 2 diabetes mellitus with other specified complication (principal)

== ENCOUNTER → 2022-02-18 | Outpatient (CLI) | payer OTHER ==
[~2022-02-18] MED LIST changes: +ALLE180T33 PO; +ASPI81CH33 PO; +ATOR1TAB21 PO; +BASA100I SQ; +BUSP15TA47 PO; +CYCL-707 PO; -CYCL10TA PO; +FENO145T7 PO; +IPRA0.00 INH; +LORA1TAB4 PO; +MAGN250T7 PO; +METF10004 PO; +MIRT-10 PO; +MONT10TA97 PO; +NICO1DIS12 TOP; +OMEP1CAP73 PO; -OMEP20CA3 PO; +OMEP40CA5 PO; +PROP120C PO; +RISP3TAB20 PO; +TOPA100T12 PO; +TRAZ-252 PO; +VALB40CA PO; +VICT18IN PO
[2022-02-18 13:33] LABS: BASO % 0.3 % (0.0-1.0); EOS # 0.1 10^3/uL (0.0-0.5); EOS % 1.3 % (0.0-3.0); HEMATOCRIT 33.4 % (36.0-47.0); HEMOGLOBIN 9.6 g/dl (12.0-15.5); LYMPH # 1.5 10^3/uL (1.5-5.0); LYMPH % 15.6 % (24.0-44.0); MEAN CORPUSCULAR HEMOGLOBIN 23.1 pg (27.0-33.0); MEAN CORPUSCULAR HGB CONC 28.7 g/dl (32.0-36.5); MEAN CORPUSCULAR VOLUME 80.5 fl (80.0-96.0); MONO # 0.7 10^3/uL (0.0-0.8); MONO % 7.5 % (2.0-8.0); NEUTROPHILS # 7.3 10^3/uL (1.5-8.5); PLATELET COUNT, AUTOMATED 388 10^3/uL (150-450); RED BLOOD COUNT 4.15 10^6/uL (4.00-5.40); WHITE BLOOD COUNT 9.7 10^3/uL (4.0-10.0)
[2022-02-18 20:07] LABS: ALBUMIN 3.1 GM/DL (3.2-5.2); ALT/SGPT 17 U/L (12-78); BILIRUBIN,TOTAL 0.2 MG/DL (0.2-1.0); BLOOD UREA NITROGEN 17 MG/DL (7-18); CALCIUM LEVEL 9.8 MG/DL (8.5-10.1); CARBON DIOXIDE LEVEL 25 MEQ/L (21-32); CHLORIDE LEVEL 113 MEQ/L (98-107); CHOLESTEROL LEVEL 173 MG/DL (<200); CHOLESTEROL RISK RATIO 4.675 (<5); CREATININE FOR GFR 0.83 MG/DL (0.55-1.30); FERRITIN 7 NG/ML (8-252); FREE T4 1.09 NG/DL (0.76-1.46); GLOMERULAR FILTRATION RATE > 60.0 (>51); GLUCOSE, FASTING 80 MG/DL (70-100); HDL CHOLESTEROL 37 MG/DL (>40); IRON (FE) 16 UG/DL (50-170); LDL CHOLESTEROL 106 MG/DL (<100); NON-HDL-C 136 MG/DL; POTASSIUM SERUM 4.6 MEQ/L (3.5-5.1); SODIUM LEVEL 144 MEQ/L (136-145); TOTAL PROTEIN 6.2 GM/DL (6.4-8.2); TRIGLYCERIDES LEVEL 148 MG/DL (<150)
[2022-02-18 21:49] LABS: HEMOGLOBIN A1c 5.9 %
== END ==
LOC: M PLALAB 10:45
PROVIDERS: ATTEND Physician Assistant Medical
DX: E11.69 Type 2 diabetes mellitus with other specified complication (principal); E78.2 Mixed hyperlipidemia; I10 Essential (primary) hypertension; D50.8 Other iron deficiency anemias; E03.9 Hypothyroidism, unspecified

== ENCOUNTER → 2022-02-18 | Outpatient (CLI) | payer OTHER | LOC: M LABSMTC 10:30 | PROVIDERS: ATTEND Anesthesiology | DX: Z01.812 Encounter for preprocedural laboratory examination (principal); Z11.52 Encounter for screening for COVID-19 ==

== ENCOUNTER 2022-02-19 06:14 | Day surgery (SDC) | payer OTHER ==
[~2022-02-19] VITALS: Ht 154.9 cm; Wt 68.4 kg
[~2022-02-19 06:14] MED LIST changes: -ADME100I SC; -LORA1TAB4 PO; -MORP1SOL4 PO; -MORP1SOL5 PO
[2022-02-19] MEDS ORDERED: ALBUTEROL SULFATE 2.5 MG/0.5 ML INH NEB SOLN INH ONE ×2 (06:35→09:15)
[2022-02-19] MEDS ORDERED: LIDOCAINE 4% INJ 5ML AMP NEB ONE (06:35)
[2022-02-19] MEDS ORDERED: D5W/0.45% SODIUM CHLORIDE 1,000 ML IV SCH (07:55)
[2022-02-19 08:03] LABS: INR 1.1; PROTHROMBIN TIME 14.6 SECONDS (12.7-14.5)
[2022-02-19 08:04] LABS: PARTIAL THROMBOPLASTIN TIME 29.1 SECONDS (25.9-37.0)
[2022-02-19] MEDS ORDERED: EPINEPHrine 1MG/10ML SYRINGE 1.5IN As Ordered ONE (08:46)
[2022-02-19] MEDS ORDERED: CETACAINE SPRAY 5GM As Ordered ONE (08:56)
[2022-02-19] MEDS ORDERED: fentaNYL 100 MCG/2 ML INJECTION As Ordered ONE (09:10)
[2022-02-19] MEDS ORDERED: ONDANSETRON 4MG/2ML VIAL As Ordered ONE (09:10)
[2022-02-19] MEDS ORDERED: LIDOCAINE 2% 100MG/5ML SDV (FOR ANES.) As Ordered ONE (09:10)
[2022-02-19] MEDS ORDERED: dexameTHASONE 4 MG/ML 1ML VIAL (J1100 PER 1MG) As Ordered ONE (09:10)
[2022-02-19] MEDS ORDERED: SUGAMMADEX SODIUM 500 MG/5 ML VIAL (BRIDION) As Ordered ONE (09:10)
[2022-02-19] MEDS ORDERED: MIDAZOLAM INJ 2MG/2ML VIAL (J2250 PER 1MG) As Ordered ONE (09:11)
[2022-02-19] MEDS ORDERED: ROCURONIUM BROMIDE 50 MG/5 ML VIAL As Ordered ONE (09:11)
[2022-02-19] MEDS ORDERED: propofoL 200 MG/20 ML VIAL As Ordered ONE (09:11)
[2022-02-19] MEDS ORDERED: PERCOCET 5MG/325MG TAB PO PRN (09:15)
[2022-02-19] MEDS ORDERED: fentaNYL 100 MCG/2 ML INJECTION IV PRN (09:15)
[2022-02-19] MEDS ORDERED: ONDANSETRON 4MG/2ML VIAL IV PRN (09:15)
[2022-02-19] MEDS ORDERED: LR 1,000 ML IV SCH (09:15)
[2022-02-19 09:50] VITALS: BP 141/86
[2022-02-19] MEDS ORDERED: LORA1TAB4 PO (10:04)
[2022-02-20] MEDS ORDERED: IPRA0.00 INH (14:29)
[2022-02-20] MEDS ORDERED: MORP1SOL4 PO (14:29)
[2022-02-20] MEDS ORDERED: MORP1SOL5 PO (15:01)
== END 2022-02-19 09:53 | disposition home or self-care (01) ==
LOC: M SDC 06:14
PROVIDERS: ATTEND Internal Medicine Pulmonary Disease
DX: C34.02 Malignant neoplasm of left main bronchus (principal); J44.9 Chronic obstructive pulmonary disease, unspecified; F17.200 Nicotine dependence, unspecified, uncomplicated; E11.9 Type 2 diabetes mellitus without complications; I10 Essential (primary) hypertension; F31.9 Bipolar disorder, unspecified; F25.9 Schizoaffective disorder, unspecified; E78.5 Hyperlipidemia, unspecified; R63.4 Abnormal weight loss; J45.909 Unspecified asthma, uncomplicated; R06.02 Shortness of breath; G47.30 Sleep apnea, unspecified; Z88.0 Allergy status to penicillin; Z88.1 Allergy status to other antibiotic agents; Z88.8 Allergy status to other drugs, medicaments and biological substances; Z79.899 Other long term (current) drug therapy; Z79.84 Long term (current) use of oral hypoglycemic drugs; Z79.82 Long term (current) use of aspirin; Z79.4 Long term (current) use of insulin; Z79.52 Long term (current) use of systemic steroids; Z79.51 Long term (current) use of inhaled steroids; Z86.73 Personal history of transient ischemic attack (TIA), and cerebral infarction without residual deficits
CPT/HCPCS: 31625; 36415; 71045; 85610; 85730; 88305; 88341; 88342; J0171; J1100; J2250; J2405; J3010

== ENCOUNTER → 2022-02-19 | Outpatient (CLI) | payer OTHER ==
[~2022-02-19] MED LIST changes: +ADME100I SC; +MORP1SOL4 PO; +MORP1SOL5 PO
== END ==
LOC: M ONCR 09:59
PROVIDERS: ATTEND General Practice
DX: C34.01 Malignant neoplasm of right main bronchus (principal); C34.02 Malignant neoplasm of left main bronchus; F17.210 Nicotine dependence, cigarettes, uncomplicated; R05.9 Cough, unspecified; R06.09 Other forms of dyspnea; Z79.82 Long term (current) use of aspirin; Z79.84 Long term (current) use of oral hypoglycemic drugs; Z79.899 Other long term (current) drug therapy; Z88.0 Allergy status to penicillin; Z88.1 Allergy status to other antibiotic agents; Z88.8 Allergy status to other drugs, medicaments and biological substances

== ENCOUNTER 2022-02-26 13:30 | Outpatient (RCR) | payer OTHER ==
[~2022-02-26 13:30] MED LIST changes: +LORA1TAB4 PO; +MORP1SOL4 PO; +MORP1SOL5 PO
[2022-03-03] MEDS ORDERED: ADME100I SC (10:19)
[2022-03-17] MEDS ORDERED: PROC10TA5 PO (08:52)
== END 2022-03-17 ==
LOC: M ONCR 13:30
PROVIDERS: ATTEND General Practice
DX: C34.01 Malignant neoplasm of right main bronchus (principal)
CPT/HCPCS: 77290; 77295; 77300; 77334; 77336; 77386; 77387; 77412; G0463

== ENCOUNTER → 2022-03-30 | Outpatient (CLI) | payer OTHER ==
[~2022-03-30] MED LIST changes: +ADME100I SC; +PROC10TA5 PO; +PROHANCE 279.3MG/ML 15ML VIAL ONE
== END ==
LOC: M PLAIMG 10:46
PROVIDERS: ATTEND General Practice
DX: C34.01 Malignant neoplasm of right main bronchus (principal); I67.82 Cerebral ischemia
CPT/HCPCS: 70553; A9576

== ENCOUNTER → 2022-04-14 | Outpatient (POV) | payer OTHER ==
[~2022-04-14] VITALS: Ht 154.9 cm; Wt 68.1 kg
[~2022-04-14] MED LIST changes: -PROHANCE 279.3MG/ML 15ML VIAL ONE
[2022-04-14 09:05] VITALS: BP 165/86
== END ==
LOC: M IRPOV 08:55
PROVIDERS: ATTEND Radiology Diagnostic Radiology
DX: Z45.2 Encounter for adjustment and management of vascular access device (principal); Z88.0 Allergy status to penicillin; Z88.1 Allergy status to other antibiotic agents; Z88.8 Allergy status to other drugs, medicaments and biological substances

== ENCOUNTER 2022-05-04 15:43 | Inpatient (IN) | payer OTHER ==
[~2022-05-04] VITALS: Ht 154.9 cm; Wt 69.8 kg
[~2022-05-04 15:43] MED LIST changes: -ADV100INH INH; -BACITAB PO; -CYCL5TAB PO; -FEXO-112 PO; -LEVO750T13 PO; -NICO21DI38 TD; -RISP-10 PO; -SODI650T PO; -TOPI100T9 PO
[2022-05-04 20:46] LABS: HEMATOCRIT 27.9 % (36.0-47.0); HEMOGLOBIN 8.6 g/dl (12.0-15.5); MEAN CORPUSCULAR HEMOGLOBIN 25.4 pg (27.0-33.0); MEAN CORPUSCULAR HGB CONC 30.8 g/dl (32.0-36.5); MEAN CORPUSCULAR VOLUME 82.3 fl (80.0-96.0); RED BLOOD COUNT 3.39 10^6/uL (4.00-5.40)
[2022-05-04 20:51] LABS: PLATELET COUNT, AUTOMATED 82 10^3/uL (150-450); WHITE BLOOD COUNT 1.9 10^3/uL (4.0-10.0)
[2022-05-04 21:14] LABS: ACETAMINOPHEN LEVEL < 2.0 UG/ML (10.0-30.0); ALT/SGPT 12 U/L (12-78); BILIRUBIN,DIRECT < 0.1 MG/DL (0.0-0.2); BILIRUBIN,TOTAL 0.2 MG/DL (0.2-1.0); BLOOD UREA NITROGEN 13 MG/DL (7-18); CALCIUM LEVEL 9.1 MG/DL (8.5-10.1); CARBON DIOXIDE LEVEL 21 MEQ/L (21-32); CHLORIDE LEVEL 112 MEQ/L (98-107); GLOMERULAR FILTRATION RATE > 60.0 (>51); GLUCOSE, FASTING 60 MG/DL (70-100); POTASSIUM SERUM 4.1 MEQ/L (3.5-5.1); SALICYLATE LEVEL 6.2 MG/DL (5.0-30.0); SODIUM LEVEL 141 MEQ/L (136-145); TOTAL PROTEIN 6.8 GM/DL (6.4-8.2)
[2022-05-04 21:21] LABS: BASOPHILS 1 % (0-1); LYMPHOCYTES 46 % (16-44); MONOCYTES 12 % (0-5); NEUTROPHILS 40 % (28-66)
[2022-05-04 21:22] LABS: ANISOCYTOSIS 3+; HYPOCHROMASIA 1+
[2022-05-04 21:23] LABS: PLATELET ESTIMATE DECREASED (NORMAL)
[2022-05-04] MEDS ORDERED: PROHANCE 279.3MG/ML 15ML VIAL As Ordered ONE (21:59)
[2022-05-04] MEDS ORDERED: PROHANCE 279.3MG/ML 5ML VIAL As Ordered ONE (21:59)
[2022-05-04] MEDS ORDERED: RISP-10 PO (23:02)
[2022-05-04] MEDS ORDERED: FEXO-112 PO (23:02)
[2022-05-04] MEDS ORDERED: TOPI100T9 PO (23:02)
[2022-05-04 23:50] LABS: RSV AMPLIFICATION NEGATIVE (NEGATIVE)
[2022-05-05] MEDS ORDERED: GLUCOSE 4GM CHEW TABLET PO PRN (00:50)
[2022-05-05] MEDS ORDERED: ALBUTEROL SULFATE 2.5 MG/0.5 ML INH NEB SOLN NEB PRN (00:50)
[2022-05-05] MEDS ORDERED: DEXTROSE 50% 50 ML SYRINGE IV PRN (00:50)
[2022-05-05] MEDS ORDERED: GLUCAGON INJ 1MG VIAL SC PRN (00:50)
[2022-05-05] MEDS ORDERED: NS 1,000 ML IV ONE ×2 (02:00→03:00)
[2022-05-05 04:05] VITALS: BP 170/110
[2022-05-05] MEDS: NS 1,000 ML IV SCH ×2 (04:56→13:40)
[2022-05-05] MEDS: LevoFLOXacin IV 750 MG in IV 1 EA IV SCH (04:59)
[2022-05-05 05:08] VITALS: BP 160/102
[2022-05-05 06:24] VITALS: BP 180/110
[2022-05-05 06:46] LABS: EOS % 1.2 % (0.0-3.0); HEMOGLOBIN 7.9 g/dl (12.0-15.5); LYMPH # 0.5 10^3/uL (1.5-5.0); LYMPH % 31.7 % (24.0-44.0); MEAN CORPUSCULAR HEMOGLOBIN 24.8 pg (27.0-33.0); MEAN CORPUSCULAR HGB CONC 30.4 g/dl (32.0-36.5); MEAN CORPUSCULAR VOLUME 81.5 fl (80.0-96.0); MONO # 0.3 10^3/uL (0.0-0.8); MONO % 19.8 % (2.0-8.0); NEUTROPHILS % 47.3 % (36.0-66.0); RED BLOOD COUNT 3.19 10^6/uL (4.00-5.40); WHITE BLOOD COUNT 1.7 10^3/uL (4.0-10.0)
[2022-05-05] MEDS: INSULIN LISPRO (NovoLOG) PER UNIT SC SCH ×3 (07:30→18:17)
[2022-05-05 07:36] LABS: NEUTROPHILS # 0.8 10^3/uL (1.5-8.5); PLATELET COUNT, AUTOMATED 74 10^3/uL (150-450)
[2022-05-05 07:40] VITALS: BP 172/94
[2022-05-05 09:12] LABS: CHOLESTEROL RISK RATIO 4.703 (<5)
[2022-05-05] MEDS: ASPIRIN 81MG ENTERIC TABLET PO SCH (09:19)
[2022-05-05] MEDS: LOSARTAN 25 MG TAB PO SCH ×2 (09:20→20:00)
[2022-05-05] MEDS ORDERED: NICO21DI38 TD (10:30)
[2022-05-05] MEDS ORDERED: ADV100INH INH (10:30)
[2022-05-05] MEDS ORDERED: FENO160T10 PO (10:30)
[2022-05-05] MEDS ORDERED: HOME MED LIST COMPLETE! XX SCH (10:35)
[2022-05-05 14:00] VITALS: BP 160/98
[2022-05-05] MEDS ORDERED: METOPROLOL TART 25 MG TABLET PO ONE (15:00)
[2022-05-05] MEDS ORDERED: ISOVUE-370 76% 100ML VIAL As Ordered ONE (16:34)
[2022-05-05] MEDS: METOPROLOL TART 25 MG TABLET PO SCH (18:17)
[2022-05-05] MEDS: ADVAIR HFA 45/21MCG INHALER INH SCH (20:00)
[2022-05-05] MEDS: IPRATROPIUM 0.5MG/ALBUTEROL 2.5MG INH SOL UD 3ML (DUONEB) INH SCH (20:00)
[2022-05-05] MEDS: ACETAMINOPHEN TAB 650MG DOSE (2X325MG) PO PRN (20:00)
[2022-05-05] MEDS ORDERED: LEVEMIR (INSULIN DETEMIR) 1 UNITS/0.01ML SC SCH (21:00)
[2022-05-05] MEDS ORDERED: CYCLOBENZAPRINE 10MG TABLET PO SCH (21:00)
[2022-05-05 21:37] VITALS: BP 130/80
[2022-05-05] MEDS ORDERED: traZODone 50 MG TAB PO ONE (21:40)
[2022-05-05] MEDS ORDERED: MIRTAZAPINE 15 MG TAB PO ONE (21:40)
[2022-05-05] MEDS ORDERED: NICOTINE 21MG/24HR 1 EA TRANSDERMAL TD PRN (21:40)
[2022-05-05] MEDS ORDERED: PROCHLORPERAZINE 5MG TAB PO PRN (21:40)
[2022-05-05] MEDS ORDERED: risperiDONE 3 MG TAB PO ONE (21:40)
[2022-05-05] MEDS: TOPIRAMATE (TopAMAX) 25 MG TAB PO SCH (22:39)
[2022-05-05] MEDS: busPIRone 5 MG TAB PO SCH (22:39)
[2022-05-05] MEDS: TOPIRAMATE (TopAMAX) 100 MG TAB PO SCH (22:39)
[2022-05-05] MEDS: OMEPRAZOLE 20MG CAP PO SCH (22:39)
[2022-05-06] VITALS (8 sets, daily range): BP systolic 103–152; BP diastolic 69–90
[2022-05-06] MEDS: METOPROLOL TART 25 MG TABLET PO SCH ×2 (01:19→05:45)
[2022-05-06] MEDS: ACETAMINOPHEN TAB 650MG DOSE (2X325MG) PO PRN ×3 (01:20→18:32)
[2022-05-06] MEDS: LevoFLOXacin IV 750 MG in IV 1 EA IV SCH (05:52)
[2022-05-06 06:09] LABS: HEMATOCRIT 26.4 % (36.0-47.0); HEMOGLOBIN 7.9 g/dl (12.0-15.5); MEAN CORPUSCULAR HEMOGLOBIN 24.7 pg (27.0-33.0); MEAN CORPUSCULAR HGB CONC 29.9 g/dl (32.0-36.5); MEAN CORPUSCULAR VOLUME 82.5 fl (80.0-96.0); PLATELET COUNT, AUTOMATED 100 10^3/uL (150-450); WHITE BLOOD COUNT 1.5 10^3/uL (4.0-10.0)
[2022-05-06 06:31] LABS: BLOOD UREA NITROGEN 12 MG/DL (7-18); CALCIUM LEVEL 9.5 MG/DL (8.5-10.1); CARBON DIOXIDE LEVEL 21 MEQ/L (21-32); CHLORIDE LEVEL 117 MEQ/L (98-107); CREATININE FOR GFR 0.82 MG/DL (0.55-1.30); GLOMERULAR FILTRATION RATE > 60.0 (>51); GLUCOSE, FASTING 57 MG/DL (70-100); POTASSIUM SERUM 4.7 MEQ/L (3.5-5.1); SODIUM LEVEL 144 MEQ/L (136-145)
[2022-05-06 06:50] LABS: ANISOCYTOSIS 3+; ATYPICAL LYMPH 1 % (0-5); EOSINOPHILS 2 % (0-3); LYMPHOCYTES 49 % (16-44); MONOCYTES 15 % (0-5); NEUTROPHILS 33 % (28-66); OVALOCYTES 1+; PLATELET ESTIMATE DECREASED (NORMAL)
[2022-05-06] MEDS: INSULIN LISPRO (NovoLOG) PER UNIT SC SCH ×3 (07:05→16:43)
[2022-05-06] MEDS: IPRATROPIUM 0.5MG/ALBUTEROL 2.5MG INH SOL UD 3ML (DUONEB) INH SCH ×4 (07:55→19:40)
[2022-05-06] MEDS: ADVAIR HFA 45/21MCG INHALER INH SCH ×2 (07:57→19:40)
[2022-05-06] MEDS: MORPHINE 10MG/0.5ML ORAL CONCENTRATE SOLUTION U/D PO PRN ×3 (08:13→21:52)
[2022-05-06] MEDS: FEXOFENADINE 60MG TAB PO SCH (08:13)
[2022-05-06] MEDS: OMEPRAZOLE 20MG CAP PO SCH ×2 (08:14→21:50)
[2022-05-06] MEDS: ASPIRIN 81MG ENTERIC TABLET PO SCH (08:14)
[2022-05-06] MEDS: busPIRone 5 MG TAB PO SCH ×2 (08:14→21:50)
[2022-05-06] MEDS: TOPIRAMATE (TopAMAX) 100 MG TAB PO SCH ×2 (08:14→21:51)
[2022-05-06] MEDS: MONTELUKAST 10 MG TAB PO SCH (08:14)
[2022-05-06] MEDS: LOSARTAN 25 MG TAB PO SCH (08:14)
[2022-05-06] MEDS: TOPIRAMATE (TopAMAX) 25 MG TAB PO SCH ×2 (08:14→21:51)
[2022-05-06] MEDS ORDERED: ATORVASTATIN 20 MG TAB PO SCH (09:00)
[2022-05-06] MEDS ORDERED: FILGRASTIM 300 MCG/0.5 ML SYRINGE **SC ADMINISTRATION ONLY SC SCH (09:00)
[2022-05-06] MEDS ORDERED: PROPRANOLOL 60 MG LA CAP PO SCH (09:00)
[2022-05-06 09:44] LABS: BASO % 0.7 % (0.0-1.0); LYMPH # 0.7 10^3/uL (1.5-5.0); LYMPH % 47.3 % (24.0-44.0); MONO # 0.3 10^3/uL (0.0-0.8); MONO % 20.7 % (2.0-8.0); NEUTROPHILS % 29.3 % (36.0-66.0)
[2022-05-06 09:46] LABS: NEUTROPHILS # 0.4 10^3/uL (1.5-8.5)
[2022-05-06] MEDS: MIDODRINE 5 MG TAB PO SCH ×2 (12:05→15:46)
[2022-05-06 16:55] LABS: HEMATOCRIT 29.7 % (36.0-47.0); HEMOGLOBIN 9.2 g/dl (12.0-15.5)
[2022-05-06] MEDS ORDERED: traZODone 50 MG TAB PO PRN (21:00)
[2022-05-06] MEDS ORDERED: LEVEMIR (INSULIN DETEMIR) 1 UNITS/0.01ML SC SCH (21:00)
[2022-05-06] MEDS ORDERED: risperiDONE 3 MG TAB PO SCH (21:00)
[2022-05-06] MEDS ORDERED: MIRTAZAPINE 15 MG TAB PO SCH (21:00)
[2022-05-06] MEDS ORDERED: LIDOCAINE 5% (LIDODERM) PATCH TD PRN (22:20)
[2022-05-06] MEDS ORDERED: CYCLOBENZAPRINE 10MG TABLET PO ONE (23:20)
[2022-05-07] MEDS: MORPHINE 10MG/0.5ML ORAL CONCENTRATE SOLUTION U/D PO PRN ×3 (02:39→15:53)
[2022-05-07] MEDS: ACETAMINOPHEN TAB 650MG DOSE (2X325MG) PO PRN ×2 (02:39→13:56)
[2022-05-07 06:00] VITALS: BP 125/81
[2022-05-07] MEDS ORDERED: LevoFLOXacin 750 MG TABLET PO SCH (06:00)
[2022-05-07 06:38] LABS: HEMATOCRIT 31.3 % (36.0-47.0); HEMOGLOBIN 9.8 g/dl (12.0-15.5); MEAN CORPUSCULAR HEMOGLOBIN 26.6 pg (27.0-33.0); MEAN CORPUSCULAR HGB CONC 31.3 g/dl (32.0-36.5); MEAN CORPUSCULAR VOLUME 85.1 fl (80.0-96.0); PLATELET COUNT, AUTOMATED 126 10^3/uL (150-450); RED BLOOD COUNT 3.68 10^6/uL (4.00-5.40); WHITE BLOOD COUNT 3.7 10^3/uL (4.0-10.0)
[2022-05-07 07:16] LABS: BLOOD UREA NITROGEN 15 MG/DL (7-18); CALCIUM LEVEL 9.3 MG/DL (8.5-10.1); CARBON DIOXIDE LEVEL 19 MEQ/L (21-32); CHLORIDE LEVEL 114 MEQ/L (98-107); GLOMERULAR FILTRATION RATE > 60.0 (>51); GLUCOSE, FASTING 101 MG/DL (70-100); POTASSIUM SERUM 4.5 MEQ/L (3.5-5.1); SODIUM LEVEL 141 MEQ/L (136-145)
[2022-05-07 07:19] LABS: ATYPICAL LYMPH 2 % (0-5); BASOPHILS 2 % (0-1); EOSINOPHILS 1 % (0-3); GIANT PLATELETS 1+; LYMPHOCYTES 28 % (16-44); MONOCYTES 16 % (0-5); NEUTROPHILS 43 % (28-66); PLATELET ESTIMATE DECREASED (NORMAL)
[2022-05-07 07:20] LABS: OVALOCYTES 2+
[2022-05-07 07:21] LABS: MICROCYTOSIS 1+; TEAR DROP CELLS 1+
[2022-05-07] MEDS: INSULIN LISPRO (NovoLOG) PER UNIT SC SCH ×2 (07:30→12:14)
[2022-05-07] MEDS: IPRATROPIUM 0.5MG/ALBUTEROL 2.5MG INH SOL UD 3ML (DUONEB) INH SCH ×3 (07:31→15:48)
[2022-05-07] MEDS: ADVAIR HFA 45/21MCG INHALER INH SCH (07:31)
[2022-05-07] MEDS ORDERED: SODIUM BICARBONATE 325 MG TAB PO ONE (08:00)
[2022-05-07] MEDS: MIDODRINE 5 MG TAB PO SCH ×3 (08:00→16:00)
[2022-05-07 08:03] VITALS: BP 137/95
[2022-05-07] MEDS ORDERED: BACITAB PO (08:05)
[2022-05-07] MEDS ORDERED: SODI650T PO (08:05)
[2022-05-07] MEDS ORDERED: LEVO750T13 PO (08:05)
[2022-05-07] MEDS: OMEPRAZOLE 20MG CAP PO SCH (08:08)
[2022-05-07] MEDS: FEXOFENADINE 60MG TAB PO SCH (08:08)
[2022-05-07] MEDS: TOPIRAMATE (TopAMAX) 100 MG TAB PO SCH (08:08)
[2022-05-07] MEDS: ASPIRIN 81MG ENTERIC TABLET PO SCH (08:09)
[2022-05-07] MEDS: MONTELUKAST 10 MG TAB PO SCH (08:09)
[2022-05-07] MEDS: busPIRone 5 MG TAB PO SCH (08:09)
[2022-05-07] MEDS: TOPIRAMATE (TopAMAX) 25 MG TAB PO SCH (08:09)
[2022-05-07] MEDS ORDERED: UNRESOLVED CLARIFICATION ENTRY XX SCH (09:00)
[2022-05-07] MEDS ORDERED: CYCLOBENZAPRINE 5MG TABLET PO ONE (09:10)
[2022-05-07] MEDS ORDERED: SODIUM BICARBONATE 150 MEQ in STERILE WATER LITER BAG 1,000 ML IV ONE (10:00)
[2022-05-07 12:12] VITALS: BP 134/91
[2022-05-07 12:30] LABS: BLOOD UREA NITROGEN 14 MG/DL (7-18); CALCIUM LEVEL 9.4 MG/DL (8.5-10.1); CARBON DIOXIDE LEVEL 23 MEQ/L (21-32); CHLORIDE LEVEL 109 MEQ/L (98-107); CREATININE FOR GFR 0.91 MG/DL (0.55-1.30); GLOMERULAR FILTRATION RATE > 60.0 (>51); GLUCOSE, FASTING 135 MG/DL (70-100); POTASSIUM SERUM 3.8 MEQ/L (3.5-5.1); SODIUM LEVEL 138 MEQ/L (136-145)
[2022-05-07] MEDS ORDERED: CYCL5TAB PO (13:43)
[2022-05-07 14:00] VITALS: BP 123/82
[2022-05-07 16:09] LABS: BLOOD UREA NITROGEN 16 MG/DL (7-18); CALCIUM LEVEL 9.4 MG/DL (8.5-10.1); CARBON DIOXIDE LEVEL 23 MEQ/L (21-32); CHLORIDE LEVEL 108 MEQ/L (98-107); CREATININE FOR GFR 0.94 MG/DL (0.55-1.30); GLOMERULAR FILTRATION RATE > 60.0 (>51); GLUCOSE, FASTING 193 MG/DL (70-100); SODIUM LEVEL 139 MEQ/L (136-145)
[2022-05-07] MEDS ORDERED: ATORVASTATIN 20 MG TAB PO SCH (21:00)
[2022-05-07] MEDS ORDERED: **NOTE PATIENT COMMENT** MISC XX PRN (21:00)
== END 2022-05-07 17:45 | disposition home or self-care (01) | DRG 52 ==
LOC: M ED 15:43 → M ED INP 15:44 → OBSVTOIN 05-05 03:17 → M MSPAV 05-05 03:57
PROVIDERS: ADMIT Internal Medicine; ATTEND General Practice
PROC: 30233N1 Transfusion of Nonautologous Red Blood Cells into Peripheral Vein, Percutaneous Approach (ICD-10-PCS; principal; 2022-05-06)
DX: G93.40 Encephalopathy, unspecified (principal); D61.810 Antineoplastic chemotherapy induced pancytopenia; E87.2 Acidosis; C34.01 Malignant neoplasm of right main bronchus; I10 Essential (primary) hypertension; D72.819 Decreased white blood cell count, unspecified; J44.9 Chronic obstructive pulmonary disease, unspecified; I67.2 Cerebral atherosclerosis; E11.9 Type 2 diabetes mellitus without complications; I16.0 Hypertensive urgency; F17.210 Nicotine dependence, cigarettes, uncomplicated; R00.0 Tachycardia, unspecified; F31.9 Bipolar disorder, unspecified; I65.23 Occlusion and stenosis of bilateral carotid arteries; Z79.82 Long term (current) use of aspirin; Z79.4 Long term (current) use of insulin; Z79.899 Other long term (current) drug therapy; Z88.0 Allergy status to penicillin; Z86.73 Personal history of transient ischemic attack (TIA), and cerebral infarction without residual deficits; Z88.1 Allergy status to other antibiotic agents; Z80.9 Family history of malignant neoplasm, unspecified; Z88.8 Allergy status to other drugs, medicaments and biological substances; Z92.3 Personal history of irradiation; Z95.828 Presence of other vascular implants and grafts

== ENCOUNTER → 2022-05-04 | Outpatient (CLI) | payer OTHER ==
[~2022-05-04] MED LIST changes: +ADV100INH INH; +BACITAB PO; +BASA100I SC; -BASA100I SQ; +CYCL5TAB PO; +FEXO-112 PO; +LEVO750T13 PO; +NICO21DI38 TD; +RISP-10 PO; +SODI650T PO; +TOPI100T9 PO; -VICT18IN PO; +VICT18IN SC
== END ==
LOC: M PLARAD 09:30
PROVIDERS: ATTEND Internal Medicine Pulmonary Disease
DX: R91.8 Other nonspecific abnormal finding of lung field (principal)
CPT/HCPCS: 78815; A9552

== ENCOUNTER → 2022-06-03 | Outpatient (CLI) | payer OTHER ==
[~2022-06-03] MED LIST changes: +ADV100INH INH; +BACITAB PO; +BUTA-198 PO; +CYCL5TAB PO; +FEXO-112 PO; +FIOR1CAP PO; +LEVO1TAB40 PO; +METO10TA2 PO; +NICO21DI38 TD; +RISP-10 PO; +SIMV-252 PO; +SODI650T PO; +TOPI100T9 PO; -ZOCO10TA PO
== END ==
LOC: M ONCR 14:14
PROVIDERS: ATTEND General Practice
DX: C34.01 Malignant neoplasm of right main bronchus (principal); C34.02 Malignant neoplasm of left main bronchus; F17.210 Nicotine dependence, cigarettes, uncomplicated; G43.909 Migraine, unspecified, not intractable, without status migrainosus; Z79.4 Long term (current) use of insulin; Z79.51 Long term (current) use of inhaled steroids; Z79.82 Long term (current) use of aspirin; Z79.84 Long term (current) use of oral hypoglycemic drugs; Z79.891 Long term (current) use of opiate analgesic; Z79.899 Other long term (current) drug therapy; Z88.0 Allergy status to penicillin; Z88.1 Allergy status to other antibiotic agents; Z88.8 Allergy status to other drugs, medicaments and biological substances; Z92.21 Personal history of antineoplastic chemotherapy; Z92.3 Personal history of irradiation

== ENCOUNTER 2022-06-25 07:16 | Outpatient (RCR) | payer OTHER ==
[2022-07-10] MEDS ORDERED: GNP250TA9 PO (13:16)
[2022-07-17] MEDS ORDERED: MEMA1TAB3 PO ×2 (14:49→16:23)
[2022-07-17] MEDS ORDERED: MEMA10TA19 PO (14:50)
[2022-07-17] MEDS ORDERED: NICO2GUM42 MT (16:38)
== END 2022-07-17 ==
LOC: M ONCR 07:16
PROVIDERS: ATTEND General Practice
DX: Z51.0 Encounter for antineoplastic radiation therapy (principal); C34.01 Malignant neoplasm of right main bronchus

== ENCOUNTER → 2022-07-17 | Outpatient (RCR) | payer OTHER ==
[~2022-07-17] MED LIST changes: +GNP250TA9 PO; +MEMA10TA19 PO; +MEMA1TAB3 PO; +NICO2GUM42 MT
== END ==
LOC: M ONCR 07-02 07:32
PROVIDERS: ATTEND General Practice
DX: Z51.0 Encounter for antineoplastic radiation therapy (principal); C34.01 Malignant neoplasm of right main bronchus

== ENCOUNTER 2022-07-24 10:35 | Outpatient (CLI) | payer OTHER ==
[~2022-07-24] VITALS: Ht 154.9 cm; Wt 68.1 kg
[~2022-07-24 10:35] MED LIST changes: +ACETAMINOPHEN TAB 650MG DOSE (2X325MG) PO SCH; +diphenhydrAMINE 25MG CAP PO SCH
[2022-07-24 10:50] VITALS: BP 103/60
[2022-07-24 13:10] VITALS: BP 116/73
[2022-07-24 14:10] VITALS: BP 110/68
[2022-07-24 14:30] VITALS: BP 112/68
[2022-07-24] MEDS ORDERED: SODIUM CHLORIDE 0.9% INJ 10 ML SYR IV PRN (14:45)
[2022-07-24 15:00] VITALS: BP 108/81
[2022-07-25] MEDS ORDERED: SODIUM CHLORIDE 0.9% INJ 10 ML SYR IV SCH (09:00)
== END 2022-07-24 14:55 | disposition home or self-care (01) ==
LOC: M INFU 10:35
PROVIDERS: ATTEND Internal Medicine Medical Oncology
DX: C34.90 Malignant neoplasm of unspecified part of unspecified bronchus or lung (principal); Z88.0 Allergy status to penicillin; Z88.1 Allergy status to other antibiotic agents; Z88.8 Allergy status to other drugs, medicaments and biological substances
CPT/HCPCS: 36430; 36591; 86850; 86900; 86901; 86920; 96523; J1642; P9016

== ENCOUNTER 2022-08-11 12:45 | Outpatient (RCR) | payer OTHER ==
[~2022-08-11 12:45] MED LIST changes: -ACETAMINOPHEN TAB 650MG DOSE (2X325MG) PO SCH; +AZIT-12 PO; +CLOP75TA2; +PRED50TA PO; -diphenhydrAMINE 25MG CAP PO SCH
== END 2022-08-17 ==
LOC: M ONCR 12:45
PROVIDERS: ATTEND General Practice
DX: Z51.0 Encounter for antineoplastic radiation therapy (principal); C34.01 Malignant neoplasm of right main bronchus

== ENCOUNTER → 2022-08-25 | Outpatient (CLI) | payer OTHER ==
[~2022-08-25] MED LIST changes: +TRIA1CR80 TOP
== END ==
LOC: M ONCR 11:10
PROVIDERS: ATTEND General Practice
DX: S01.01XA Laceration without foreign body of scalp, initial encounter (principal); Y92.019 Unspecified place in single-family (private) house as the place of occurrence of the external cause; Z91.81 History of falling; Z79.899 Other long term (current) drug therapy

== ENCOUNTER → 2022-09-28 | Outpatient (CLI) | payer OTHER ==
[~2022-09-28] MED LIST changes: +ISOVUE-370 76% 100ML VIAL As Ordered ONE
== END ==
LOC: M RAD 12:57
PROVIDERS: ATTEND Nurse Practitioner
DX: C34.90 Malignant neoplasm of unspecified part of unspecified bronchus or lung (principal)

== ENCOUNTER → 2022-10-28 | Outpatient (CLI) | payer OTHER ==
[~2022-10-28] MED LIST changes: -ASMA1AER3 IN; -ISOVUE-370 76% 100ML VIAL As Ordered ONE; +MOME13HF5 IN; +NICO7DIS24 TD; +PRED10TA2; +PROHANCE 279.3MG/ML 15ML VIAL As Ordered ONE
== END ==
LOC: M RAD 10:49
PROVIDERS: ATTEND General Practice
DX: R94.02 Abnormal brain scan (principal); C34.01 Malignant neoplasm of right main bronchus
CPT/HCPCS: 70553; A9576

== ENCOUNTER → 2022-11-13 | Outpatient (CLI) | payer OTHER ==
[~2022-11-13] MED LIST changes: +FURO20TA2 PO; -PROHANCE 279.3MG/ML 15ML VIAL As Ordered ONE
== END ==
LOC: M ONCR 12:48
PROVIDERS: ATTEND General Practice
DX: C34.01 Malignant neoplasm of right main bronchus (principal); C78.7 Secondary malignant neoplasm of liver and intrahepatic bile duct; F17.218 Nicotine dependence, cigarettes, with other nicotine-induced disorders; M79.651 Pain in right thigh; R22.43 Localized swelling, mass and lump, lower limb, bilateral; Z79.02 Long term (current) use of antithrombotics/antiplatelets; Z79.4 Long term (current) use of insulin; Z79.51 Long term (current) use of inhaled steroids; Z79.52 Long term (current) use of systemic steroids; Z79.82 Long term (current) use of aspirin; Z79.84 Long term (current) use of oral hypoglycemic drugs; Z88.0 Allergy status to penicillin; Z88.1 Allergy status to other antibiotic agents; Z88.8 Allergy status to other drugs, medicaments and biological substances; Z92.21 Personal history of antineoplastic chemotherapy; Z92.3 Personal history of irradiation